=== PATIENT | male | born 1955 | race Caucasian/White ===

== ENCOUNTER → 2017-03-08 | Outpatient (CLI) | payer OTHER ==
[~2017-03-08] MED LIST: ASPI81TA81; CLON1TAB PO; CRAN450T; CYCL1TAB29 PO; DIPH1TAB36; DIPH25CA PO; GABA600T PO; GLIM1TAB PO; HALO1TAB PO; LATA0.002 EACH EYE; METF500T PO; PARO40TA2 PO; PHEN-426 PO; PRED-503 PO; PRED10 PO; PRIM50TA5 PO; STOO100T PO; TAMS0.4C4 PO; ZOLP10TA3 PO; [UNRECOGNIZED DRUG - CODE] EACH EYE
[2017-03-08 07:11] LABS: AUTOMATED NEUTROPHIL # 3.1 TH/MM3 (1.8-7.7); BASOPHIL % 0.6 % (0.0-2.0); EOSINOPHIL # 0.3 TH/MM3 (0-0.4); EOSINOPHIL % 4.7 % (0.0-4.0); HEMATOCRIT 41.9 % (39.0-51.0); HEMO FLAGS DIFF FINAL; LYMPH % 33.5 % (9.0-44.0); LYMPHOCYTE # 2.1 TH/MM3 (1.0-4.8); MEAN CELL VOLUME 88.4 FL (80.0-100.0); MEAN CORPUSCULAR HEMOGLOBIN 30.7 PG (27.0-34.0); MEAN CORPUSCULAR HGB CONC 34.7 % (32.0-36.0); MONO % 12.9 % (0.0-8.0); NEUT % 48.3 % (16.0-70.0); PLATELET COUNT 227 TH/MM3 (150-450); RED BLOOD COUNT 4.75 MIL/MM3 (4.50-5.90); RED CELL DISTRIBUTION WIDTH 13.7 % (11.6-17.2); WHITE BLOOD COUNT 6.4 TH/MM3 (4.0-11.0)
[2017-03-08 07:39] LABS: ALT (GPT) 57 U/L (12-78); ANION GAP 8 MEQ/L (5-15); AST (GOT) 35 U/L (15-37); BICARBONATE 29.1 MEQ/L (21.0-32.0); BLOOD UREA NITROGEN 12 MG/DL (7-18); CHLORIDE 102 MEQ/L (98-107); GLOMERULAR FILTRATION RATE 51 ML/MIN (>89); GLUCOSE,FASTING 199 MG/DL (74-99); POTASSIUM 4.3 MEQ/L (3.5-5.1); SODIUM (NA) 139 MEQ/L (136-145)
[2017-03-08 07:48] LABS: ALKALINE PHOSPHATASE 102 U/L (45-117); TOTAL BILIRUBIN ADULT 0.5 MG/DL (0.2-1.0)
[2017-03-08 13:40] LABS: HEMOGLOBIN A1a 0.9 %; HEMOGLOBIN A1b 2.4 %; HEMOGLOBIN Ao 81.6 %; HEMOGLOBIN LA1C 2.7 %; HEMOGLOBIN P3 4.5 %
== END ==
LOC: CLAB 06:34
PROVIDERS: ATTEND Family Medicine
DX: I10 Essential (primary) hypertension (principal); I63.9 Cerebral infarction, unspecified; E11.65 Type 2 diabetes mellitus with hyperglycemia; T56.0X1A Toxic effect of lead and its compounds, accidental (unintentional), initial encounter; Z91.19 Patient's noncompliance with other medical treatment and regimen
CPT/HCPCS: 36415; 80053; 83036; 83655; 84443; 85025

== ENCOUNTER → 2017-03-10 | Outpatient (CLI) | payer OTHER ==
--- NOTE | 2017-03-10 11:31 | RADRPT ---
EXAM DATE/TIME: 03/10/2017 10:03 [facility] COMPARISON: CT BRAIN W/O CONTRAST, February 21, 2015, 17:18. INDICATIONS : CVA. Left sided weakness and slurred speech for 2 months. MEDICAL HISTORY : Renal calculi. SURGICAL HISTORY : Tonsillectomy. ENCOUNTER: Initial ACUITY: 2 months PAIN SCORE: 0/10 LOCATION: head. TECHNIQUE: Multiplanar, multisequence MRI of the brain was performed without contrast. FINDINGS: CEREBRUM: There is mild to moderate atrophic change with sulcal and ventricular prominence. No evidence of midl ine shift, mass lesion, hemorrhage or acute infarction. No extraaxial fluid collections are seen. T he pituitary gland and suprasellar cistern are normal in configuration. WHITE MATTER: No significant signal abnormalities are seen in the white matter. POSTERIOR FOSSA: The cerebellum and brainstem are intact. The 4th ventricle is midline. The cerebellopontine angle is unremarkable. The cerebellar tonsils are normal in position. DIFFUSION IMAGING: No focal areas of restricted diffusion are seen. No evidence of acute infarction. EXTRACRANIAL: The visualized portions of the orbits and paranasal sinuses are unremarkable. CONCLUSION: 1. No acute hemorrhage, mass or acute infarction. 2. Mild to moderate atrophic change. Danny Eller MD on March 10, 2017 at 11:27 Board Certified Radiologist. This report was verified electronically.
== END ==
LOC: HRAD 10:01
PROVIDERS: ATTEND Family Medicine
DX: I63.9 Cerebral infarction, unspecified (principal)
CPT/HCPCS: 70551

== ENCOUNTER 2017-05-01 13:31 | Observation (INO) | payer OTHER ==
[~2017-05-01] VITALS: Ht 177.8 cm; Wt 84.0 kg
[~2017-05-01 13:31] MED LIST changes: -PRED10 PO
[2017-05-01 13:36] VITALS: BP 140/80; PULSE 85; RESP 18; TEMP 97.7; O2SAT 99
--- NOTE | 2017-05-01 13:48 | PD ---
HPI Chief Complaint: Altered Mental Status Time Seen by Provider: 13:48 Travel History International Travel<30 days: No Contact w/Intl Traveler<30days: No Traveled to known affect area: No History of Present Illness HPI 61-year-old male presents to emergency department by [facility] ambulance for evaluation. Patient has history of dementia, hypertension, TIAs, renal disease, presents to the emergency department after his ex- found him walking around the house naked. When [facility] arrived, patient was lying in his bed naked. Patient seemed oriented however as mentioned the curtains in the room looked like the ones he had in his bedroom, all the while the patient was in his bedroom. Patient here is a poor historian. He does report a history of lead poisoning. Reports his as his ex- however in review of records on March 18, the patient was evaluated by Dr. Perez for worsening confusion and MRI was ordered. Per Dr. Perez his note, At that time the was filing for divorce due to the stressors of caring for the patient. MRI showed no acute stroke. Patient has otherwise been well. He is had no recent illnesses, fever, chills. Patient states that at times he does get confused and he is aware of this. Denies chest or tightness. No difficulty breathing. No headaches, focal deficits, weakness. Patient has no other symptoms reported. PFSH Past Medical History Hx Anticoagulant Therapy: No Arthritis: No Asthma: No Autoimmune Disease: No Anxiety: Yes Depression: Yes Heart Rhythm Problems: No Cardiovascular Problems: Yes (MURMUR) High Cholesterol: Yes Chemotherapy: No Chest Pain: No Congestive Heart Failure: No COPD: No Cerebrovascular Accident: Yes ("Couple of mini strokes") Diabetes: Yes (type 2) Patient Takes Glucophage: Yes (METFORMIN) Diminished Hearing: No Gastrointestinal Disorders: Yes GERD: No Genitourinary: Yes (BPH) Headaches: Yes Hiatal Hernia: No Immune Disorder: Yes Kidney Stones: No (present on admission ) Medical other: Yes (LEAD POISONING) Musculoskeletal: Yes (back pain) Neurologic: No Reproductive: No Respiratory: Yes (bronchitis) Immunizations Current: No Migraines: No Renal Failure: No Seizures: No Sleep Apnea: No Ulcer: No Past Surgical History Abdominal Surgery: No Cardiac Surgery: No Ear Surgery: No Endocrine Surgery: No Eye Surgery: No Genitourinary Surgery: No Gynecologic Surgery: No Oral Surgery: No Pacemaker: No Thoracic Surgery: No Tonsillectomy: Yes 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 Primidone 50 Mg Tab 50 Mg PO BID Glimepiride 1 Mg Tab 1 Mg PO BID Take with breakfast or first main meal Gabapentin 600 Mg Tab 600 Mg PO HS Paroxetine (Paroxetine HCl) 40 Mg Tab 40 Mg PO BID Stool Softener (Docusate Sodium) 100 Mg Tab 100 Mg PO DAILY Reported Metformin (Metformin HCl) 500 Mg Tab 500 Mg PO DAILY IN THE MORNING With a meal Prednisone 10 Mg Tab 10 Mg PO BID Tamsulosin (Tamsulosin HCl) 0.4 Mg Cap 0.4 Mg PO HS Phenazopyridine (Phenazopyridine HCl) 100 Mg Tab 100 Mg PO BID PRN Diphenhydramine (Diphenhydramine HCl) 25 Mg Cap 25 Mg PO HS PRN Haloperidol 1 Mg Tab 1 Mg PO BID Flexeril (Cyclobenzaprine HCl) 10 Mg Tab 10 Mg PO BID Zolpidem (Zolpidem Tartrate) 10 Mg Tab 10 Mg PO HS PRN Clonazepam 1 Mg Tab 1.5 Mg PO TID takes 1.5 tabs tid Aspir-81 (Aspirin) 81 Mg Tabdr 81 Mg DAILY Review of Systems Except as stated in HPI: all other systems reviewed are Neg Physical Exam Narrative GENERAL: Well-nourished pleasantly confused male in no acute distress SKIN: Focused skin assessment warm/dry. HEAD: Atraumatic. Normocephalic. EYES: Pupils equal and round. No scleral icterus. No injection or drainage. ENT: No nasal bleeding or discharge. Mucous membranes pink and moist. NECK: Trachea midline. No JVD. CARDIOVASCULAR: Regular rate and rhythm. 2/6 systolic murmur appreciated. RESPIRATORY: No accessory muscle use. Clear to auscultation. Breath sounds equal bilaterally. GASTROINTESTINAL: Abdomen soft, non-tender, nondistended. Hepatic and splenic margins not palpable. MUSCULOSKELETAL: No obvious deformities. No clubbing. No cyanosis. No edema. NEUROLOGICAL: Awake and alert. No obvious cranial nerve deficits. Motor grossly within normal limits. Normal speech. Data Data Last Documented VS Vital Signs Date Time Temp Pulse Resp B/P Pulse Ox O2 Delivery O2 Flow Rate FiO2 05/01/17 15:50 84 18 135/84 99 Room Air 05/01/17 13:36 97.7 Orders Electrocardiogram (05/01/17 13:46) Ammonia (05/01/17 13:46) Complete Blood Count With Diff (05/01/17 13:46) Comprehensive Metabolic Panel (05/01/17 13:46) Creatine Kinase (Cpk) (05/01/17 13:46) Prothrombin Time / Inr (Pt) (05/01/17 13:46) Act Partial Throm Time (Ptt) (05/01/17 13:46) Thyroid Stimulating Hormone (05/01/17 13:46) Urinalysis - C+S If Indicated (05/01/17 13:46) Chest, Single Ap (05/01/17 13:46) Ct Brain W/O Iv Contrast(Rout) (05/01/17 13:46) Blood Glucose (05/01/17 13:46) Ecg Monitoring (05/01/17 13:46) Iv Access Insert/Monitor (05/01/17 13:46) Oximetry (05/01/17 13:46) Sodium Chloride 0.9% Flush (Ns Flush) (05/01/17 14:00) Psych Screen (05/01/17 16:24) Labs Laboratory Tests Test 05/01/17 05/01/17 05/01/17 13:55 13:58 14:51 White Blood Count 6.2 TH/MM3 Red Blood Count 5.02 MIL/MM3 Hemoglobin 13.9 GM/DL Hematocrit 43.1 % Mean Corpuscular Volume 85.8 FL Mean Corpuscular Hemoglobin 27.6 PG Mean Corpuscular Hemoglobin 32.2 % Concent Red Cell Distribution Width 13.4 % Platelet Count 241 TH/MM3 Mean Platelet Volume 8.9 FL Neutrophils (%) (Auto) 43.1 % Lymphocytes (%) (Auto) 32.0 % Monocytes (%) (Auto) 12.6 % Eosinophils (%) (Auto) 11.8 % Basophils (%) (Auto) 0.5 % Neutrophils # (Auto) 2.7 TH/MM3 Lymphocytes # (Auto) 2.0 TH/MM3 Monocytes # (Auto) 0.8 TH/MM3 Eosinophils # (Auto) 0.7 TH/MM3 Basophils # (Auto) 0.0 TH/MM3 CBC Comment DIFF FINAL Differential Comment Prothrombin Time 10.9 SEC Prothromb Time International 1.0 RATIO Ratio Activated Partial 28.0 SEC Thromboplast Time Sodium Level 139 MEQ/L Potassium Level 4.8 MEQ/L Chloride Level 103 MEQ/L Carbon Dioxide Level 31.4 MEQ/L Anion Gap 5 MEQ/L Blood Urea Nitrogen 11 MG/DL Creatinine 0.93 MG/DL Estimat Glomerular Filtration 82 ML/MIN Rate Random Glucose 84 MG/DL Calcium Level 9.7 MG/DL Total Bilirubin 0.5 MG/DL Aspartate Amino Transf 38 U/L (AST/SGOT) Alanine Aminotransferase 26 U/L (ALT/SGPT) Alkaline Phosphatase 109 U/L Total Creatine Kinase 83 U/L Total Protein 6.7 GM/DL Albumin 3.2 GM/DL Thyroid Stimulating Hormone 2.560 uIU/ML 3rd Gen Ammonia 24 MCMOL/L Urine Color YELLOW Urine Turbidity CLEAR Urine pH 5.0 Urine Specific Kila 1.020 Urine Protein TRACE mg/dL Urine Glucose (UA) 300 mg/dL Urine Ketones NEG mg/dL Urine Occult Blood NEG Urine Nitrite NEG Urine Bilirubin NEG Urine Urobilinogen LESS THAN 2.0 MG/DL Urine Leukocyte Esterase NEG Urine RBC 1 /hpf Urine WBC 3 /hpf Urine Squamous Epithelial <1 /hpf Cells Urine Hyaline Casts 3 /lpf Urine Mucus FEW /lpf Microscopic Urinalysis Comment CATH-CULT NOT IND MDM Medical Decision Making Medical Screen Exam Complete: Yes Emergency Medical Condition: Yes Medical Record Reviewed: Yes Differential Diagnosis Dementia versus electrolyte abnormality versus intracranial hemorrhage versus neoplasm versus UTI Narrative Course 61-year-old male presents to emergency department for evaluation of confusion. Per the patient's record, confusion is not new as he has history of dementia. He had a MRI on March 20 that was without acute concern. Patient denies any pain. States that he no fever confused sometimes. States that he has been falling and this is consistent with his most recent primary care visit with Dr. Perez. Vital signs are stable. Neuro exam is nonfocal. Laboratory Tests Test 6/05/01/17 05/01/17 13:55 13:58 14:51 White Blood Count 6.2 TH/MM3 Red Blood Count 5.02 MIL/MM3 Hemoglobin 13.9 GM/DL Hematocrit 43.1 % Mean Corpuscular Volume 85.8 FL Mean Corpuscular Hemoglobin 27.6 PG Mean Corpuscular Hemoglobin 32.2 % Concent Red Cell Distribution Width 13.4 % Platelet Count 241 TH/MM3 Mean Platelet Volume 8.9 FL Neutrophils (%) (Auto) 43.1 % Lymphocytes (%) (Auto) 32.0 % Monocytes (%) (Auto) 12.6 % Eosinophils (%) (Auto) 11.8 % Basophils (%) (Auto) 0.5 % Neutrophils # (Auto) 2.7 TH/MM3 Lymphocytes # (Auto) 2.0 TH/MM3 Monocytes # (Auto) 0.8 TH/MM3 Eosinophils # (Auto) 0.7 TH/MM3 Basophils # (Auto) 0.0 TH/MM3 CBC Comment DIFF FINAL Differential Comment Prothrombin Time 10.9 SEC Prothromb Time International 1.0 RATIO Ratio Activated Partial 28.0 SEC Thromboplast Time Sodium Level 139 MEQ/L Potassium Level 4.8 MEQ/L Chloride Level 103 MEQ/L Carbon Dioxide Level 31.4 MEQ/L Anion Gap 5 MEQ/L Blood Urea Nitrogen 11 MG/DL Creatinine 0.93 MG/DL Estimat Glomerular Filtration 82 ML/MIN Rate Random Glucose 84 MG/DL Calcium Level 9.7 MG/DL Total Bilirubin 0.5 MG/DL Aspartate Amino Transf 38 U/L (AST/SGOT) Alanine Aminotransferase 26 U/L (ALT/SGPT) Alkaline Phosphatase 109 U/L Total Creatine Kinase 83 U/L Total Protein 6.7 GM/DL Albumin 3.2 GM/DL Thyroid Stimulating Hormone 2.560 uIU/ML 3rd Gen Ammonia 24 MCMOL/L Urine Color YELLOW Urine Turbidity CLEAR Urine pH 5.0 Urine Specific Kila 1.020 Urine Protein TRACE mg/dL Urine Glucose (UA) 300 mg/dL Urine Ketones NEG mg/dL Urine Occult Blood NEG Urine Nitrite NEG Urine Bilirubin NEG Urine Urobilinogen LESS THAN 2.0 MG/DL Urine Leukocyte Esterase NEG Urine RBC 1 /hpf Urine WBC 3 /hpf Urine Squamous Epithelial <1 /hpf Cells Urine Hyaline Casts 3 /lpf Urine Mucus FEW /lpf Microscopic Urinalysis Comment CATH-CULT NOT IND Lab work is without acute concern. Patient will be discharged home. Attempt to contact /exwife has been unsuccessful at this time. [id number] patient has been discharged and case management has contacted the ex- who resides with the patient. She is refusing at this time to take the patient back and states "she is going to kill me." Case management request a psychiatric screening. This is ordered. 175 I'm informed that case management has again contacted the who is refusing for the patient to return home. Case management has contacted [facility]. The patient will be admitted observation This time. [facility] [id number] Tejada Patient will be admitted observation at this time. Diagnosis Primary Impression: Confusion Additional Impression: History of dementia Admitting Information Admitting Physician Requests: Observation Referrals: Primary Care Physician Patient Instructions: Dementia (ED), General Instructions Additional Instructions: Follow-up with a primary care provider Return immediately with any acute worsening symptoms Med/Other Pt SpecificInfo: No Change to Meds Condition: Stable Mary Roldan May 01, 2017 13:48
[2017-05-01] MEDS ORDERED: SODIUM CHLORIDE 0.9% FLUSH 5 ML FLUSH IV FLUSH PRN (14:00)
--- NOTE | 2017-05-01 14:09 | RADRPT ---
EXAM DATE/TIME: 05/01/2017 13:44 [facility] COMPARISON: CHEST SINGLE AP, August 28, 2016, 0:00. INDICATIONS : Dizziness, weakness. MEDICAL HISTORY : Diabetes mellitus type II. SURGICAL HISTORY : None. ENCOUNTER: Initial ACUITY: 1 day PAIN SCORE: 0/10 LOCATION: Bilateral chest FINDINGS: Portable AP view of the chest demonstrates a normal-sized cardiac silhouette. No effusion, consolidat ion, or pneumothorax is visualized. The bones and soft tissues demonstrate no acute abnormality. The peripheral inferior right hemithorax is not completely visualized. CONCLUSION: No acute cardiopulmonary abnormality is identified. Akira De Leon MD on May 01, 2017 at 14:04 Board Certified Radiologist. This report was verified electronically.
[2017-05-01 14:28] LABS: AUTOMATED NEUTROPHIL # 2.7 TH/MM3 (1.8-7.7); BASOPHIL % 0.5 % (0.0-2.0); EOSINOPHIL # 0.7 TH/MM3 (0-0.4); EOSINOPHIL % 11.8 % (0.0-4.0); HEMATOCRIT 43.1 % (39.0-51.0); HEMO FLAGS DIFF FINAL; MEAN CELL VOLUME 85.8 FL (80.0-100.0); MEAN CORPUSCULAR HEMOGLOBIN 27.6 PG (27.0-34.0); MEAN CORPUSCULAR HGB CONC 32.2 % (32.0-36.0); MONO % 12.6 % (0.0-8.0); NEUT % 43.1 % (16.0-70.0); PLATELET COUNT 241 TH/MM3 (150-450); RED BLOOD COUNT 5.02 MIL/MM3 (4.50-5.90); RED CELL DISTRIBUTION WIDTH 13.4 % (11.6-17.2); WHITE BLOOD COUNT 6.2 TH/MM3 (4.0-11.0)
[2017-05-01 14:36] LABS: PROTHROMBIN TIME - PATIENT 10.9 SEC (9.8-11.6)
[2017-05-01 14:39] VITALS: O2SAT 99
[2017-05-01 15:15] LABS: BLOOD, URINE NEG (NEG); COMMENT (UR) CATH-CULT NOT IND; CULTURE IF INDICATED CATH CULTURE NOT IND; GLUCOSE,URINE 300 mg/dL (NEG); HYALINE CAST, URINE 3 /lpf (RARE); KETONE, URINE NEG (NEG); MUCUS URINE FEW /lpf (OCC); NITRITE,URINE NEG (NEG); SQUAMOUS EPITHELIAL CELL URINE <1 /hpf (0-5); URINE COLOR YELLOW (YELLW/STRAW)
[2017-05-01 15:21] LABS: ALKALINE PHOSPHATASE 109 U/L (45-117); ALT (GPT) 26 U/L (12-78); ANION GAP 5 MEQ/L (5-15); AST (GOT) 38 U/L (15-37); BICARBONATE 31.4 MEQ/L (21.0-32.0); BLOOD UREA NITROGEN 11 MG/DL (7-18); CHLORIDE 103 MEQ/L (98-107); GLOMERULAR FILTRATION RATE 82 ML/MIN (>89); SODIUM (NA) 139 MEQ/L (136-145); TOTAL BILIRUBIN ADULT 0.5 MG/DL (0.2-1.0)
[2017-05-01] MEDS ORDERED: METF500T PO (15:21)
[2017-05-01] MEDS ORDERED: PRED10 PO (15:21)
[2017-05-01 15:22] LABS: CREATINE KINASE 83 U/L (39-308); POTASSIUM 4.8 MEQ/L (3.5-5.1)
--- NOTE | 2017-05-01 15:26 | RADRPT ---
EXAM DATE/TIME: 05/01/2017 14:36 [facility] COMPARISON: CT BRAIN W/O CONTRAST, February 21, 2015, 17:18. INDICATIONS : Altered mental status, balance problems. RADIATION DOSE: 37.12 CTDIvol (mGy) MEDICAL HISTORY : Stroke. Seizures. Dementia. SURGICAL HISTORY : Tonsillectomy. ENCOUNTER: Initial ACUITY: 1 day PAIN SCALE: 0/10 LOCATION: cranial TECHNIQUE: Multiple contiguous axial images were obtained of the head. Using automated exposure control and adj ustment of the mA and/or kV according to patient size, radiation dose was kept as low as reasonably a chievable to obtain optimal diagnostic quality images. FINDINGS: CEREBRUM: The ventricles are normal for age. No evidence of midline shift, mass lesion, hemorrhage or acute in farction. No extra-axial fluid collections are seen. POSTERIOR FOSSA: The cerebellum and brainstem are intact. The 4th ventricle is midline. The cerebellopontine angle i s unremarkable. EXTRACRANIAL: The visualized portion of the orbits is intact. SKULL: The calvaria is intact. No evidence of skull fracture. CONCLUSION: 1. No acute intracranial abnormality. Kody Jackson MD on May 01, 2017 at 15:23 Board Certified Radiologist. This report was verified electronically.
[2017-05-01 15:50] VITALS: BP 135/84; PULSE 84; RESP 18; O2SAT 99
[2017-05-01 18:05] VITALS: BP 127/88; PULSE 84; RESP 16; O2SAT 98
--- NOTE | 2017-05-01 18:30 | HHI.HP ---
[facility] Service [facility] Primary Care Physician No Primary Care Physician Admission Diagnosis Confusion; history of dementia; refusing patient return home Diagnoses: Chief Complaint: Confusion Travel History International Travel<30 Days: No Contact w/Intl Traveler <30 Da: No Traveled to Known Affected Are: No History of Present Illness Patient is a 61-year-old male with history of dementia TIA hypertension who was brought in by called EMS apparently because claimed that the patient was walking around naked in the house. Patient was brought in here and was evaluated by ER physician. Was seen by 6 site screen. Patient currently on exam is very cooperative A and O 3. He states that the he lives with his pretty much independent in all ADLs. He states that he had a "weird day and I fell off the bed and hit my head on the wall. Patient states that he woke up later feeling unsteady on his feet. He was evaluated here in the ER labs head CT negative. Vital signs stable. Patient was able to give the entire history for for me. On review of ER discussion when the patient was cleared to be discharged and when they called his . refused to take him back and states that "he is too much for me to take care of". Patient admitted overnight for further evaluation of disposition. Patient currently is very pleasant cooperative denies any pain. The much in ambulate independently. Continent of urine and stools. Review of Systems Constitutional: DENIES: Diaphoretic episodes, Fatigue, Fever, Weight gain, Weight loss, Chills, Dizziness, Change in appetite, Night Sweats Ears, nose, mouth, throat: DENIES: Tinnitus, Hearing loss, Vertigo, Nasal discharge, Oral lesions, Throat pain, Hoarseness, Ear Pain, Running Nose, Epistaxis, Sinus Pain, Toothache, Odynophagia Respiratory: DENIES: Apneas, Cough, Snoring, Wheezing, Hemoptysis, Sputum production, Shortness of breath Cardiovascular: DENIES: Chest pain, Palpitations, Syncope, Dyspnea on Exertion , PND, Lower Extremity Edema, Orthopnea, Claudication Gastrointestinal: DENIES: Abdominal pain, Black stools, Bloody stools, Constipation, Diarrhea, Nausea, Vomiting, Difficulty Swallowing, Anorexia Genitourinary: DENIES: Sexual dysfunction, Urinary frequency, Urinary incontinence, Urgency, Hematuria, Dysuria, Nocturia, Penile Discharge, Testicular Pain, Testicular Swelling Musculoskeletal: DENIES: Joint pain, Muscle aches, Stiffness, Joint Swelling, Back pain, Neck pain Integumentary: DENIES: Abnormal pigmentation, Nail changes, Pruritus, Rash Hematologic/lymphatic: DENIES: Bruising, Lymphadenopathy Immunologic/allergic: DENIES: Eczema, Urticaria Neurologic: DENIES: Abnormal gait, Headache, Localized weakness, Paresthesias, Seizures, Speech Problems, Tremor, Poor Balance Psychiatric: COMPLAINS OF: Confusion (per has some episodes of confusion/ dementia) Past Family Social History Past Medical History Hypertension Patient states he is on a lot of medications and his sets up the pills for him Past Surgical History No major surgeries Reported Medications Per list from ER Flomax Gabapentin Paroxetine Haloperidol Primidone Clonazepam Metformin Flexeril Diphenhydramine Aspirin The omeprazole right Allergies: Coded Allergies: Codeine (Verified Allergy, Unknown, 05/01/17) Family History Noncontributory Social History Never smoked. History of alcohol abuse last drink was almost like in 1984 Denies substance abuse Physical Exam Vital Signs Vital Signs Date Time Temp Pulse Resp B/P Pulse Ox O2 Delivery O2 Flow Rate FiO2 05/01/17 18:05 84 16 127/88 98 Room Air 05/01/17 15:50 84 18 135/84 99 Room Air 05/01/17 14:39 99 Room Air 05/01/17 13:43 83 18 99 Room Air 05/01/17 13:36 97.7 85 18 140/80 99 Physical Exam GENERAL: This is a well-nourished, well-developed patient, in no apparent distress. SKIN: No rashes, ecchymoses or lesions. Cool and dry. HEAD: Atraumatic. Normocephalic. No temporal or scalp tenderness. EYES: Pupils equal round and reactive. Extraocular motions intact. No scleral icterus. ENT: Nose without bleeding, purulent drainage or septal hematoma. Throat without erythema, . Airway patent. NECK: Trachea midline. No JVD or lymphadenopathy. Supple, nontender, no meningeal signs. CARDIOVASCULAR: Regular rate and rhythm without murmurs, gallops, or rubs. RESPIRATORY: Clear to auscultation. Breath sounds equal bilaterally. No wheezes , rales, or rhonchi. GASTROINTESTINAL: Abdomen soft, non-tender, nondistended. No hepato-splenomegaly , or palpable masses. No guarding. MUSCULOSKELETAL: Extremities without clubbing, cyanosis, or edema. No joint tenderness, effusion, or edema noted. No calf tenderness. Negative Homans sign bilaterally. NEUROLOGICAL: Awake and alert. Cranial nerves II through XII intact. Motor and sensory grossly within normal limits. Five out of 5 muscle strength in all muscle groups. Normal speech. Gait slow but steady Laboratory Laboratory Tests Test 05/01/17 05/01/17 05/01/17 13:55 13:58 14:51 White Blood Count 6.2 Red Blood Count 5.02 Hemoglobin 13.9 Hematocrit 43.1 Mean Corpuscular Volume 85.8 Mean Corpuscular Hemoglobin 27.6 Mean Corpuscular Hemoglobin 32.2 Concent Red Cell Distribution Width 13.4 Platelet Count 241 Mean Platelet Volume 8.9 Neutrophils (%) (Auto) 43.1 Lymphocytes (%) (Auto) 32.0 Monocytes (%) (Auto) 12.6 Eosinophils (%) (Auto) 11.8 Basophils (%) (Auto) 0.5 Neutrophils # (Auto) 2.7 Lymphocytes # (Auto) 2.0 Monocytes # (Auto) 0.8 Eosinophils # (Auto) 0.7 Basophils # (Auto) 0.0 CBC Comment DIFF FINAL Differential Comment Prothrombin Time 10.9 Prothromb Time International 1.0 Ratio Activated Partial 28.0 Thromboplast Time Sodium Level 139 Potassium Level 4.8 Chloride Level 103 Carbon Dioxide Level 31.4 Anion Gap 5 Blood Urea Nitrogen 11 Creatinine 0.93 Estimat Glomerular Filtration 82 Rate Random Glucose 84 Calcium Level 9.7 Total Bilirubin 0.5 Aspartate Amino Transf 38 (AST/SGOT) Alanine Aminotransferase 26 (ALT/SGPT) Alkaline Phosphatase 109 Total Creatine Kinase 83 Total Protein 6.7 Albumin 3.2 Thyroid Stimulating Hormone 2.560 3rd Gen Ammonia 24 Urine Color YELLOW Urine Turbidity CLEAR Urine pH 5.0 Urine Specific [place] 1.020 Urine Protein TRACE Urine Glucose (UA) 300 Urine Ketones NEG Urine Occult Blood NEG Urine Nitrite NEG Urine Bilirubin NEG Urine Urobilinogen LESS THAN 2.0 Urine Leukocyte Esterase NEG Urine RBC 1 Urine WBC 3 Urine Squamous Epithelial <1 Cells Urine Hyaline Casts 3 Urine Mucus FEW Microscopic Urinalysis Comment CATH-CULT NOT IND Result Diagram: 05/01/17 1355 05/01/17 1355 Imaging Last Impressions Head CT 05/01/17 1346 Signed Impressions: Service Date/Time: Monday, May 01, 2017 14:36 - CONCLUSION: 1. No acute intracranial abnormality. Kody Jackson MD Chest X-Ray 05/01/17 1346 Signed Impressions: Service Date/Time: Monday, May 01, 2017 13:44 - CONCLUSION: No acute cardiopulmonary abnormality is identified. Akira De Leon MD Assessment and Plan Assessment and Plan 61-year-old male brought in here by because of Acute confusion patient right now appears very lucid. Some baseline dementia. UA complete metabolic panel CBC CT all normal chest x-ray normal, EKG reviewed by me unremarkable We'll check neuro vital signs every shift head CT negative. Lab works unremarkable. Continue home meds History of diabetes type 2. States that took him off the diabetic medications. Monitor blood sugars for now range +glucosuria, BG on chemistry normal. check FS bid and record. check hemoglobin a1C Metformin on the medlist-once daily- will hold off for now History of glaucoma. Continue eyedrops History of BPH. Continue Flomax. UA negative Up and ambulate, Out of chair tid. CM consulted for DC planning Admit overnight for observation and will ask case management for assistance. Discussed Condition With Patient and staff nurse and ER physician Titus Tejada MD May 01, 2017 18:30
[2017-05-01] MEDS ORDERED: diphenhydrAMINE HCL 25 MG CAP PO PRN (18:45)
[2017-05-01 20:50] VITALS: BP 155/93; PULSE 90; RESP 20; TEMP 98.4; O2SAT 96
[2017-05-01] MEDS: GABAPENTIN 300 MG CAP PO SCH (21:12)
[2017-05-01] MEDS: CYCLOBENZAPRINE HCL 10 MG TAB PO SCH (21:12)
[2017-05-01] MEDS: TAMSULOSIN HCL 0.4 MG CAP PO SCH (21:12)
[2017-05-01] MEDS: PRIMIDONE 50 MG TAB PO SCH (22:01)
[2017-05-01] MEDS: HALOPERIDOL 1 MG TAB PO SCH (22:01)
[2017-05-01] MEDS: TIMOLOL MALEATE 0.5% OPHT SOLN 5 ML BTL EACH EYE SCH (22:01)
[2017-05-01] MEDS: LATANOPROST 0.005% OPHT SOLN 2.5 ML BTL EACH EYE SCH (22:01)
[2017-05-02 00:05] VITALS: BP 121/74; PULSE 90; RESP 20; TEMP 98.5; O2SAT 93
[2017-05-02 03:51] VITALS: BP 120/78; PULSE 78; RESP 20; TEMP 98.5; O2SAT 92
[2017-05-02 07:28] VITALS: BP 131/80; PULSE 86; RESP 16; TEMP 98.5; O2SAT 95
--- NOTE | 2017-05-02 07:43 | HHI.PR ---
Subjective Remarks awake and alert, denies any headache, or pains states he did not sleep well last night-"they keep on coming taking my blood pressure" states huis name and 's name "Tracy" knows he is "in bed in the hospital", oriented to year speech slow but clear Objective Vitals Vital Signs Date Time Temp Pulse Resp B/P Pulse Ox O2 Delivery O2 Flow Rate FiO2 05/02/17 07:28 98.5 86 16 131/80 95 05/02/17 03:51 98.5 78 20 120/78 92 05/02/17 00:05 98.5 90 20 121/74 93 05/01/17 20:50 98.4 90 20 155/93 96 05/01/17 18:05 84 16 127/88 98 Room Air 05/01/17 15:50 84 18 135/84 99 Room Air 05/01/17 14:39 99 Room Air 05/01/17 13:43 83 18 99 Room Air 05/01/17 13:36 97.7 85 18 140/80 99 I/O 05/01/17 05/01/17 05/01/17 05/02/17 05/02/17 05/02/17 07:00 15:00 23:00 07:00 15:00 23:00 Intake Total 120 ml Output Total 650 ml Balance -530 ml Intake Oral 120 ml Output Urine Total 650 ml # Voids 4 Result Diagram: 05/01/17 1355 05/01/17 1355 Imaging Last Impressions Head CT 05/01/17 1346 Signed Impressions: Service Date/Time: Monday, May 01, 2017 14:36 - CONCLUSION: 1. No acute intracranial abnormality. Kody Jackson MD Chest X-Ray 05/01/17 1346 Signed Impressions: Service Date/Time: Monday, May 01, 2017 13:44 - CONCLUSION: No acute cardiopulmonary abnormality is identified. Akira De Leon MD Objective Remarks awake and alert, oriented x 3, speech slow but clear, affect blunt anicteric lungs no rales regular rhythm abdmen soft, nontender extremities no edema moves all extremities equally A/P Assessment and Plan 61-year-old male brought in here by because of Acute confusion patient right now appears very lucid. Underlying dementia. UA,complete metabolic panel, CBC, TSH -all normal chest x-ray normal, EKG - reviewed by me unremarkable Head CT - no NPH We'll check neuro vital signs every shift Continue home meds check B12, folate level History of diabetes type 2. States that took him off the diabetic medications. Monitor blood sugars for now range +glucosuria, BG on chemistry normal. check FS bid and record. check hemoglobin a1C Metformin still on the med list-once daily-- but pt states has been off it - discontinue History of glaucoma. Continue eyedrops History of BPH. Continue Flomax. UA negative Up and ambulate, Out of chair tid for all meals.PT consult gait eval/safety CM consulted for DC planning Titus Tejada MD May 02, 2017 07:43
[2017-05-02] MEDS ORDERED: metFORMIN HCL 500 MG TAB PO SCH (09:00)
[2017-05-02] MEDS ORDERED: clonazePAM 1 MG TAB PO SCH (09:00)
[2017-05-02] MEDS: PARoxetine HCL 20 MG TAB PO SCH (09:55)
[2017-05-02] MEDS: PRIMIDONE 50 MG TAB PO SCH ×2 (09:55→22:44)
[2017-05-02] MEDS: HALOPERIDOL 1 MG TAB PO SCH ×2 (09:55→22:44)
[2017-05-02] MEDS: CYCLOBENZAPRINE HCL 10 MG TAB PO SCH ×2 (09:55→22:44)
[2017-05-02] MEDS: TIMOLOL MALEATE 0.5% OPHT SOLN 5 ML BTL EACH EYE SCH ×2 (09:55→22:43)
[2017-05-02] MEDS: DOCUSATE SODIUM 100 MG CAP PO SCH (09:55)
[2017-05-02] MEDS: ASPIRIN EC 81 MG TABEC PO SCH (09:55)
[2017-05-02] MEDS: clonazePAM 1 MG TAB PO SCH ×3 (09:56→18:08)
[2017-05-02 11:15] VITALS: BP 128/88; PULSE 88; RESP 16; TEMP 98.4; O2SAT 90
--- NOTE | 2017-05-02 12:29 | EKG ---
Date Performed: 05/01/2017 Time Performed: 14:24:32 PTAGE: 61 years EKG: Sinus rhythm NONSPECIFIC T-WAVE ABNORMALITY BORDERLINE ECG PREVIOUS TRACING : 06/24/2016 17.42 Compared to prior tracing no significant change DOCTOR: Rafa Palm Interpretating Date/Time 05/02/2017 12:25:29
[2017-05-02 14:57] VITALS: BP 119/86; PULSE 83; RESP 16; TEMP 98.5; O2SAT 95
[2017-05-02] MEDS: LATANOPROST 0.005% OPHT SOLN 2.5 ML BTL EACH EYE SCH (22:43)
[2017-05-02] MEDS: TAMSULOSIN HCL 0.4 MG CAP PO SCH (22:44)
[2017-05-02] MEDS: GABAPENTIN 300 MG CAP PO SCH (22:44)
[2017-05-03] MEDS: ZOLPIDEM TARTRATE 10 MG TAB PO PRN ×2 (01:07→20:10)
[2017-05-03 04:18] VITALS: BP 109/72; PULSE 79; RESP 14; TEMP 98.7; O2SAT 91
[2017-05-03] MEDS: ASPIRIN EC 81 MG TABEC PO SCH (08:19)
[2017-05-03] MEDS: DOCUSATE SODIUM 100 MG CAP PO SCH (08:19)
[2017-05-03] MEDS: clonazePAM 1 MG TAB PO SCH ×3 (08:19→17:07)
[2017-05-03] MEDS: PARoxetine HCL 20 MG TAB PO SCH (08:19)
[2017-05-03] MEDS: TIMOLOL MALEATE 0.5% OPHT SOLN 5 ML BTL EACH EYE SCH ×2 (08:19→20:09)
[2017-05-03] MEDS: CYCLOBENZAPRINE HCL 10 MG TAB PO SCH ×2 (08:19→20:10)
[2017-05-03] MEDS: HALOPERIDOL 1 MG TAB PO SCH ×2 (08:19→20:10)
[2017-05-03] MEDS: PRIMIDONE 50 MG TAB PO SCH ×2 (08:19→21:00)
[2017-05-03 08:30] VITALS: BP 109/70; RESP 18; TEMP 98
--- NOTE | 2017-05-03 10:37 | HHI.PR ---
Subjective Remarks Follow up for confusion. The patient is currently awake, alert, oriented x4. He has no medical complaints today. Denies any headache, lightheadedness, dizziness , chest pain, shortness of breath, abdominal or urinary complaints. He states his called the police because he was disoriented and unsteady on his feet. He states him and his have not been getting along recently. He is unsure if he can return to his home. Objective Vitals Vital Signs Date Time Temp Pulse Resp B/P Pulse Ox O2 Delivery O2 Flow Rate FiO2 05/03/17 08:30 98.0 18 109/70 05/03/17 04:18 98.7 79 14 109/72 91 05/02/17 14:57 98.5 83 16 119/86 95 05/02/17 11:15 98.4 88 16 128/88 90 I/O 05/02/17 05/02/17 05/02/17 05/03/17 05/03/17 05/03/17 07:00 15:00 23:00 07:00 15:00 23:00 Intake Total 120 ml 360 ml Output Total 650 ml 350 ml Balance -530 ml -350 ml 360 ml Intake Oral 120 ml 360 ml Output Urine Total 650 ml 350 ml # Voids 4 Result Diagram: 05/01/17 1355 05/01/17 1355 Imaging Last Impressions Head CT 05/01/17 1346 Signed Impressions: Service Date/Time: Monday, May 01, 2017 14:36 - CONCLUSION: 1. No acute intracranial abnormality. Kody Jackson MD Chest X-Ray 05/01/17 1346 Signed Impressions: Service Date/Time: Monday, May 01, 2017 13:44 - CONCLUSION: No acute cardiopulmonary abnormality is identified. Akira De Leon MD Objective Remarks GENERAL: Well-nourished, well-developed male patient in NAD. SKIN: Warm and dry. No rash. HEENT: Normocephalic. Atraumatic. Pupils equal and round. Mucous membranes pink and moist. NECK: Supple. Trachea midline. CARDIOVASCULAR: Regular rate and rhythm. S1, S2 noted. 2/6 systolic murmur noted. RESPIRATORY: No accessory muscle use. Clear to auscultation. Breath sounds equal bilaterally. GASTROINTESTINAL: Abdomen soft, non-tender, nondistended. Normoactive bowel sounds x4. MUSCULOSKELETAL: No obvious deformities. Extremities without clubbing, cyanosis , or edema. NEUROLOGICAL: Awake and alert. No obvious cranial nerve deficits. Motor grossly within normal limits. 5/5 muscle strength in bilateral upper and lower extremities. Normal speech. PSYCHIATRIC: Appropriate mood and affect; insight and judgment normal. Medications and IVs Current Medications Medications (Trade) Dose Ordered Sig/Fredrick Route Start Time Stop Time Status Last Admin (NS Flush) 2 ml UNSCH PRN IV FLUSH 05/01/17 14:00 (Ecotrin Ec) 81 mg DAILY PO 05/02/17 09:00 05/03/17 08:19 (Flexeril) 10 mg BID PO 05/01/17 21:00 05/03/17 08:19 (Benadryl) 25 mg HS PRN PO 05/01/17 18:45 (Neurontin) 600 mg HS PO 05/01/17 21:00 05/02/17 22:44 (Haldol) 1 mg BID PO 05/01/17 21:00 05/03/17 08:19 (Xalatan 0.005% Opth Soln) 1 drop HS EACH EYE 05/01/17 21:00 05/02/17 22:43 (Paxil) 40 mg DAILY PO 05/02/17 09:00 05/03/17 08:19 (Mysoline) 50 mg BID PO 05/01/17 21:00 05/03/17 08:19 (Flomax) 0.4 mg HS PO 05/01/17 21:00 05/02/17 22:44 (Timoptic 0.5% Opth Soln) 1 drop BID EACH EYE 05/01/17 21:00 05/03/17 08:19 (Ambien) 10 mg HS PRN PO 05/01/17 18:45 05/03/17 01:07 (Colace) 100 mg DAILY PO 05/02/17 09:00 05/03/17 08:19 (KlonoPIN) 1 mg TID PO 05/02/17 09:00 05/03/17 08:19 A/P Assessment and Plan 61-year-old male brought in here by because of Acute Encephalopathy/Confusion: patient's reportedly called 911 for acute confusion, per EMS patient found lying in his bed naked. History of underlying dementia and undergoing outpatient work up for intermittent confusion. Patient currently AAOx4. UA, CMP, CBC, TSH, Vit B12, folate -all normal CXR images reviewed, no acute findings Head CT images reviewed, no acute findings or concern for NPH Monitor neuro checks Continue home medications Consult PT, no PT needed at discharge Case management to assist with discharge planning History of diabetes type 2. States that took him off the diabetic medications. +glucosuria, BG on chemistry normal check hemoglobin a1C Blood glucose all < 130 since arrival. History of glaucoma. Continue eyedrops. History of BPH. Continue Flomax. UA negative CM consulted for DC planning Discharge Planning Case management to assist with discharge planning. The patient is medically stable for discharge. Bouchra Craig PA-C May 03, 2017 10:37 am
[2017-05-03] MEDS ORDERED: CLON1TAB PO (10:39)
[2017-05-03 15:25] VITALS: BP 108/72; PULSE 78; RESP 16; TEMP 98; O2SAT 98
[2017-05-03 16:36] LABS: HEMOGLOBIN A1a 0.8 %; HEMOGLOBIN Ao 84.7 %; HEMOGLOBIN LA1C 2.2 %; HEMOGLOBIN P3 3.8 %
[2017-05-03 19:24] VITALS: BP 137/72; PULSE 81; RESP 18; TEMP 98.5; O2SAT 95
[2017-05-03] MEDS: TAMSULOSIN HCL 0.4 MG CAP PO SCH (20:10)
[2017-05-03] MEDS: LATANOPROST 0.005% OPHT SOLN 2.5 ML BTL EACH EYE SCH (20:10)
[2017-05-03] MEDS: GABAPENTIN 300 MG CAP PO SCH (20:10)
[2017-05-04 00:26] VITALS: BP 104/64; PULSE 74; RESP 18; TEMP 98.2; O2SAT 98
[2017-05-04 04:19] VITALS: BP 104/71; PULSE 78; RESP 16; TEMP 97.4; O2SAT 93
--- NOTE | 2017-05-04 08:56 | HHI.PR ---
Subjective Remarks Follow up for confusion. The patient is awake, alert, oriented x4. He denies any medical complaints. Eating well. Having normal BMs. He states he wants to go home. He states he doesn't want to go to any fci or rehab because he already has a home. He understands his might not want him there however he states he can take care of himself. Objective Vitals Vital Signs Date Time Temp Pulse Resp B/P Pulse Ox O2 Delivery O2 Flow Rate FiO2 05/04/17 04:19 97.4 78 16 104/71 93 05/04/17 00:26 98.2 74 18 104/64 98 05/03/17 19:24 98.5 81 18 137/72 95 05/03/17 15:25 98.0 78 16 108/72 98 I/O 05/03/17 05/03/17 05/03/17 05/04/17 05/04/17 05/04/17 07:00 15:00 23:00 07:00 15:00 23:00 Intake Total 360 ml Balance 360 ml Intake Oral 360 ml Result Diagram: 05/01/17 1355 05/01/17 1355 Imaging Last Impressions Head CT 05/01/17 1346 Signed Impressions: Service Date/Time: Monday, May 01, 2017 14:36 - CONCLUSION: 1. No acute intracranial abnormality. Kody Jackson MD Chest X-Ray 05/01/176 Signed Impressions: Service Date/Time: Monday, May 01, 2017 13:44 - CONCLUSION: No acute cardiopulmonary abnormality is identified. Akira De Leon MD Objective Remarks GENERAL: Well-nourished, well-developed male patient in [facility]. SKIN: Warm and dry. No rash. HEENT: Normocephalic. Atraumatic. Pupils equal and round. Mucous membranes pink and moist. NECK: Supple. Trachea midline. CARDIOVASCULAR: Regular rate and rhythm. S1, S2 noted. 2/6 systolic murmur noted. RESPIRATORY: No accessory muscle use. Clear to auscultation. Breath sounds equal bilaterally. GASTROINTESTINAL: Abdomen soft, non-tender, nondistended. Normoactive bowel sounds x4. MUSCULOSKELETAL: No obvious deformities. Extremities without clubbing, cyanosis , or edema. NEUROLOGICAL: Awake and alert. No obvious cranial nerve deficits. Motor grossly within normal limits. 5/5 muscle strength in bilateral upper and lower extremities. Normal speech. PSYCHIATRIC: Appropriate mood and affect; insight and judgment normal. Medications and IVs Current Medications Medications (Trade) Dose Ordered Sig/Fredrick Route Start Time Stop Time Status Last Admin (NS Flush) 2 ml UNSCH PRN IV FLUSH 05/01/17 14:00 (Ecotrin Ec) 81 mg DAILY PO 05/02/17 09:00 05/03/17 08:19 (Flexeril) 10 mg BID PO 05/01/17 21:00 05/03/17 20:10 (Benadryl) 25 mg HS PRN PO 05/01/17 18:45 05/03/17 20:10 (Neurontin) 600 mg HS PO 05/01/17 21:00 05/03/17 20:10 (Haldol) 1 mg BID PO 05/01/17 21:00 05/03/17 20:10 (Xalatan 0.005% Opth Soln) 1 drop HS EACH EYE 05/01/17 21:00 05/03/17 20:10 (Paxil) 40 mg DAILY PO 05/02/17 09:00 05/03/17 08:19 (Mysoline) 50 mg BID PO 05/01/17 21:00 05/03/17 21:00 (Flomax) 0.4 mg HS PO 05/01/17 21:00 05/03/17 20:10 (Timoptic 0.5% Opth Soln) 1 drop BID EACH EYE 05/01/17 21:00 05/03/17 20:09 (Ambien) 10 mg HS PRN PO 05/01/17 18:45 05/03/17 20:10 (Colace) 100 mg DAILY PO 05/02/17 09:00 05/03/17 08:19 (KlonoPIN) 1 mg TID PO 05/02/17 09:00 05/03/17 17:07 A/P Assessment and Plan 61-year-old male brought in here by for reported confusion Acute Encephalopathy/Confusion: patient's reportedly called 911 for acute confusion, per EMS patient found lying in his bed naked. History of underlying dementia and undergoing outpatient work up for intermittent confusion. Patient currently AAOx4. Of note, case management asked if psych eval is necessary for questionable report of homicidal ideations towards the . Patient has already undergone Psych Screen done in the ED, no Pollard Act placed at that time. The patient adamantly denies any homicidal ideations, he has been pleasant , calm, and cooperative throughout admission. UA, CMP, CBC, TSH, Vit B12, folate -all normal CXR images reviewed, no acute findings Head CT images reviewed, no acute findings or concern for NPH Monitor neuro checks Continue home medications Consult PT, no PT needed at discharge Patient AAOx4, encephalopathy resolved, suspect underlying dementia Case management and DCF to assist with discharge planning History of diabetes type 2. States that took him off the diabetic medications. +glucosuria, BG on chemistry normal check hemoglobin a1C Blood glucose all < 130 since arrival. History of glaucoma. Continue eyedrops. History of BPH. Continue Flomax. UA negative CM consulted for DC planning Discharge Planning Case management to assist with discharge planning. The patient is medically stable for discharge. Bouchra Craig PA-C May 04, 2017 08:56
[2017-05-04] MEDS: HALOPERIDOL 1 MG TAB PO SCH (09:17)
[2017-05-04] MEDS: ASPIRIN EC 81 MG TABEC PO SCH (09:17)
[2017-05-04] MEDS: CYCLOBENZAPRINE HCL 10 MG TAB PO SCH (09:17)
[2017-05-04] MEDS: PARoxetine HCL 20 MG TAB PO SCH (09:17)
[2017-05-04] MEDS: clonazePAM 1 MG TAB PO SCH ×2 (09:17→13:48)
[2017-05-04] MEDS: PRIMIDONE 50 MG TAB PO SCH (09:17)
[2017-05-04] MEDS: DOCUSATE SODIUM 100 MG CAP PO SCH (09:17)
[2017-05-04] MEDS: TIMOLOL MALEATE 0.5% OPHT SOLN 5 ML BTL EACH EYE SCH (09:18)
--- NOTE | 2017-05-04 18:12 | HHI.DS ---
Discharge Summary Admission Date May 01, 2017 at 6:13 pm Discharge Date: May 04, 2017 Admitting Diagnosis Confusion; history of dementia; refusing patient return home (1) Confusion ICD Code: R41.0 Diagnosis: Principal (2) Diabetes mellitus with hyperglycemia ICD Code: E11.65 Diagnosis: Secondary Procedures None. Brief History - From Admission Patient is a 61-year-old male with history of dementia TIA hypertension who was brought in by called EMS apparently because claimed that the patient was walking around naked in the house. Patient was brought in here and was evaluated by ER physician. Was seen by 6 site screen. Patient currently on exam is very cooperative A and O 3. He states that the he lives with his pretty much independent in all ADLs. He states that he had a "weird day and I fell off the bed and hit my head on the wall. Patient states that he woke up later feeling unsteady on his feet. He was evaluated here in the ER labs head CT negative. Vital signs stable. Patient was able to give the entire history for for me. On review of ER discussion when the patient was cleared to be discharged and when they called his . refused to take him back and states that "he is too much for me to take care of". Patient admitted overnight for further evaluation of disposition. Patient currently is very pleasant cooperative denies any pain. The much in ambulate independently. Continent of urine and stools. CBC/BMP: 05/01/17 1355 05/01/17 1355 Significant Findings Laboratory Tests Test 05/02/17 10:35 Hemoglobin A1c 6.2 % (4.3-6.0) Imaging Last Impressions Head CT 05/01/17 1346 Signed Impressions: Service Date/Time: Monday, May 01, 2017 14:36 - CONCLUSION: 1. No acute intracranial abnormality. Kody Jackson MD Chest X-Ray 05/01/17 1346 Signed Impressions: Service Date/Time: Monday, May 01, 2017 13:44 - CONCLUSION: No acute cardiopulmonary abnormality is identified. Akira De Leon MD PE at Discharge GENERAL: Well-nourished, well-developed male patient in NAD. SKIN: Warm and dry. No rash. HEENT: Normocephalic. Atraumatic. Pupils equal and round. Mucous membranes pink and moist. NECK: Supple. Trachea midline. CARDIOVASCULAR: Regular rate and rhythm. S1, S2 noted. 2/6 systolic murmur noted. RESPIRATORY: No accessory muscle use. Clear to auscultation. Breath sounds equal bilaterally. GASTROINTESTINAL: Abdomen soft, non-tender, nondistended. Normoactive bowel sounds x4. MUSCULOSKELETAL: No obvious deformities. Extremities without clubbing, cyanosis , or edema. NEUROLOGICAL: Awake and alert. No obvious cranial nerve deficits. Motor grossly within normal limits. 5/5 muscle strength in bilateral upper and lower extremities. Normal speech. PSYCHIATRIC: Appropriate mood and affect; insight and judgment normal. Hospital Course 61-year-old male brought in here by for reported confusion Acute Encephalopathy/Confusion: patient's reportedly called 911 for acute confusion, per EMS patient found lying in his bed naked. History of underlying dementia and undergoing outpatient work up for intermittent confusion. Patient currently AAOx4. Of note, case management asked if psych eval is necessary for questionable report of homicidal ideations towards the . Patient has already undergone Psych Screen done in the ED, no Pollard Act placed at that time. The patient adamantly denies any homicidal ideations, he has been pleasant , calm, and cooperative throughout admission. UA, CMP, CBC, TSH, Vit B12, folate -all normal CXR images reviewed, no acute findings Head CT images reviewed, no acute findings or concern for NPH Monitor neuro checks Continue home medications Consult PT, no PT needed at discharge Patient AAOx4, encephalopathy resolved, suspect underlying dementia Case management and DCF to assist with discharge planning Per correctional counselor/case manager, patient is safe to return to his home with his History of diabetes type 2. States that took him off the diabetic medications. +glucosuria, BG on chemistry normal hemoglobin a1C 6.2 Blood glucose all < 130 since arrival. discontinue medications for now, instructed to follow up with PCP for repeat HgbA1c in 3 months History of glaucoma. Continue eyedrops. History of BPH. Continue Flomax. UA negative CM consulted for DC planning, according to correctional counselor/case manager, the patient is safe for discharge to his home. CM has arranged for transportation. Pt Condition on Discharge: Stable Discharge Disposition: Discharge Home Discharge Time: <= 30 minutes Discharge Instructions DIET: Follow Instructions for: Heart Healthy Diet Activities you can perform: Regular-No Restrictions Follow up Referrals: PCP Follow-up - 1 Week with Courtney Perez MD Continued Medications: Aspirin DR (Aspir-81) 81 Mg Tabdr 81 MG DAILY Clonazepam (Clonazepam) 1 Mg Tab 1 MG PO TID takes 1.5 tabs tid Anxiety #90 Ref 0 TAB Cyclobenzaprine (Flexeril) 10 Mg Tab 10 MG PO BID Muscle Spasm #90 Ref 0 TAB Diphenhydramine (Diphenhydramine) 25 Mg Cap 25 MG PO HS PRN INSOMNIA Ref 0 CAP Docusate Sodium (Stool Softener) 100 Mg Tab 100 MG PO DAILY #30 Ref 3 TAB Gabapentin (Gabapentin) 600 Mg Tab 600 MG PO HS #30 Ref 3 TAB Haloperidol (Haloperidol) 1 Mg Tab 1 MG PO BID Ref 0 TAB Latanoprost Opth Drops (Latanoprost Opth Drops) 0.005% Drops 1 DROP EACH EYE HS Refrigerate until opened. Glaucoma #2.5 Ref 1 ML Paroxetine (Paroxetine) 40 Mg Tab 40 MG PO BID #30 Ref 3 TAB Primidone (Primidone) 50 Mg Tab 50 MG PO BID Control Seizures #60 Ref 3 TAB Tamsulosin (Tamsulosin) 0.4 Mg Cap 0.4 MG PO HS Manage Prostate Problems #30 Ref 0 CAP Timolol Opth Drops (Timolol Opth Drops) 0.5 % Soln 1 APPLIC EACH EYE BID #1 Ref 1 DROP Zolpidem (Zolpidem) 10 Mg Tab 10 MG PO HS PRN INSOMNIA Ref 0 TAB Discontinued Medications: Glimepiride (Glimepiride) 1 Mg Tab 1 MG PO BID Take with breakfast or first main meal Blood Sugar Management #30 Ref 3 TAB Bouchra Craig PA-C May 04, 2017 6:12 pm
== END 2017-05-04 15:46 | disposition home or self-care (01) ==
LOC: NEPC 13:31 → NEDH 18:13 → NEPHCDU 19:59
PROVIDERS: ADMIT Hospitalist; ATTEND Hospitalist
DX: G93.40 Encephalopathy, unspecified (principal); I10 Essential (primary) hypertension; E11.65 Type 2 diabetes mellitus with hyperglycemia; E78.00 Pure hypercholesterolemia, unspecified; H40.9 Unspecified glaucoma; N40.0 Benign prostatic hyperplasia without lower urinary tract symptoms; F03.90 Unspecified dementia, unspecified severity, without behavioral disturbance, psychotic disturbance, mood disturbance, and anxiety; Z86.73 Personal history of transient ischemic attack (TIA), and cerebral infarction without residual deficits; Z79.82 Long term (current) use of aspirin; Z88.5 Allergy status to narcotic agent; Z79.84 Long term (current) use of oral hypoglycemic drugs
CPT/HCPCS: 70450; 71010; 80053; 81001; 82140; 82550; 82607; 82746; 82948; 83036; 84443; 85025; 85610; 85730; 93005; 97110; 97116; 97161; 99285; G0378; G8987; G8988

== ENCOUNTER 2017-05-25 07:18 | Inpatient (IN) | payer SELFPAY ==
[~2017-05-25] VITALS: Ht 177.8 cm; Wt 80.5 kg
[~2017-05-25 07:18] MED LIST changes: -CRAN450T; -DIPH1TAB36; -GLIM1TAB PO; -METF500T PO; -PHEN-426 PO; -PRED-503 PO
[2017-05-25 07:23] VITALS: BP 149/92; PULSE 94; RESP 18; TEMP 97.5; O2SAT 97
[2017-05-25 07:50] VITALS: BP 151/86; PULSE 88; RESP 15; O2SAT 97
[2017-05-25 08:18] LABS: AUTOMATED NEUTROPHIL # 3.3 TH/MM3 (1.8-7.7); BASOPHIL % 0.6 % (0.0-2.0); EOSINOPHIL # 0.6 TH/MM3 (0-0.4); EOSINOPHIL % 9.8 % (0.0-4.0); HEMATOCRIT 41.4 % (39.0-51.0); HEMO FLAGS DIFF FINAL; LYMPH % 26.1 % (9.0-44.0); LYMPHOCYTE # 1.7 TH/MM3 (1.0-4.8); MEAN CORPUSCULAR HEMOGLOBIN 27.4 PG (27.0-34.0); MEAN CORPUSCULAR HGB CONC 32.2 % (32.0-36.0); MONO % 11.8 % (0.0-8.0); NEUT % 51.7 % (16.0-70.0); PLATELET COUNT 260 TH/MM3 (150-450); RED BLOOD COUNT 4.86 MIL/MM3 (4.50-5.90); WHITE BLOOD COUNT 6.4 TH/MM3 (4.0-11.0)
[2017-05-25 08:26] LABS: BLOOD, URINE NEG (NEG); COMMENT (UR) CULT NOT INDICATED; CULTURE IF INDICATED CULT NOT INDICATED; GLUCOSE,URINE NEG (NEG); KETONE, URINE 10 mg/dL (NEG); MUCUS URINE FEW /lpf (OCC); NITRITE,URINE NEG (NEG); PH, URINE 5.5 (5.0-8.5); URINE COLOR YELLOW (YELLW/STRAW)
[2017-05-25 08:30] LABS: AMPHETAMINE, URINE NEG (NEG); BARBITURATES, URINE POS (NEG); COCAINE, URINE NEG (NEG)
[2017-05-25 08:32] LABS: ALT (GPT) 23 U/L (12-78); ANION GAP 7 MEQ/L (5-15); AST (GOT) 21 U/L (15-37); BLOOD UREA NITROGEN 12 MG/DL (7-18); CHLORIDE 106 MEQ/L (98-107); GLOMERULAR FILTRATION RATE 77 ML/MIN (>89); POTASSIUM 3.6 MEQ/L (3.5-5.1); SODIUM (NA) 143 MEQ/L (136-145)
[2017-05-25 08:35] LABS: ALKALINE PHOSPHATASE 106 U/L (45-117); TOTAL BILIRUBIN ADULT 0.7 MG/DL (0.2-1.0)
--- NOTE | 2017-05-25 08:53 | PD ---
HPI Chief Complaint: Psychiatric Symptoms Time Seen by Provider: 08:43 Travel History International Travel<30 days: No Contact w/Intl Traveler<30days: No Traveled to known affect area: No History of Present Illness HPI This patient has recently gone through a divorce and is having significant insomnia problems. He says he hasn't slept well for the last 5 days. He tried Ativan which didn't help. He denies feeling suicidal. Symptoms are of moderate severity. Denies pain or vomiting or diarrhea or fever. Complains of general malaise. PFSH Past Medical History Hx Anticoagulant Therapy: No Arthritis: No Asthma: No Autoimmune Disease: No Blood Disorders: No Anxiety: Yes Depression: No Heart Rhythm Problems: No Cancer: No Cardiovascular Problems: Yes (MURMUR) High Cholesterol: Yes Chemotherapy: No Chest Pain: No Congestive Heart Failure: No COPD: No Cerebrovascular Accident: Yes ("A COUPLE SMALL ONES") Diabetes: Yes Patient Takes Glucophage: No Diminished Hearing: No Endocrine: Yes Gastrointestinal Disorders: Yes GERD: No Genitourinary: Yes (BPH) Headaches: Yes Hiatal Hernia: No Immune Disorder: Yes Kidney Stones: Yes Musculoskeletal: Yes (Back & neck pain) Neurologic: No Psychiatric: Yes Reproductive: No Respiratory: Yes (Bronchitis) Immunizations Current: No Migraines: No Renal Failure: No Seizures: No Sleep Apnea: No Ulcer: No Past Surgical History Abdominal Surgery: No Cardiac Surgery: No Ear Surgery: No Endocrine Surgery: No Eye Surgery: No Genitourinary Surgery: No Gynecologic Surgery: No Oral Surgery: No Pacemaker: No Thoracic Surgery: No Tonsillectomy: Yes 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 Primidone 50 Mg Tab 50 Mg PO BID Gabapentin 600 Mg Tab 600 Mg PO HS Paroxetine (Paroxetine HCl) 40 Mg Tab 40 Mg PO BID Stool Softener (Docusate Sodium) 100 Mg Tab 100 Mg PO DAILY Reported Tamsulosin (Tamsulosin HCl) 0.4 Mg Cap 0.4 Mg PO HS Diphenhydramine (Diphenhydramine HCl) 25 Mg Cap 25 Mg PO HS PRN Haloperidol 1 Mg Tab 1 Mg PO BID Flexeril (Cyclobenzaprine HCl) 10 Mg Tab 10 Mg PO BID Zolpidem (Zolpidem Tartrate) 10 Mg Tab 10 Mg PO HS PRN Aspir-81 (Aspirin) 81 Mg Tabdr 81 Mg DAILY Review of Systems General / Constitutional: No: Fever Eyes: No: Visual changes HENT: No: Headaches Cardiovascular: No: Chest Pain or Discomfort Respiratory: No: Shortness of Breath Gastrointestinal: No: Abdominal Pain Genitourinary: No: Dysuria Musculoskeletal: Positive: Weakness, No: Pain Skin: No Rash Neurologic: Positive: Weakness Psychiatric: Positive: Anxiety, Depression, No: Suicidal Ideations Endocrine: No: Polydipsia Hematologic/Lymphatic: No: Easy Bruising Physical Exam Narrative GENERAL: Well-nourished, well-developed patient in no apparent distress. SKIN: Focused skin assessment reveals no rash and nodules. Skin is Warm and dry. HEAD: Atraumatic. Normocephalic. EYES: Pupils equal and round. No scleral icterus. No injection or drainage. ENT: No nasal bleeding or discharge. Mucous membranes pink and moist. NECK: Trachea midline. No JVD. CARDIOVASCULAR: Regular rate and rhythm. No murmur appreciated. RESPIRATORY: No accessory muscle use. Clear to auscultation. Breath sounds equal bilaterally. GASTROINTESTINAL: Abdomen soft, non-tender, nondistended. Hepatic and splenic margins not palpable. MUSCULOSKELETAL: No obvious deformities. No clubbing. No cyanosis. No edema. NEUROLOGICAL: Awake and alert. No obvious cranial nerve deficits. Motor grossly within normal limits. Normal speech. PSYCHIATRIC: Depressed mood and flat affect; insight and judgment a bit reduced . Data Data Last Documented VS Vital Signs Date Time Temp Pulse Resp B/P Pulse Ox O2 Delivery O2 Flow Rate FiO2 05/25/17 07:50 88 15 151/86 97 Room Air 05/25/17 07:23 97.5 Orders Complete Blood Count With Diff (05/25/17 07:38) Comprehensive Metabolic Panel (05/25/17 07:38) Urinalysis - C+S If Indicated (05/25/17 07:38) Psych Screen (05/25/17 07:38) Drug Screen, Random Urine (05/25/17 07:38) Alcohol (Ethanol) (05/25/17 07:38) Electrocardiogram (05/25/17 07:49) Labs Laboratory Tests Test 05/25/17 05/25/17 07:55 08:00 White Blood Count 6.4 TH/MM3 Red Blood Count 4.86 MIL/MM3 Hemoglobin 13.3 GM/DL Hematocrit 41.4 % Mean Corpuscular Volume 85.0 FL Mean Corpuscular Hemoglobin 27.4 PG Mean Corpuscular Hemoglobin 32.2 % Concent Red Cell Distribution Width 14.0 % Platelet Count 260 TH/MM3 Mean Platelet Volume 8.8 FL Neutrophils (%) (Auto) 51.7 % Lymphocytes (%) (Auto) 26.1 % Monocytes (%) (Auto) 11.8 % Eosinophils (%) (Auto) 9.8 % Basophils (%) (Auto) 0.6 % Neutrophils # (Auto) 3.3 TH/MM3 Lymphocytes # (Auto) 1.7 TH/MM3 Monocytes # (Auto) 0.8 TH/MM3 Eosinophils # (Auto) 0.6 TH/MM3 Basophils # (Auto) 0.0 TH/MM3 CBC Comment DIFF FINAL Differential Comment Sodium Level 143 MEQ/L Potassium Level 3.6 MEQ/L Chloride Level 106 MEQ/L Carbon Dioxide Level 30.0 MEQ/L Anion Gap 7 MEQ/L Blood Urea Nitrogen 12 MG/DL Creatinine 0.99 MG/DL Estimat Glomerular Filtration 77 ML/MIN Rate Random Glucose 102 MG/DL Calcium Level 9.7 MG/DL Total Bilirubin 0.7 MG/DL Aspartate Amino Transf 21 U/L (AST/SGOT) Alanine Aminotransferase 23 U/L (ALT/SGPT) Alkaline Phosphatase 106 U/L Total Protein 6.8 GM/DL Albumin 3.6 GM/DL Ethyl Alcohol Level LESS THAN 3 MG/DL Urine Color YELLOW Urine Turbidity CLEAR Urine pH 5.5 Urine Specific [place] 1.021 Urine Protein TRACE mg/dL Urine Glucose (UA) NEG mg/dL Urine Ketones 10 mg/dL Urine Occult Blood NEG Urine Nitrite NEG Urine Bilirubin NEG Urine Urobilinogen LESS THAN 2.0 MG/DL Urine Leukocyte Esterase NEG Urine RBC LESS THAN 1 /hpf Urine WBC 1 /hpf Urine Mucus FEW /lpf Microscopic Urinalysis Comment CULT NOT INDICATED Urine Opiates Screen NEG Urine Barbiturates Screen POS Urine Amphetamines Screen NEG Urine Benzodiazepines Screen POS Urine Cocaine Screen NEG Urine Cannabinoids Screen NEG MDM Medical Decision Making Medical Screen Exam Complete: Yes Emergency Medical Condition: Yes Medical Record Reviewed: Yes Differential Diagnosis Insomnia, depression, adjustment disorder Narrative Course I have reviewed the patient's electronic medical record. Patient was admitted last month for altered mental status IV placed CBC normal Metabolic profile normal Alcohol level is negative Urine drug screen is positive for benzodiazepine and barbiturates I reviewed his EKG which shows sinus rhythm and no ectopy or ST elevation Medical workup is negative. He is to follow up his primary care and/or psychiatric provider; he is not suicidal does not require emergent psychiatric screening Diagnosis Primary Impression: Insomnia Qualified Code: G47.00 - Insomnia, unspecified type Additional Impressions: History of dementia Malaise and fatigue Additional Instructions: The patient was advised to follow up with their physician and return if they worsen. Med/Other Pt SpecificInfo: Other Disposition: 01 DISCHARGE HOME Condition: Stable José Miguel Navarrete MD May 25, 2017 08:53
[2017-05-25 10:50] VITALS: BP 130/80; PULSE 89; RESP 18; O2SAT 98
[2017-05-25 13:55] VITALS: BP 124/76; PULSE 85; RESP 18; O2SAT 99
--- NOTE | 2017-05-25 17:25 | PD ---
History of Present Illness Chief Complaint: Psychiatric Symptoms Time Seen by Provider: 17:00 Travel History International Travel<30 Days: No Contact w/Intl Traveler<30days: No Known affected area: No Legal Status Legal Status: Voluntary History of Present Illness: History of Present Illness 61 year old male with psychiatric history of anxiety, possible dementia who presents on a voluntary status for evaluation . Main complaint is of not having slept x 5 days despite taking prescribe Ativan, not eating and having episodes of vomiting. He has been sleeping in his van for the past few weeks after he was from his after a 15 year marriage. He was medically cleared and moved to [facility] for further evaluation. EMR is reviewed. Patient was evaluated on February 29, 2016 after he presented to Ed with complaints of not sleeping x 3 days and having nausea and vomiting. He was worked up for possible benzo withdrawal. He was seen and evaluated in Ed in May 01, 2017 for confusion when he was found walking around the house naked. . At the time his was refusing to have him come back home. Current toxicology is positive for barbiturates and benzos. Patient is seen in [facility]. He is alert and oriented male who appears older than stated age. he reports feeling " the worse I have ever felt" due to his recent divorces. He endorses that he has not slept in 5 days "except for 10 minutes last night". He denies feeling suicidal although admits that he had thoughts 3 days ago of ending his life by shooting himself. He does not own a gun at this time. He denies having a psychiatric history but has been receiving medications from [facility]. Review of recent medications include Haldol, Paxil, Klonopin, Ativan, Ambien. PFSH Past Medical History Hx Anticoagulant Therapy: No Arthritis: No Asthma: No Autoimmune Disease: No Blood Disorders: No Anxiety: Yes Depression: No Heart Rhythm Problems: No Cancer: No Cardiovascular Problems: Yes (MURMUR) High Cholesterol: Yes Chemotherapy: No Chest Pain: No Congestive Heart Failure: No COPD: No Cerebrovascular Accident: Yes ("A COUPLE SMALL ONES") Diabetes: Yes Patient Takes Glucophage: No Diminished Hearing: No Endocrine: Yes Gastrointestinal Disorders: Yes GERD: No Genitourinary: Yes (BPH) Headaches: Yes Hiatal Hernia: No Immune Disorder: Yes Kidney Stones: Yes Musculoskeletal: Yes (Back & neck pain) Neurologic: No Psychiatric: Yes Reproductive: No Respiratory: Yes (Bronchitis) Immunizations Current: No Migraines: No Renal Failure: No Seizures: No Sleep Apnea: No Ulcer: No Past Surgical History Abdominal Surgery: No Cardiac Surgery: No Ear Surgery: No Endocrine Surgery: No Eye Surgery: No Genitourinary Surgery: No Gynecologic Surgery: No Oral Surgery: No Pacemaker: No Thoracic Surgery: No Tonsillectomy: Yes 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 'I do get pills from [facility]. History of Inpatient Treatment: No Guns or firearms in home: No Social History , retired. Living in his van. Hx Alcohol Use: No Hx Tobacco Use: No Hx Substance Use: No (Quit drinking in 1984) Substance Use Type: Alcohol, Benzos (Valium,Xanax), Other Hx of Substance Use Treatment: No Family Psychiatric History None reported Allergies-Medications (Allergen,Severity, Reaction): Coded Allergies: Codeine (Verified Allergy, Unknown, 05/25/17) Reported Meds & Prescriptions Reported Meds & Active Scripts Active Clonazepam 1 Mg Tab 1 Mg PO TID takes 1.5 tabs tid Timolol Opth Drops 0.5 % Soln 1 Applic EACH EYE BID Latanoprost Opth Drops (Latanoprost) 0.005% Drops 1 Drop EACH EYE HS Refrigerate until opened. Primidone 50 Mg Tab 50 Mg PO BID Gabapentin 600 Mg Tab 600 Mg PO HS Paroxetine (Paroxetine HCl) 40 Mg Tab 40 Mg PO BID Stool Softener (Docusate Sodium) 100 Mg Tab 100 Mg PO DAILY Reported Tamsulosin (Tamsulosin HCl) 0.4 Mg Cap 0.4 Mg PO HS Diphenhydramine (Diphenhydramine HCl) 25 Mg Cap 25 Mg PO HS PRN Haloperidol 1 Mg Tab 1 Mg PO BID Flexeril (Cyclobenzaprine HCl) 10 Mg Tab 10 Mg PO BID Zolpidem (Zolpidem Tartrate) 10 Mg Tab 10 Mg PO HS PRN Aspir-81 (Aspirin) 81 Mg Tabdr 81 Mg DAILY Review of Systems Except as stated in HPI: all other systems reviewed are Neg Constitutional: COMPLAINS OF: Chills Gastrointestinal: COMPLAINS OF: Nausea, Vomiting Psychiatric: COMPLAINS OF: Anxiety, Depression, Suicidal Ideation Exam Alert: Yes [place]: Person (ox3) Mood: Depressed Affect: Restricted Speech: Clear, Logical Eye Contact: Normal Memory Intact: Comment (not formally tetsed.) Hallucinations: Other (denies any) Delusions: No Suicidal: Ideation (To shoot himself) Homicidal: Ideation (negative) Insight/Judgement Fair. Poor. MDM Medical Decision Making Medical Record Reviewed: Yes Assessment/Plan 61 year old male with history of anxiety who presents on a voluntary status with reports of not having slept in 5 days. Patient is not a good historian. He reports that he took Ativan with no relief. He has had previous visits to ed for similar complaint as well as for evaluation of confusion. Patient has not been taking care of himself and may have been misusing his current prescribed medication. At this time he will be admitted for further observation, for medication adjustment as well as for safety. Orders Complete Blood Count With Diff (05/25/17 07:38) Comprehensive Metabolic Panel (05/25/17 07:38) Urinalysis - C+S If Indicated (05/25/17 07:38) Psych Screen (05/25/17 07:38) Drug Screen, Random Urine (05/25/17 07:38) Alcohol (Ethanol) (05/25/17 07:38) Electrocardiogram (05/25/17 07:49) Diet Regular Basic (05/25/17 Lunch) Diet Regular Basic (05/25/17 Dinner) Results Vital Signs Date Time Temp Pulse Resp B/P Pulse Ox O2 Delivery O2 Flow Rate FiO2 05/25/17 13:55 85 18 124/76 99 Room Air 05/25/17 10:50 89 18 130/80 98 Room Air 05/25/17 07:50 88 15 151/86 97 Room Air 05/25/17 07:23 97.5 94 18 149/92 97 Room Air Laboratory Tests Test 05/25/17 05/25/17 07:55 08:00 White Blood Count 6.4 Red Blood Count 4.86 Hemoglobin 13.3 Hematocrit 41.4 Mean Corpuscular Volume 85.0 Mean Corpuscular Hemoglobin 27.4 Mean Corpuscular Hemoglobin 32.2 Concent Red Cell Distribution Width 14.0 Platelet Count 260 Mean Platelet Volume 8.8 Neutrophils (%) (Auto) 51.7 Lymphocytes (%) (Auto) 26.1 Monocytes (%) (Auto) 11.8 Eosinophils (%) (Auto) 9.8 Basophils (%) (Auto) 0.6 Neutrophils # (Auto) 3.3 Lymphocytes # (Auto) 1.7 Monocytes # (Auto) 0.8 Eosinophils # (Auto) 0.6 Basophils # (Auto) 0.0 CBC Comment DIFF FINAL Differential Comment Sodium Level 143 Potassium Level 3.6 Chloride Level 106 Carbon Dioxide Level 30.0 Anion Gap 7 Blood Urea Nitrogen 12 Creatinine 0.99 Estimat Glomerular Filtration 77 Rate Random Glucose 102 Calcium Level 9.7 Total Bilirubin 0.7 Aspartate Amino Transf 21 (AST/SGOT) Alanine Aminotransferase 23 (ALT/SGPT) Alkaline Phosphatase 106 Total Protein 6.8 Albumin 3.6 Ethyl Alcohol Level LESS THAN 3 Urine Color YELLOW Urine Turbidity CLEAR Urine pH 5.5 Urine Specific [place] 1.021 Urine Protein TRACE Urine Glucose (UA) NEG Urine Ketones 10 Urine Occult Blood NEG Urine Nitrite NEG Urine Bilirubin NEG Urine Urobilinogen LESS THAN 2.0 Urine Leukocyte Esterase NEG Urine RBC LESS THAN 1 Urine WBC 1 Urine Mucus FEW Microscopic Urinalysis Comment CULT NOT INDICATED Urine Opiates Screen NEG Urine Barbiturates Screen POS Urine Amphetamines Screen NEG Urine Benzodiazepines Screen POS Urine Cocaine Screen NEG Urine Cannabinoids Screen NEG Diagnosis Primary Impression: Insomnia Additional Impressions: History of dementia Malaise and fatigue Adjustment disorder Admitting Information Admitting Physician Requests: Admit Departure Forms: Tests/Procedures Patient Instructions: General Instructions, Insomnia (ED) Additional Instructions: The patient was advised to follow up with their physician and return if they worsen. Disposition: 01 DISCHARGE HOME Condition: Stable Problem Qualifiers Primary Impression: Insomnia Qualified Code: G47.00 - Insomnia, unspecified type Additional Impressions: Adjustment disorder Qualified Code: F43.23 - Adjustment disorder with mixed anxiety and depressed mood Jailyn Jackson May 25, 2017 17:25
[2017-05-25 17:43] VITALS: BP 139/87; PULSE 88; RESP 18; O2SAT 97
[2017-05-25] MEDS ORDERED: MAGNESIUM HYDROXIDE SUSP 30 ML CUP PO PRN (18:30)
[2017-05-25] MEDS ORDERED: ALUMINUM/MAGNESIUM/SIMETH 30 ML CUP PO PRN (18:30)
--- NOTE | 2017-05-25 18:57 | EKG ---
Date Performed: 05/25/2017 Time Performed: 07:51:52 PTAGE: 61 years EKG: Sinus rhythm Since previous tracing, no significant change noted NORMAL ECG PREVIOUS TRACING : 05/01/2017 14.24 DOCTOR: Pete Napier Interpretating Date/Time 05/25/2017 18:57:15
[2017-05-25] MEDS ORDERED: FLUMAZENIL 0.5 MG/5 ML VIAL IV PUSH PRN (19:30)
[2017-05-25] MEDS ORDERED: LORazepam 2 MG/ML VIAL IV PUSH PRN ×4 (19:30)
[2017-05-25 20:15] VITALS: BP 144/88; PULSE 86; RESP 18; TEMP 98.4; O2SAT 96
[2017-05-25] MEDS: LORazepam 2 MG TAB PO PRN (20:40)
[2017-05-25] MEDS: LORazepam 1 MG TAB PO PRN (22:50)
[2017-05-26] MEDS: ACETAMINOPHEN 325 MG TAB PO PRN (04:43)
[2017-05-26 07:03] VITALS: BP 137/83; PULSE 97; RESP 18; O2SAT 97
[2017-05-26 10:00] VITALS: BP 120/78; PULSE 82; RESP 16; TEMP 97.3; O2SAT 97
[2017-05-26 10:15] LABS: ANION GAP 8 MEQ/L (5-15); BICARBONATE 30.7 MEQ/L (21.0-32.0); BLOOD UREA NITROGEN 8 MG/DL (7-18); CHLORIDE 105 MEQ/L (98-107); GLOMERULAR FILTRATION RATE 87 ML/MIN (>89); POTASSIUM 3.6 MEQ/L (3.5-5.1); SODIUM (NA) 144 MEQ/L (136-145)
[2017-05-26 10:18] LABS: HDL CHOLESTEROL 31.6 MG/DL (40.0-60.0); LDL CHOLESTEROL 191 MG/DL (0-99)
[2017-05-26] MEDS: LORazepam 2 MG TAB PO PRN (12:02)
--- NOTE | 2017-05-26 13:05 | HHI.HP ---
Provisional Diagnosis Admission Date May 25, 2017 at 17:16 [place] I. 1. Adjustment disorder, unspecified Rule out component of adjustment insomnia [place] II. Deferred [place] V. GAF is 50 presently Certification of Person's Competence To Provide Express and Informed Consent I have personally examined Pablo Trimble , a person being served at [facility] on, May 26, 2017 13:05. Express and informed consent means consent voluntarily given in writing, by a competent person, after sufficient explanation and disclosure of the subject matter involved to enable the person to make a knowing and willful decision without any element of force, fraud, deceit, duress, or other form of constraint or coercion. This person is 18 years of age or older, is not now known to be incompetent to consent to treatment with a guardian advocate, and does not have a health care surrogate or proxy currently making medical treatment decisions. I have found this person to be one of the following: [x] Competent to provide express and informed consent, as defined above, for voluntary admission to this facility and is competent to provide express and informed consent for treatment. He/she has the consistent capacity to make well reasoned, willful, and knowing decisions concerning his or her medical or mental health treatment. The person fully and consistently understands the purpose of the admission for examination/placement and is fully capable of personally exercising all rights assured under [place] Incompetent to provide express and informed consent to voluntary admission, and this is incompetent to provide express and informed consent to treatment. The person must be transferred to involuntary status and a petition for a guardian advocate filed with the Circuit Court. [] Refusing to provide express and informed consent to voluntary admission but is competent to provide express and informed consent for treatment. The person must be discharged or transferred to involuntary status. Form shall be completed within 24 hours of a person's arrival at the receiving facility and filed in the clinical record of each person: 1. Admitted on a voluntary basis 2. Permitted to provide express and informed consent to his/her own treatment 3. Allowed to transfer from involuntary to voluntary status 4. Prior to permitting a person to consent to his or her own treatment after having been previously found incompetent to consent to treatment. History of Present Illness Capacity: Has Capacity HPI Mr. Trimble is a 61-year-old male with reported history of insomnia issues who presents on a voluntary basis. He complained in the ED of insomnia 5 days. He was seen by the psychiatric nurse practitioner in the emergency department and apparently described some previous thoughts of self-harm, although he was not suicidal at the time of her evaluation. Reviewing the electronic medical record, I see no prior psychiatric contact within our system. Patient seen and examined with nurse. Chart reviewed. Case discussed with nursing staff. On my examination today, the patient reports that his sole psychiatric issue is that he has not slept in 6 days. He says that he was recently hospitalized for medical issues and when he returned home he found out that his had filed for divorce. He adamantly denies any suicidal or homicidal ideation, intent or plan on direct questioning. He denies feeling particularly anxious. He denies any issues with mood disturbance, nor can I elicit any depressive or hypomanic/manic symptoms at this time. He denies any audiovisual hallucinations, and I can elicit no delusional beliefs. The remainder of the psychiatric ROS is negative. The patient wishes to remain on the unit to obtain assistance with getting a good night's sleep. Past psychiatric history: Patient endorses a history of trouble with insomnia. He reports that he has been prescribed Ambien and Klonopin for this in the past. He denies a history of outpatient psychiatric treatment. He denies a history of psychiatric admissions. He denies a history of suicide attempts. Family history: The patient denies a family history of mental illness, substance use disorder or suicide. Chemical dependency history: The patient denies any abuse of drugs or alcohol. He says that his last use of benzodiazepines was several weeks ago, but his urine toxicology was positive for benzodiazepines and barbiturates on presentation here. I have reviewed the [employer] controlled substances database report, and it appears that he was prescribed Ambien 10 mg #90 for a 90 day supply on 04/08/17 and also given Klonopin 1 mg, #405 for a 90 day supply on 01/28. Both of these were prescribed by a Dr. Ruby. Social history: The patient reports that he has recently found out that his is filing for divorce. The 2 have no children. His house is in his ' s name because he says that he used to clean up bullets from shooting ranges and was worried about the EPA suing him and taking his house, and so he decided several years ago to place the house and his 's name only. He believes that she is planning on keeping the house in the divorce. He does note that he has another place to stay. He has a GED. He previously served as a border patrolman but denies any other history. He has a history of a misdemeanor at age 17 but denies any other legal history. He denies any access to guns or firearms. No reported history of trauma. Review of Systems Except as stated in HPI: all other systems reviewed are Neg Past Psych History Psychological trauma history No reported trauma history Violence risk - others (6 mos) Lower imminent risk. Denies homicidal ideation. No known history of violence. No evidence of any mental illness process that would confer risk for violence. Violence risk - self (6 mos) Lower imminent risk. Denies suicidal ideation. Denies a history of suicide attempts in the past. Apparently made offhanded statement about having had thoughts about shooting himself to the ED nurse practitioner but denied access to guns then and denies access to guns now. He now says that these statements were more to convey his distress at his inability to sleep. There is no family history of suicide. He is experiencing a psychosocial stressor, namely divorce from his , but he appears to be bearing up under this stress well. Substance Abuse History Drugs/Alcohol past 12 months See above Past Family Social History Coded Allergies: Codeine (Verified Allergy, Unknown, 05/25/17) Past Medical History See electronic medical record Active Scripts Clonazepam 1 Mg Tab1 Mg PO TID #90 TAB Ref 0 takes 1.5 tabs tid Prov:Bouchra Craig PA-C 05/03/17 Timolol Opth Drops 0.5 % Soln1 Applic EACH EYE BID #1 DROP Ref 1 Prov:Courtney Perez MD 03/04/17 Latanoprost Opth Drops 0.005% Drops1 Drop EACH EYE HS #2.5 ML Ref 1 Refrigerate until opened. Prov:Courtney Perez MD 03/04/17 Primidone 50 Mg Tab50 Mg PO BID #60 TAB Ref 3 Prov:Courtney Perez MD 03/04/17 Gabapentin 600 Mg Xfr896 Mg PO HS #30 TAB Ref 3 Prov:Courtney Perez MD 03/04/17 Paroxetine 40 Mg Tab40 Mg PO BID #30 TAB Ref 3 Prov:Courtney Perez MD 03/04/17 Docusate Sodium (Stool Softener)100 Mg Inw777 Mg PO DAILY #30 TAB Ref 3 Prov:Courtney Perez MD 03/04/17 Reported Medications Tamsulosin 0.4 Mg Cap0.4 Mg PO HS #30 CAP Ref 0 03/18/17 Diphenhydramine 25 Mg Cap25 Mg PO HS PRN (INSOMNIA) Ref 0 03/04/17 Haloperidol 1 Mg Tab1 Mg PO BID Ref 0 09/14/16 Cyclobenzaprine (Flexeril)10 Mg Tab10 Mg PO BID #90 TAB Ref 0 09/14/16 Zolpidem 10 Mg Tab10 Mg PO HS PRN (INSOMNIA) Ref 0 09/14/[address] (Aspir-81)81 Mg Tabdr81 Mg DAILY 09/14/16 Current Medications Medications (Trade) Dose Ordered Sig/Fredrick Route Start Time Stop Time Status Last Admin (Tylenol) 650 mg Q4H PRN PO 05/25/17 18:30 05/26/17 04:43 (Milk Of Magnesia Liq) 30 ml DAILY PRN PO 05/25/17 18:30 (Mag-Al Plus Susp Liq) 30 ml Q6H PRN PO 05/25/17 18:30 05/26/17 12:02 (Ativan) 1 mg Q4H PRN PO 05/25/17 19:30 05/25/17 22:50 (Ativan Inj) 1 mg Q4H PRN IV PUSH 05/25/17 19:30 (Ativan) 2 mg Q2H PRN PO 05/25/17 19:30 05/26/17 12:02 (Ativan Inj) 2 mg Q2H PRN IV PUSH 05/25/17 19:30 (Ativan Inj) 2 mg Q1H PRN IV PUSH 05/25/17 19:30 (Ativan Inj) 2 mg Q15M PRN IV PUSH 05/25/17 19:30 (Romazicon Inj) 0.2 mg Q1M PRN IV PUSH 05/25/17 19:30 Family History See above Social History See above Patient's Strengths (min. 2) Attending to basic needs. Verbally fluent. Physical Exam Physical examination completed by ED provider. On my examination today, the patient appears to be well-nourished and well-developed and in no acute physical distress. He does have some mild palm sweating but there is otherwise no evidence of hand tremor, no diaphoresis, no mydriasis or other signs of GABAergic withdrawal. No other motoric abnormalities noted. Laboratories and vital signs reviewed: Vital Signs Vital Signs Date Time Temp Pulse Resp B/P Pulse Ox O2 Delivery O2 Flow Rate FiO2 05/26/17 10:00 97.3 82 16 120/78 97 05/25/17 17:43 Room Air I/O 05/25/17 05/25/17 05/26/17 08:00 16:00 00:00 Intake Total 360 ml Balance 360 ml Lab Results Item Value Date Time White Blood Count 6.4 TH/MM3 05/25/17 075 Hemoglobin 13.3 GM/DL 05/25/17 075 Platelet Count 260 TH/MM3 05/25/17 075 Sodium Level 144 MEQ/L 05/26/17 0818 Potassium Level 3.6 MEQ/L 05/26/17 0818 Chloride Level 105 MEQ/L 05/26/17 0818 Carbon Dioxide Level 30.7 MEQ/L 05/26/17 0818 Anion Gap 8 MEQ/L 05/26/17 0818 Creatinine 0.89 MG/DL 05/26/17 0818 Estimat Glomerular Filtration Rate 87 ML/MIN L 05/26/17 0818 Aspartate Amino Transf (AST/SGOT) 21 U/L 05/25/17 075 Alanine Aminotransferase (ALT/SGPT) 23 U/L 05/25/17 075 Alkaline Phosphatase 106 U/L 05/25/17 0755 Urine Barbiturates Screen POS H 05/25/17 0800 Urine Benzodiazepines Screen POS H 05/25/17 08 Ethyl Alcohol Level LESS THAN 3 MG/DL 05/25/17 075 Mental Status Examination Patient is in hospital gown. He is fairly well groomed. He is awake and alert and oriented 3. He is able to spell the word world forward and gives it backward as DLO and stops. His registration is 3 out of 3 in his recall is 3 out of 3 at 3 minutes. He is able to name 2 items and repeat a phrase. Motor exam as above. Speech is within normal limits for rate, tone and volume. Language and fund of knowledge seem average. Focus and concentration intact. Memory grossly intact on clinical exam. Mood reportedly stable and affect blunted. Thought process linear. No loosening of associations. No delusional material elicited. Denies audiovisual hallucinations. Denies suicidal or homicidal ideation, intent or plan on direct questioning. Insight and judgment are fair. Assessment & Plan Problem List: (1) Adjustment disorder ICD Code: F43.20 Assessment & Plan This is a 61-year-old male with psychiatric history as detailed above who presents on a voluntary basis complaining chiefly of insomnia. There was apparently some concern in the ED that he had recently experienced suicidal thoughts, although he denied suicidality to the psychiatric nurse practitioner and denies suicidal or homicidal ideation to me now. He says that his primary issue is to do with poor sleep. This appears to occur in isolation without any associated depressive or hypomanic/manic symptomatology. He is willing to remain on the unit to try to get a good night's sleep, and we will plan to admit the patient in service of this goal and also for a brief period of observation. Admit inpatient. Voluntary status. Trazodone 50 mg at bedtime, may repeat 1 in 60 minutes if needed. There is some concern for possible substance overuse and withdrawal, and I will continue CIWA scale with Ativan, adding seizure and fall precautions. I will continue the general medical medications. Vitals every shift. Counselor to see and obtain collateral if patient is willing. Disposition planning. Estimated length of stay: 2-3 days. Discharge Planning Home w/OP follow-up. Request HC Surrog/Guard Advoc?: No Problem Qualifiers (1) Adjustment disorder: Qualified Code: F43.20 - Adjustment disorder, unspecified type Moose Pina MD May 26, 2017 13:05
[2017-05-26 13:21] VITALS: BP 143/90; PULSE 80; RESP 18; TEMP 98; O2SAT 95
[2017-05-26 16:54] VITALS: BP 140/88; PULSE 91; RESP 16; TEMP 97.6
[2017-05-26 17:12] LABS: HEMOGLOBIN A1a 0.9 %; HEMOGLOBIN A1b 0.9 %; HEMOGLOBIN Ao 85.9 %; HEMOGLOBIN F 0.8 %; HEMOGLOBIN LA1C 1.8 %; HEMOGLOBIN P3 3.7 %
[2017-05-26 18:00] VITALS: BP 162/96; PULSE 92; RESP 17; TEMP 98.2; O2SAT 98
[2017-05-26] MEDS: PRIMIDONE 50 MG TAB PO SCH (21:06)
[2017-05-26] MEDS: CYCLOBENZAPRINE HCL 10 MG TAB PO SCH (21:06)
[2017-05-26] MEDS: GABAPENTIN 300 MG CAP PO SCH (21:06)
[2017-05-26] MEDS: traZODone HCL 50 MG TAB PO SCH (21:06)
[2017-05-26] MEDS: TAMSULOSIN HCL 0.4 MG CAP PO SCH (21:06)
[2017-05-26] MEDS: LATANOPROST 0.005% OPHT SOLN 2.5 ML BTL EACH EYE SCH (21:07)
[2017-05-26] MEDS: TIMOLOL MALEATE 0.5% OPHT SOLN 5 ML BTL EACH EYE SCH (21:07)
[2017-05-27 06:19] VITALS: BP 141/70; PULSE 95; RESP 17; TEMP 99.2; O2SAT 98
[2017-05-27] MEDS ORDERED: DOCUSATE SODIUM 100 MG CAP PO SCH (09:00)
[2017-05-27] MEDS: ASPIRIN EC 81 MG TABEC PO SCH (09:49)
[2017-05-27] MEDS: PRIMIDONE 50 MG TAB PO SCH ×2 (09:49→21:25)
[2017-05-27] MEDS: CYCLOBENZAPRINE HCL 10 MG TAB PO SCH ×2 (09:49→21:25)
[2017-05-27] MEDS: TIMOLOL MALEATE 0.5% OPHT SOLN 5 ML BTL EACH EYE SCH ×2 (09:49→21:24)
--- NOTE | 2017-05-27 11:33 | HHI.PYPN ---
Subjective Remarks Patient seen and examined with nurse. Chart reviewed. Case discussed with nursing staff reports that patient slept well overnight. On my examination today, patient agrees that he had a good night's rest with the trazodone. He denies any SI/HI/AVH. I discuss documentation obtained by DIE DESIGNER APPRENTICE and psych screener with patient, and he emphasizes that at no point has he been suicidal. Seems very comfortable on the unit and is asking for another night on the trazodone. Denies side effects from medications. Does complain of nausea x 1 day, emesis x 1 this morning, no BM today and no flatus. No other physical complaints. Review of Systems Except as stated in HPI: all other systems reviewed are Neg Objective Alert: Yes Jackson: Person (again O x 3) Mood: Calm Affect: Blunted Memory Intact: Comment (no impairment appreciated) Hallucinations: Other (Denies AVH) Delusions: No Delusion Type: Other (No delusions) Suicidal: Ideation (Denies SI, intent, plan) Homicidal: Ideation (Denies HI) Insight/Judgment Fair Remarks No abnormal motor movements noted. TP linear. Speech wnl. Grooming and hygiene fair. Labs Labs reviewed. Vitals/IOs Vital Signs Date Time Temp Pulse Resp B/P Pulse Ox O2 Delivery O2 Flow Rate FiO2 05/27/17 06:19 99.2 95 17 141/70 98 05/25/17 17:43 Room Air Intake and Output 05/26/17 05/26/17 05/27/17 08:00 16:00 00:00 Intake Total 120 ml 1680 ml Balance 120 ml 1680 ml Assessment & Plan Problem List: (1) Adjustment disorder ICD Code: F43.20 Assessment & Plan Concern for obstruction. Abdomen XR [update: image obtained but radiologist read pending as of 14:30]. NPO. Consult to hospitalist. Continue trazodone. Continue other care as ordered. Justification for Cont. Inpt. Complicating conditions. Discharge Planning If no acute medical issue, anticipate discharge tomorrow. Request HC Surrog/Guard Advoc?: No Problem Qualifiers (1) Adjustment disorder: Qualified Code: F43.20 - Adjustment disorder, unspecified type Moose Pina MD May 27, 2017 11:33
[2017-05-27 11:47] VITALS: BP 144/92; PULSE 73; RESP 18
[2017-05-27] MEDS: LORazepam 1 MG TAB PO PRN (11:51)
[2017-05-27] MEDS ORDERED: cloNIDine HCL 0.1 MG TAB PO PRN (12:45)
[2017-05-27] MEDS ORDERED: MAGNESIUM HYDROXIDE SUSP 30 ML CUP PO PRN (13:45)
[2017-05-27] MEDS ORDERED: BISACODYL 10 MG SUPP RECTAL PRN (13:45)
[2017-05-27] MEDS ORDERED: SOD PHOSPHATE/SOD BIPHOSPHATE (ADULT) ENEMA 133ML RECTAL ONE (13:45)
[2017-05-27] MEDS ORDERED: NS + KCL 20 MEQ INJ 1,000 ML IV SCH (13:45)
--- NOTE | 2017-05-27 15:05 | RADRPT ---
EXAM DATE/TIME: 05/27/2017 11:35 [place] COMPARISON: No previous studies available for comparison. INDICATIONS : Abdomen pain, evaluate for obstruction MEDICAL HISTORY : Diabetes mellitus type II. SURGICAL HISTORY : None. ENCOUNTER: Initial ACUITY: 1 month PAIN SCORE: 6/10 LOCATION: Right lower quadrant Abdomen FINDINGS: Examination of the abdomen demonstrates air and stool throughout the colon. 4 mm calcified density ov erlying the right transverse process of L4. No dilated loops of bowel. No free air is identified. No organomegaly is evident. Osseous structures are intact. CONCLUSION: 1. Nonobstructive bowel gas pattern. 2. 4 mm calcification overlying the right L4 transverse process may reflect a distal ureteral calculu s. CT examination may be performed for further evaluation as clinically indicated. Kody Jackson MD on May 27, 2017 at 12:01 Board Certified Radiologist. This report was verified electronically.
--- NOTE | 2017-05-27 15:37 | PD.CONS ---
HPI Service [facility] Consult Requested By Psychiatry team Reason for Consult Nausea vomiting Primary Care Physician No Primary Care Physician Diagnoses: History of Present Illness Written by Augustina Villalobos, acting as scribe for Dr. Davies on 05/27/17 at 15: 09. Patient is a 61-year-old male with primary medical history of insomnia, anxiety , TIA, BPH, HTN who came in to the hospital for evaluation of insomnia problems. As per record, patient hasn't slept well for the last 5 days. He will try to use Ativan but it did not help him. He is now admitted to inpatient psychiatry unit for further evaluation. Consulted for medical management of nausea vomiting. Patient seen and examined today. Reports he had an episode of vomiting 1 after breakfast, he has been nauseous for 4-5 hours. Patient states "I am stuffed. My system was never the same since the divorce." Patient says last good bowel movement was about a week ago. He had one small BM yesterday but feels he is impacted. C/o abdominal pain/ cramping, 07/25, intermittent mostly right quadrant. Patient appears really depressed. Otherwise, denies suicidal ideation, homicidal ideation, denies SOB/ dyspnea. Denies chest pain, palpitations, headaches, dizziness. Denies fevers, chills, diarrhea. Denies dysuria. Review of Systems Except as stated in HPI: all other systems reviewed are Neg Past Family Social History Allergies: Coded Allergies: Codeine (Verified Allergy, Unknown, 05/25/17) Past Medical History Hypertension Heart murmur BPH DM 2 COPD Past Surgical History cleft palate surgery Kidney stents Colonoscopy 2012 Reported Medications Reported Meds & Active Scripts Active Clonazepam 1 Mg Tab 1 Mg PO TID takes 1.5 tabs tid Timolol Opth Drops 0.5 % Soln 1 Applic EACH EYE BID Latanoprost Opth Drops (Latanoprost) 0.005% Drops 1 Drop EACH EYE HS Refrigerate until opened. Primidone 50 Mg Tab 50 Mg PO BID Gabapentin 600 Mg Tab 600 Mg PO HS Paroxetine (Paroxetine HCl) 40 Mg Tab 40 Mg PO BID Stool Softener (Docusate Sodium) 100 Mg Tab 100 Mg PO DAILY Reported Tamsulosin (Tamsulosin HCl) 0.4 Mg Cap 0.4 Mg PO HS Diphenhydramine (Diphenhydramine HCl) 25 Mg Cap 25 Mg PO HS PRN Haloperidol 1 Mg Tab 1 Mg PO BID Flexeril (Cyclobenzaprine HCl) 10 Mg Tab 10 Mg PO BID Zolpidem (Zolpidem Tartrate) 10 Mg Tab 10 Mg PO HS PRN Aspir-81 (Aspirin) 81 Mg Tabdr 81 Mg DAILY Active Ordered Medications Current Medications Medications (Trade) Dose Ordered Sig/Fredrick Route Start Time Stop Time Status Last Admin (Tylenol) 650 mg Q4H PRN PO 05/25/17 18:30 05/26/17 04:43 (Mag-Al Plus Susp Liq) 30 ml Q6H PRN PO 05/25/17 18:30 05/26/17 12:02 (Ativan) 1 mg Q4H PRN PO 05/25/17 19:30 05/27/17 11:51 (Ativan Inj) 1 mg Q4H PRN IV PUSH 05/25/17 19:30 (Ativan) 2 mg Q2H PRN PO 05/25/17 19:30 05/26/17 12:02 (Ativan Inj) 2 mg Q2H PRN IV PUSH 05/25/17 19:30 (Ativan Inj) 2 mg Q1H PRN IV PUSH 05/25/17 19:30 (Ativan Inj) 2 mg Q15M PRN IV PUSH 05/25/17 19:30 (Romazicon Inj) 0.2 mg Q1M PRN IV PUSH 05/25/17 19:30 (Desyrel) 50 mg HS PO 05/26/17 21:00 05/26/17 21:06 (Ecotrin Ec) 81 mg DAILY PO 05/27/17 09:00 05/27/17 09:49 (Flexeril) 10 mg BID PO 05/26/17 21:00 05/27/17 09:49 (Neurontin) 600 mg HS PO 05/26/17 21:00 05/26/17 21:06 (Xalatan 0.005% Opth Soln) 1 drop HS EACH EYE 05/26/17 21:00 05/26/17 21:07 (Mysoline) 50 mg BID PO 05/26/17 21:00 05/27/17 09:49 (Flomax) 0.4 mg HS PO 05/26/17 21:00 05/26/17 21:06 (Timoptic 0.5% Opth Soln) 1 drop BID EACH EYE 05/26/17 21:00 05/27/17 09:49 Clonidine 0.1 mg 0.1 mg Q6H PRN PO 05/27/17 12:45 (NS + KCl 20 Meq Inj) 1,000 ml @ 100 mls/hr Q10H IV 05/27/17 13:45 (Farrah-Colace) 1 tab BID PO 05/27/17 21:00 (Milk Of Magnesia Liq) 30 ml Q12H PRN PO 05/27/17 13:45 (Senokot) 17.2 mg Q12H PRN PO 05/27/17 13:45 (Dulcolax Supp) 10 mg DAILY PRN RECTAL 05/27/17 13:45 (Lactulose Liq) 30 ml DAILY PRN PO 05/27/17 13:45 Family History No family history of cancer Social History Patient recently . 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 Denies alcohol use Denies tobacco use Denies illicit drug use Physical Exam Vital Signs Vital Signs Date Time Temp Pulse Resp B/P Pulse Ox O2 Delivery O2 Flow Rate FiO2 05/27/17 11:47 73 18 144/92 05/27/17 06:19 99.2 95 17 141/70 98 05/26/17 18:00 98.2 92 17 162/96 98 05/26/17 16:54 97.6 91 16 140/88 Physical Exam GENERAL: This is a well-nourished, appears older than stated age, well- developed patient, in no apparent distress. SKIN: No rashes, ecchymoses or lesions. Cool and dry. HEAD: Atraumatic. Normocephalic. No temporal or scalp tenderness. EYES: Pupils equal round and reactive. Extraocular motions intact. No scleral icterus. No injection or drainage. ENT: Nose without bleeding. Throat without erythema. Uvula midline. Airway patent. NECK: Trachea midline. CARDIOVASCULAR: Regular rate and rhythm with systolic murmur no gallops, or rubs. RESPIRATORY: Clear to auscultation. No wheezes, rales, or rhonchi. GASTROINTESTINAL: Abdomen soft, nondistended. Tenderness to palpate right abdominal quadrant. BS active x4. MUSCULOSKELETAL: Extremities without clubbing, cyanosis, or edema. No joint tenderness, effusion, or edema noted. NEUROLOGICAL: Awake and alert. Oriented to place, person. Motor and sensory grossly within normal limits. Normal speech. Result Diagram: 05/25/17 0755 05/26/17 0818 Imaging AXR interpreted by me w/o sbo Last Impressions Abdomen X-Ray 05/27/17 0000 Signed Impressions: Service Date/Time: May 11:35 - CONCLUSION: 1. Nonobstructive bowel gas pattern. 2. 4 mm calcification overlying the right L4 transverse process may reflect a distal ureteral calculus. CT examination may be performed for further evaluation as clinically indicated. Kody Jackson MD Assessment and Plan Problem List: (1) History of dementia ICD Code: Z86.59 Status: Acute (2) Insomnia ICD Code: G47.00 Status: Acute (3) COPD (chronic obstructive pulmonary disease) ICD Code: J44.9 Status: Acute (4) Constipation ICD Code: K59.00 Status: Acute Assessment and Plan Patient is a 61-year-old male with primary medical history of insomnia, anxiety , TIA, BPH, HTN who came in to the hospital for evaluation of insomnia problems. As per record, patient hasn't slept well for the last 5 days. He will try to use Ativan but it did not help him. He is now admitted to inpatient psychiatry unit for further evaluation. Consulted for medical management of nausea vomiting. Insomnia, depression, anxiety - Managed by psychiatry team Constipation versus bowel obstruction Kidney stones - Abdominal pain, right quadrant associated with nausea vomiting - Patient has not had any bowel movement for the past few days as per his report - Fleets enema then dulcolax supp . AIf still no BM disimpact if needed. Consider gastrogafin enema - Bowel regimen - Abdominal x-ray showed examination of the abdomen demonstrates air and stool throughout the colon. 4 mm calcified density overlying the right transverse process of L4. No dilated loops of bowel. No free air identified. No organomegaly is evident. Cautious structures are intact. Recommend CT examination for further evaluation - Clear liquid for now, advance diet as tolerated. - If patient is unable to tolerate clear liquids, we'll start IV fluids. We' ll transfer to medical psych unit. HTN, history - Not on any BP meds at home, we'll trend BP - Clonidine when necessary History of DM 2 - Latest hemoglobin A1 c 5.8 - Patient previously was on metformin and glimepiride. Off medications maintaining hemoglobin A1c within normal. Hx TIA, HLD, BPH, chronic pain, galucoma and dementia. Needs statin DVT prop ambulatory Code Status Full code Discussed Condition With Patient, nursing This note was transcribed by ama Villalobos]. I, Dr. Raúl Davies personally performed the history, physical exam, and medical decision making; and confirmed the accuracy of the information in the transcribed note. Authenticated by Dr. Raúl Davies on 05/27/17 at 15:09. Problem Qualifiers (1) Insomnia: Qualified Code: G47.00 - Insomnia, unspecified type Augustina Huerta May 27, 2017 15:36 Raúl Davies MD May 27, 2017 15:50
[2017-05-27 16:01] VITALS: BP 162/95; PULSE 76; RESP 16; TEMP 99.5
[2017-05-27 18:00] VITALS: BP 133/74; PULSE 79; RESP 18; TEMP 98.9; O2SAT 95
[2017-05-27] MEDS: LATANOPROST 0.005% OPHT SOLN 2.5 ML BTL EACH EYE SCH (21:24)
[2017-05-27] MEDS: GABAPENTIN 300 MG CAP PO SCH (21:25)
[2017-05-27] MEDS: DOCUSATE SODIUM 50 MG/SENNA 8.6 MG TAB PO SCH (21:25)
[2017-05-27] MEDS: traZODone HCL 50 MG TAB PO SCH (21:25)
[2017-05-27] MEDS: TAMSULOSIN HCL 0.4 MG CAP PO SCH (21:25)
--- NOTE | 2017-05-27 22:12 | RADRPT ---
EXAM DATE/TIME: 05/27/2017 21:53 [facility] COMPARISON: No previous studies available for comparison. INDICATIONS : Right flank pain, evaluate for calculi. ORAL CONTRAST: No oral contrast ingested. RADIATION DOSE: 8.05 CTDIvol (mGy) MEDICAL HISTORY : Renal calculi. Diabetes. SURGICAL HISTORY : None. ENCOUNTER: Initial ACUITY: 1 day PAIN SCALE: 6/10 LOCATION: Right flank TECHNIQUE: Volumetric scanning of the abdomen and pelvis was performed. Using automated exposure control and ad justment of the mA and/or kV according to patient size, radiation dose was kept as low as reasonably achievable to obtain optimal diagnostic quality images. DICOM format image data is available electro nically for review and comparison. FINDINGS: CT Abdomen: There are stones in both kidneys. In the left kidney there are 6 separate stones the larg est measures 5-6 mm in size without hydronephrosis. In the right kidney there are 7 separate stones t he largest measures 3-4 mm in size with an approximate 5 mm stone in right distal ureter which causes moderate hydronephrosis. The liver, spleen, pancreas, adrenals are unremarkable. There is no evidenc e for any appreciable pathological adenopathy, free fluid, or bowel obstruction. There is old fractu re of right L1 transverse process. CT pelvis: There is no evidence for mass, abscess formation, or any significant adenopathy within the pelvis. The prostate gland is inhomogeneous and measures 3.7 x 4.4 cm in AP and transverse diameters and nonspecific. CONCLUSION: Moderate hydronephrosis the right kidney due to an approximate 5 mm distal ureteral s dafne. Fco Sharma MD on May 27, 2017 at 22:08 Board Certified Radiologist. This report was verified electronically.
[2017-05-28 06:00] VITALS: BP 127/77; PULSE 86; RESP 18; TEMP 98.5
--- NOTE | 2017-05-28 07:42 | HHI.PR ---
Subjective Remarks Follow-up Constipation and obstructive uropathy. Still with right lower quadrant and no BM. Dw RN Objective Vitals Vital Signs Date Time Temp Pulse Resp B/P Pulse Ox O2 Delivery O2 Flow Rate FiO2 05/28/17 06:00 98.5 86 18 127/77 05/27/17 18:00 98.9 79 18 133/74 95 05/27/17 16:01 99.5 76 16 162/95 05/27/17 11:47 73 18 144/92 I/O 05/27/17 05/27/17 05/27/17 05/28/17 05/28/17 05/28/17 07:00 15:00 23:00 07:00 15:00 23:00 Intake Total 1080 ml 960 ml 720 ml Balance 1080 ml 960 ml 720 ml Intake Oral 1080 ml 960 ml 720 ml # Voids 4 1 2 Result Diagram: 05/25/17 0755 05/26/17 0818 Imaging Last Impressions Abdomen/Pelvis CT 05/27/17 0000 Signed Impressions: Service Date/Time: May 21:53 - CONCLUSION: Moderate hydronephrosis the right kidney due to an approximate 5 mm distal ureteral stone. Fco Sharma MD Abdomen X-Ray 05/27/17 0000 Signed Impressions: Service Date/Time: May 11:35 - CONCLUSION: 1. Nonobstructive bowel gas pattern. 2. 4 mm calcification overlying the right L4 transverse process may reflect a distal ureteral calculus. CT examination may be performed for further evaluation as clinically indicated. Kody Jackson MD Objective Remarks GENERAL: This is a well-nourished, appears older than stated age, well- developed patient, in no apparent distress. SKIN: No rashes, ecchymoses or lesions. Cool and dry. HEAD: Atraumatic. Normocephalic. No temporal or scalp tenderness. EYES: Pupils equal round and reactive. Extraocular motions intact. No scleral icterus. No injection or drainage. ENT: Nose without bleeding. Throat without erythema. Uvula midline. Airway patent. NECK: Trachea midline. CARDIOVASCULAR: Regular rate and rhythm with systolic murmur no gallops, or rubs. RESPIRATORY: Clear to auscultation. No wheezes, rales, or rhonchi. GASTROINTESTINAL: Abdomen soft, nondistended. Tenderness to palpate right abdominal quadrant. BS active x4. MUSCULOSKELETAL: Extremities without clubbing, cyanosis, or edema. No joint tenderness, effusion, or edema noted. NEUROLOGICAL: Awake and alert. Oriented to place, person. Motor and sensory grossly within normal limits. Normal speech. A/P Problem List: (1) History of dementia ICD Code: Z86.59 Status: Acute (2) Insomnia ICD Code: G47.00 Status: Acute (3) COPD (chronic obstructive pulmonary disease) ICD Code: J44.9 Status: Acute (4) Constipation ICD Code: K59.00 Status: Acute Assessment and Plan Patient is a 61-year-old male with primary medical history of insomnia, anxiety , TIA, BPH, HTN who came in to the hospital for evaluation of insomnia problems. As per record, patient hasn't slept well for the last 5 days. He will try to use Ativan but it did not help him. He is now admitted to inpatient psychiatry unit for further evaluation. Consulted for medical management of nausea vomiting. Insomnia, depression, anxiety - Managed by psychiatry team Constipation versus bowel obstruction Kidney stones - Abdominal pain, right quadrant associated with nausea vomiting - Patient has not had any bowel movement for the past few days as per his report - Fleets enema then dulcolax supp . If still no BM disimpact if needed. Consider gastrogafin enema. Add MiraLAX to Farrah-Colace - Bowel regimen as needed discussed with RN to be given to patient - Abdominal x-ray showed examination of the abdomen demonstrates air and stool throughout the colon. 4 mm calcified density overlying the right transverse process of L4. No dilated loops of bowel. No free air identified. No organomegaly is evident. Cautious structures are intact. Recommend CT which showed hydronephrosis and 5 mm ureteral stone. Status post evaluation recommended Flomax and pain management. Conservative management at this time. Repeat x-ray in the morning - advance diet as tolerated. - If patient is unable to tolerate, we'll start IV fluids. We'll transfer to medical psych unit. HTN, history - Not on any BP meds at home, we'll trend BP - Clonidine when necessary History of DM 2 - Latest hemoglobin A1 c 5.8 - Patient previously was on metformin and glimepiride. Off medications maintaining hemoglobin A1c within normal. Hx TIA, HLD, BPH, chronic pain, galucoma and dementia. Needs statin 10 year ASCVD rsik of 32.6% was started Lipitor 40 mg DVT prop ambulatory Problem Qualifiers (1) Insomnia: Qualified Code: G47.00 - Insomnia, unspecified type Raúl Davies MD May 28, 2017 07:42
[2017-05-28 09:31] LABS: BASOPHIL % 0.3 % (0.0-2.0); EOSINOPHIL # 0.8 TH/MM3 (0-0.4); EOSINOPHIL % 11.6 % (0.0-4.0); HEMATOCRIT 39.4 % (39.0-51.0); HEMO FLAGS DIFF FINAL; LYMPH % 28.3 % (9.0-44.0); LYMPHOCYTE # 1.9 TH/MM3 (1.0-4.8); MEAN CELL VOLUME 84.1 FL (80.0-100.0); MEAN CORPUSCULAR HEMOGLOBIN 26.9 PG (27.0-34.0); MONO % 14.2 % (0.0-8.0); NEUT % 45.6 % (16.0-70.0); PLATELET COUNT 213 TH/MM3 (150-450); RED BLOOD COUNT 4.69 MIL/MM3 (4.50-5.90); RED CELL DISTRIBUTION WIDTH 13.7 % (11.6-17.2); WHITE BLOOD COUNT 6.7 TH/MM3 (4.0-11.0)
[2017-05-28 10:08] LABS: BICARBONATE 27.5 MEQ/L (21.0-32.0); MAGNESIUM 1.9 MG/DL (1.5-2.5); POTASSIUM 3.2 MEQ/L (3.5-5.1)
--- NOTE | 2017-05-28 10:12 | HHI.PYPN ---
Subjective Remarks Patient seen and examined with counselor. Chart reviewed. Workup for patient' s somatic complaints yesterday revealed a 0.5 cm right ureteral stone. Case discussed with nursing staff. On my examination today, patient presents as a little bit morose but is denying suicidal or homicidal ideation. Sleep remains somewhat poor. Reports that he has still not had a bowel movement. Denies side effects from the trazodone and would like to increase this medication. No new physical complaints. Review of Systems Except as stated in HPI: all other systems reviewed are Neg Objective Alert: Yes [place]: Person (O x 3) Mood: Calm Affect: Blunted (remains blunted) Memory Intact: Comment (Not impaired) Hallucinations: Other (No AVH) Delusions: No Delusion Type: Other (No delusional material elicited) Suicidal: Ideation (Denies SI) Homicidal: Ideation (Denies HI) Insight/Judgment Fair Remarks No motor abnormalities noted. No acute physical distress. Thought process linear. No delirium noted. Labs Test 05/28/17 08:50 White Blood Count 6.7 TH/MM3 Red Blood Count 4.69 MIL/MM3 Hemoglobin 12.6 GM/DL Hematocrit 39.4 % Mean Corpuscular Volume 84.1 FL Mean Corpuscular Hemoglobin 26.9 PG Mean Corpuscular Hemoglobin 32.0 % Concent Red Cell Distribution Width 13.7 % Platelet Count 213 TH/MM3 Mean Platelet Volume 8.9 FL Neutrophils (%) (Auto) 45.6 % Lymphocytes (%) (Auto) 28.3 % Monocytes (%) (Auto) 14.2 % Eosinophils (%) (Auto) 11.6 % Basophils (%) (Auto) 0.3 % Neutrophils # (Auto) 3.0 TH/MM3 Lymphocytes # (Auto) 1.9 TH/MM3 Monocytes # (Auto) 1.0 TH/MM3 Eosinophils # (Auto) 0.8 TH/MM3 Basophils # (Auto) 0.0 TH/MM3 CBC Comment DIFF FINAL Differential Comment Sodium Level 140 MEQ/L Potassium Level 3.2 MEQ/L Chloride Level 104 MEQ/L Carbon Dioxide Level 27.5 MEQ/L Anion Gap 9 MEQ/L Blood Urea Nitrogen 9 MG/DL Creatinine 0.97 MG/DL Estimat Glomerular Filtration 78 ML/MIN Rate Random Glucose 122 MG/DL Calcium Level 9.6 MG/DL Magnesium Level 1.9 MG/DL Labs reviewed. Study impressions reviewed. Last Impressions Abdomen/Pelvis CT 05/27/17 0000 Signed Impressions: Service Date/Time: May 21:53 - CONCLUSION: Moderate hydronephrosis the right kidney due to an approximate 5 mm distal ureteral stone. Fco Sharma MD Abdomen X-Ray 05/27/17 0000 Signed Impressions: Service Date/Time: May 11:35 - CONCLUSION: 1. Nonobstructive bowel gas pattern. 2. 4 mm calcification overlying the right L4 transverse process may reflect a distal ureteral calculus. CT examination may be performed for further evaluation as clinically indicated. Kody Jackson MD Vitals/IOs Vital Signs Date Time Temp Pulse Resp B/P Pulse Ox O2 Delivery O2 Flow Rate FiO2 05/28/17 06:00 98.5 86 18 127/77 05/27/17 18:00 95 05/25/17 17:43 Room Air Intake and Output 05/27/17 05/27/17 05/28/17 08:00 16:00 00:00 Intake Total 480 ml 600 ml 720 ml Balance 480 ml 600 ml 720 ml Assessment & Plan Problem List: (1) Adjustment disorder ICD Code: F43.20 Assessment & Plan Titrate trazodone to 100mg qHS. Appreciate hospitalist and urology input. Case d/w Dr. Orona who plans to have patient try to pass the stone. Continue to monitor on the inpatient unit. Continue other medications and care as ordered. Justification for Cont. Inpt. Complicating conditions. Discharge Planning If patient is cleared from medicine/urology standpoint, possible discharge home after weekend. Request HC Surrog/Guard Advoc?: No Problem Qualifiers (1) Adjustment disorder: Qualified Code: F43.20 - Adjustment disorder, unspecified type Moose Pina MD May 28, 2017 10:12
[2017-05-28] MEDS ORDERED: POTASSIUM CHLORIDE 20 MEQ CONTROLLED RELEASE TAB PO ONE (11:30)
[2017-05-28] MEDS ORDERED: TAMSULOSIN HCL 0.4 MG CAP PO SCH (12:45)
[2017-05-28] MEDS ORDERED: KETOROLAC TROMETHAMINE 30 MG/ML (IVP) VIAL IV PUSH SCH (13:00)
[2017-05-28] MEDS ORDERED: POTASSIUM CHLORIDE 10 MEQ CONTROLLED RELEASE TAB PO ONE (13:00)
[2017-05-28] MEDS: PRIMIDONE 50 MG TAB PO SCH ×2 (13:06→20:41)
[2017-05-28] MEDS: CYCLOBENZAPRINE HCL 10 MG TAB PO SCH ×2 (13:06→20:41)
[2017-05-28] MEDS: DOCUSATE SODIUM 50 MG/SENNA 8.6 MG TAB PO SCH ×2 (13:06→20:41)
[2017-05-28] MEDS: TIMOLOL MALEATE 0.5% OPHT SOLN 5 ML BTL EACH EYE SCH ×2 (13:08→21:42)
[2017-05-28] MEDS ORDERED: NS + KCL 20 MEQ INJ 1,000 ML IV PRN (13:45)
[2017-05-28] MEDS: oxyCODONE/ACETAMINOPHEN 5 MG/325 MG TAB PO PRN ×2 (15:16→20:40)
[2017-05-28] MEDS: POLYETHYLENE GLYCOL 17 GM PKG PO SCH (17:25)
[2017-05-28 18:00] VITALS: BP 165/96; PULSE 82; RESP 18; TEMP 98.8; O2SAT 97
[2017-05-28] MEDS: LATANOPROST 0.005% OPHT SOLN 2.5 ML BTL EACH EYE SCH (20:40)
[2017-05-28] MEDS: GABAPENTIN 300 MG CAP PO SCH (20:41)
[2017-05-28] MEDS: traZODone HCL 50 MG TAB PO SCH (20:41)
[2017-05-28] MEDS: TAMSULOSIN HCL 0.4 MG CAP PO SCH (20:41)
[2017-05-29 05:43] VITALS: BP 127/73; PULSE 83; RESP 16; TEMP 98.3; O2SAT 91
--- NOTE | 2017-05-29 08:22 | RADRPT ---
EXAM DATE/TIME: 05/29/2017 07:32 [facility] COMPARISON: CT ABDOMEN & PELVIS W/O CONTRAST, May 27, 2017, 21:53. INDICATIONS : Right sided abdominal pain. MEDICAL HISTORY : Renal calculi. Diabetes. SURGICAL HISTORY : None. ENCOUNTER: Subsequent ACUITY: 3 days PAIN SCORE: 6/10 LOCATION: abdomen. FINDINGS: Small calcific densities are identified overlying the right kidney. Calculus previously identified in the mid to distal right ureter is evident on plain film radiograph and has not significantly progressed. Chest is unremarkable. CONCLUSION: Right nephrolithiasis. Persistent mid to distal right ureteral stone. Rafa Walker MD on May 29, 2017 at 8:18 Board Certified Radiologist. This report was verified electronically.
--- NOTE | 2017-05-29 08:48 | HHI.PR ---
Subjective Remarks Follow-up kidney stone and obstructive uropathy. States pain is managed with oral pain medicine. Complains of diaphoresis since yesterday. Still no bowel movement. Discussed with RN Objective Vitals Vital Signs Date Time Temp Pulse Resp B/P Pulse Ox O2 Delivery O2 Flow Rate FiO2 05/29/17 05:43 98.3 83 16 127/73 91 05/28/17 18:00 98.8 82 18 165/96 97 I/O 05/28/17 05/28/17 05/28/17 05/29/17 05/29/17 05/29/17 07:00 15:00 23:00 07:00 15:00 23:00 Intake Total 720 ml 0 ml 880 ml 360 ml Balance 720 ml 0 ml 880 ml 360 ml Intake Oral 720 ml 0 ml 880 ml 360 ml # Voids 2 0 1 Result Diagram: 05/28/17 0850 05/28/17 0850 Imaging Last Impressions Abdomen X-Ray 05/29/17 0600 Signed Impressions: Service Date/Time: Monday, May 29, 2017 07:32 - CONCLUSION: Right nephrolithiasis. Persistent mid to distal right ureteral stone. Rafa Walker MD Abdomen/Pelvis CT 05/27/17 0000 Signed Impressions: Service Date/Time: May 21:53 - CONCLUSION: Moderate hydronephrosis the right kidney due to an approximate 5 mm distal ureteral stone. Fco Sharma MD Objective Remarks GENERAL: This is a well-nourished, appears older than stated age, well- developed patient, in no apparent distress. SKIN: No rashes, ecchymoses or lesions. Diaphoretic. HEAD: Atraumatic. Normocephalic. No temporal or scalp tenderness. EYES: Pupils equal round and reactive. Extraocular motions intact. No scleral icterus. No injection or drainage. ENT: Nose without bleeding. Throat without erythema. Uvula midline. Airway patent. NECK: Trachea midline. CARDIOVASCULAR: Regular rate and rhythm with systolic murmur no gallops, or rubs. RESPIRATORY: Clear to auscultation. No wheezes, rales, or rhonchi. GASTROINTESTINAL: Abdomen soft, nondistended. Less tenderness right abdominal quadrant. BS active x4. MUSCULOSKELETAL: Extremities without clubbing, cyanosis, or edema. No joint tenderness, effusion, or edema noted. NEUROLOGICAL: Awake and alert. Oriented to place, person. Motor and sensory grossly within normal limits. Normal speech. A/P Problem List: (1) History of dementia ICD Code: Z86.59 Status: Acute (2) Insomnia ICD Code: G47.00 Status: Acute (3) COPD (chronic obstructive pulmonary disease) ICD Code: J44.9 Status: Acute (4) Constipation ICD Code: K59.00 Status: Acute Assessment and Plan Patient is a 61-year-old male with primary medical history of insomnia, anxiety , TIA, BPH, HTN who came in to the hospital for evaluation of insomnia problems. As per record, patient hasn't slept well for the last 5 days. He will try to use Ativan but it did not help him. He is now admitted to inpatient psychiatry unit for further evaluation. Consulted for medical management of nausea vomiting. Insomnia, depression, anxiety - Managed by psychiatry team Constipation Obstructive uropathy secondary to ureteral stone - Abdominal pain, right quadrant associated with nausea vomiting - Patient has not had any bowel movement for the past few days as per his report - Fleets enema then dulcolax supp . If still no BM disimpact if needed. Consider gastrogafin enema. Add MiraLAX to Farrah-Colace - Bowel regimen as needed discussed with RN to be given to patient - Abdominal x-ray showed examination of the abdomen demonstrates air and stool throughout the colon. 4 mm calcified density overlying the right transverse process of L4. No dilated loops of bowel. No free air identified. No organomegaly is evident. Cautious structures are intact. Recommend CT which showed hydronephrosis and 5 mm ureteral stone. Status post evaluation recommended Flomax and pain management. Conservative management at this time. Strain all urine and encourage hydration Repeat x-ray shows kidney and ureteral stone on the right - advance diet as tolerated. - If patient is unable to tolerate, we'll start IV fluids. We'll transfer to medical psych unit. HTN, history - Not on any BP meds at home, we'll trend BP - Clonidine when necessary History of DM 2 - Latest hemoglobin A1 c 5.8 - Patient previously was on metformin and glimepiride. Off medications maintaining hemoglobin A1c within normal. Hx TIA, HLD, BPH, chronic pain, galucoma and dementia. Needs statin 10 year ASCVD rsik of 32.6% was started Lipitor 40 mg DVT prop ambulatory Discharge Planning Transferred to [facility] psych floor for IV hydration secondary to acute kidney injury secondary to obstructive uropathy. Problem Qualifiers (1) Insomnia: Qualified Code: G47.00 - Insomnia, unspecified type Raúl Davies MD May 29, 2017 08:48
[2017-05-29] MEDS: POLYETHYLENE GLYCOL 17 GM PKG PO SCH (09:09)
[2017-05-29] MEDS: oxyCODONE/ACETAMINOPHEN 5 MG/325 MG TAB PO PRN ×4 (09:10→22:29)
[2017-05-29] MEDS: DOCUSATE SODIUM 50 MG/SENNA 8.6 MG TAB PO SCH ×2 (09:11→21:39)
[2017-05-29] MEDS: ASPIRIN EC 81 MG TABEC PO SCH (09:11)
[2017-05-29] MEDS: CYCLOBENZAPRINE HCL 10 MG TAB PO SCH ×2 (09:11→21:39)
[2017-05-29] MEDS: PRIMIDONE 50 MG TAB PO SCH ×2 (09:11→21:39)
[2017-05-29] MEDS: TIMOLOL MALEATE 0.5% OPHT SOLN 5 ML BTL EACH EYE SCH ×2 (09:11→21:39)
--- NOTE | 2017-05-29 10:26 | HHI.PYPN ---
Subjective Remarks Patient was seen and case discussed with nursing. Patient is pleasant and cooperative with exam. He reports pain 9 out of 10 for a passing kidney stone. He is alert and oriented 3. Says he no longer has thoughts of shooting himself or others. Denies depressed mood. Affect is anxious. Denies suicidal ideation intent or plan. Objective Alert: Yes [place]: Person (O x 3), Place, Date Mood: Calm Affect: Restricted Memory Intact: Comment (Not impaired) Hallucinations: Other (No AVH) Delusions: No Delusion Type: Other (No delusional material elicited) Suicidal: Ideation (Denies SI) Homicidal: Ideation (Denies HI) Insight/Judgment Poor Vitals/IOs Vital Signs Date Time Temp Pulse Resp B/P Pulse Ox O2 Delivery O2 Flow Rate FiO2 05/29/17 05:43 98.3 83 16 127/73 91 05/25/17 17:43 Room Air Intake and Output 05/28/17 05/28/17 05/28/17 07:59 15:59 23:59 Intake Total 0 ml 0 ml 880 ml Balance 0 ml 0 ml 880 ml Assessment & Plan Problem List: (1) Adjustment disorder ICD Code: F43.20 Assessment & Plan Continue current treatment plan Justification for Cont. Inpt. Patient will decompensate in a less restrictive setting Request HC Surrog/Guard Advoc?: No Problem Qualifiers (1) Adjustment disorder: Qualified Code: F43.20 - Adjustment disorder, unspecified type Ruben Aldridge DO May 29, 2017 10:26
[2017-05-29 10:32] LABS: BICARBONATE 28.9 MEQ/L (21.0-32.0); POTASSIUM 3.8 MEQ/L (3.5-5.1)
--- NOTE | 2017-05-29 12:39 | MB ---
cc: CORTEZ BARRIOS MD DATE OF CONSULTATION: 05/28/2017 REASON FOR CONSULTATION Kidney stone. HISTORY OF PRESENT ILLNESS The patient is a 61-year-old male with a history of kidney stones who was admitted three days ago with complaints of insomnia after going through a rough divorce, and starting about two days ago he started complaining of right-sided abdominal pain 9/10 in intensity. He thought maybe he was constipated as he had not had a bowel movement in several days. He also complained of nausea. The patient had a CT of the abdomen and pelvis without contrast done due to this abdominal pain and was found to have multiple nonobstructing stones in each kidney as well as a 5 mm stone in his right distal ureter. Urology was consulted for these kidney stones. The patient continues to complain of right lower quadrant pain 9/10 in intensity. Denies dysuria, hematuria, fevers or chills. He states he has had kidney stones in the past which he has been able to pass them on his own most recently several years ago, however he states this episode has caused significant pain. Denies a family history kidney stones. Denies a family history of genitourinary malignancies. He currently has not taken any other pain meds for this pain other than Tylenol. REVIEW OF SYSTEMS See HPI otherwise all systems reviewed otherwise were negative. PAST MEDICAL HISTORY Significant for - 1. Kidney stones. 2. Hypertension. 3. BPH. 4. Heart murmur. 5. Diabetes. 6. COPD. PAST SURGICAL HISTORY 1. Colonoscopy. 2. Cleft palate surgery. 3. Circumcision. MEDICATIONS 1. Gabapentin 600 mg p.o. q.h.s. 2. Paxil 40 mg p.o. b.i.d. 3. Clonazepam 1 mg p.o. t.i.d. 4. Primidone 50 mg p.o. b.i.d. 5. Colace 100 mg p.o. daily. FAMILY HISTORY Denies genitourinary malignancies or urolithiasis. SOCIAL HISTORY Denies smoking, alcohol or illicit drugs. He works at a [employer]. PHYSICAL EXAMINATION VITAL SIGNS: His temperature is 98.5, pulse 86, respiratory rate 18, BP 127/77, satting 97% on room air. GENERAL: He is alert and oriented x3, in no apparent distress. A pleasant, cooperative gentleman, appears his stated age. HEAD, EYES, EARS, NOSE AND THROAT: Head is normocephalic, atraumatic. Eyes: No scleral icterus. Extraocular muscles intact. NECK: Neck is supple. Trachea is midline. No JVD. LUNGS: Clear to auscultation bilaterally. No wheezes, rales or rhonchi. HEART: Regular rhythm. He has a mild systolic murmur. ABDOMEN: Soft, nontender, nondistended. Positive bowel sounds. GENITOURINARY: He has no CVA tenderness bilaterally. His penis is circumcised. Testes descended bilaterally, normal size and consistency. RECTAL: Exam not indicated at this time. EXTREMITIES: Nontender. No clubbing, cyanosis or edema. PSYCHIATRIC: Flat affect. NEUROLOGIC: Cranial nerves II through XII intact. Strength 5/5 in all four extremities. SKIN: No ulcers or rashes. Mucous membranes are pink and moist. LABORATORY DATA White count of 6.7, hemoglobin 12.6, hematocrit 39.4, platelet count 213. Sodium 140, potassium 3.2, chloride 104, bicarb 27.5, creatinine 0.97. His urine was negative. IMAGING STUDIES CT of the abdomen and pelvis without contrast: Images were reviewed, agree with radiologist's report. The patient has bilateral nonobstructing stones as well as a 5 mm stone in his right distal ureter causing mild hydronephrosis. PLAN The patient is a 61-year-old male with a history of kidney stones who was admitted for insomnia and started having abdominal pain and was found to have bilateral nonobstructing kidney stones as well as a distal right ureteral stone. PLAN Recommend a trial of passage. We will start the patient on Flomax, continue to strain all his urine and add Percocet for pain. If his pain remains controlled, he can then be discharged home with Flomax and Percocet and followup as an outpatient. However, if his pain is not controlled or his symptoms worsen then will need definitive treatment of the stone. We will go ahead and check a BMP in the morning as well as repeat a KUB. Cortez Barrios MD [facility]/[place] /6:17 AM /12:00 PM
[2017-05-29] MEDS: SODIUM CHLOR 0.9% 1000 ML INJ 1,000 ML IV SCH (14:15)
--- NOTE | 2017-05-29 14:22 | HHI.PR ---
Subjective Patient symptoms today pain improved with percocet. Denies nausea, fevers, dysuria. still feels constipated. Objective Vital Signs Vital Signs Date Time Temp Pulse Resp B/P Pulse Ox O2 Delivery O2 Flow Rate FiO2 05/29/17 05:43 98.3 83 16 127/73 91 05/28/17 18:00 98.8 82 18 165/96 97 Intake & Output 05/29/17 05/29/17 07:00 19:00 Intake Total 880 ml 600 ml Balance 880 ml 600 ml Intake Oral 880 ml 600 ml # Voids 1 Result Diagram: 05/28/17 0850 05/29/17 0920 Imaging Last 24 hours Impressions Abdomen X-Ray 05/29/17 0600 Signed Impressions: Service Date/Time: Monday, May 29, 2017 07:32 - CONCLUSION: Right nephrolithiasis. Persistent mid to distal right ureteral stone. Rafa Walker MD Objective Remarks NAD. A/O x 3 abd soft No CVAT Medications and IVs Current Medications Medications (Trade) Dose Ordered Sig/Fredrick Route Start Time Stop Time Status Last Admin (Tylenol) 650 mg Q4H PRN PO 05/25/17 18:30 05/26/17 04:43 (Ativan) 1 mg Q4H PRN PO 05/25/17 19:30 05/27/17 11:51 (Ativan Inj) 1 mg Q4H PRN IV PUSH 05/25/17 19:30 (Ativan) 2 mg Q2H PRN PO 05/25/17 19:30 05/26/17 12:02 (Ativan Inj) 2 mg Q2H PRN IV PUSH 05/25/17 19:30 (Ativan Inj) 2 mg Q1H PRN IV PUSH 05/25/17 19:30 (Ativan Inj) 2 mg Q15M PRN IV PUSH 05/25/17 19:30 (Romazicon Inj) 0.2 mg Q1M PRN IV PUSH 05/25/17 19:30 (Ecotrin Ec) 81 mg DAILY PO 05/27/17 09:00 05/29/17 09:11 (Flexeril) 10 mg BID PO 05/26/17 21:00 05/29/17 09:11 (Neurontin) 600 mg HS PO 05/26/17 21:00 05/28/17 20:41 (Xalatan 0.005% Opth Soln) 1 drop HS EACH EYE 05/26/17 21:00 05/28/17 20:40 (Mysoline) 50 mg BID PO 05/26/17 21:00 05/29/17 09:11 (Flomax) 0.4 mg HS PO 05/26/17 21:00 05/28/17 20:41 (Timoptic 0.5% Opth Soln) 1 drop BID EACH EYE 05/26/17 21:00 05/29/17 09:11 (Catapres) 0.1 mg Q6H PRN PO 05/27/17 12:45 (Farrah-Colace) 1 tab BID PO 05/27/17 21:00 05/29/17 09:11 (Senokot) 17.2 mg Q12H PRN PO 05/27/17 13:45 (Dulcolax Supp) 10 mg DAILY PRN RECTAL 05/27/17 13:45 05/28/17 11:26 (Lactulose Liq) 30 ml DAILY PRN PO 05/27/17 13:45 (Desyrel) 100 mg HS PO 05/28/17 21:00 05/28/17 20:41 (Percocet 5-325 Mg) 2 tab Q4H PRN PO 05/28/17 12:45 05/29/17 09:10 Polyethylene Glycol 17 gm 17 gm DAILY PO 05/28/17 15:45 05/29/17 09:09 (NS 1000 ml Inj) 1,000 ml @ 100 mls/hr Q10H IV 05/29/17 14:15 (Lipitor) 40 mg HS PO 05/29/17 21:00 Assessment and Plan Problem List: (1) Nephrolithiasis ICD Code: N20.0 Status: Resolved (2) EVELIO (acute kidney injury) ICD Code: N17.9 Status: Resolved Assessment and Plan -KUB reviewed. Stone has migrated more distally in last 2 days. Will repeat KUB in A.M. -Recommend continue pain control, Flomax, strain urine. -Creatine went up, likely from obstruction by stone. Will repeat BMP in a.m. -If he does not significantly improve and/or his Creatinine worsens without progression of the stone, then he may need procedure. Will make NPO after midnight. Cortez Orona MD May 29, 2017 14:22
[2017-05-29] MEDS: LATANOPROST 0.005% OPHT SOLN 2.5 ML BTL EACH EYE SCH (21:38)
[2017-05-29] MEDS: GABAPENTIN 300 MG CAP PO SCH (21:39)
[2017-05-29] MEDS: ATORVASTATIN 40 MG TAB PO SCH (21:39)
[2017-05-29] MEDS: TAMSULOSIN HCL 0.4 MG CAP PO SCH (21:39)
[2017-05-29] MEDS: traZODone HCL 50 MG TAB PO SCH (21:39)
[2017-05-30] MEDS: SODIUM CHLOR 0.9% 1000 ML INJ 1,000 ML IV SCH ×3 (00:15→20:37)
[2017-05-30] MEDS: SENNOSIDES 8.6 MG TAB PO PRN ×2 (05:53→14:21)
[2017-05-30 06:00] VITALS: BP 123/81; PULSE 77; RESP 16; TEMP 98.4; O2SAT 92
[2017-05-30] MEDS: oxyCODONE/ACETAMINOPHEN 5 MG/325 MG TAB PO PRN ×4 (06:23→22:38)
[2017-05-30] MEDS: TIMOLOL MALEATE 0.5% OPHT SOLN 5 ML BTL EACH EYE SCH ×2 (09:00→20:36)
[2017-05-30 09:43] LABS: AUTOMATED NEUTROPHIL # 4.3 TH/MM3 (1.8-7.7); BASOPHIL % 0.4 % (0.0-2.0); EOSINOPHIL # 0.6 TH/MM3 (0-0.4); EOSINOPHIL % 8.4 % (0.0-4.0); HEMATOCRIT 38.9 % (39.0-51.0); HEMO FLAGS DIFF FINAL; LYMPH % 20.7 % (9.0-44.0); LYMPHOCYTE # 1.6 TH/MM3 (1.0-4.8); MEAN CELL VOLUME 85.1 FL (80.0-100.0); MEAN CORPUSCULAR HEMOGLOBIN 27.5 PG (27.0-34.0); MEAN CORPUSCULAR HGB CONC 32.3 % (32.0-36.0); MONO % 14.8 % (0.0-8.0); NEUT % 55.7 % (16.0-70.0); PLATELET COUNT 203 TH/MM3 (150-450); RED BLOOD COUNT 4.57 MIL/MM3 (4.50-5.90); RED CELL DISTRIBUTION WIDTH 13.9 % (11.6-17.2); WHITE BLOOD COUNT 7.7 TH/MM3 (4.0-11.0)
--- NOTE | 2017-05-30 10:02 | RADRPT ---
EXAM DATE/TIME: 05/30/2017 09:27 [facility] COMPARISON: ABDOMEN KUB ONLY, May 29, 2017, 7:32. INDICATIONS : Renal calculi. Abdominal pain. MEDICAL HISTORY : Diabetes mellitus type II. SURGICAL HISTORY : None. ENCOUNTER: Subsequent ACUITY: 3 days PAIN SCORE: 4/10 LOCATION: Right abdomen. FINDINGS: A calcification described previously in the right ureter is no longer apparent. Gas pattern is unremarkable. CONCLUSION: Right ureteral calcification is no longer visualized. Rafa Walker MD on May 30, 2017 at 9:56 Board Certified Radiologist. This report was verified electronically.
[2017-05-30 10:19] LABS: BICARBONATE 29.7 MEQ/L (21.0-32.0); MAGNESIUM 1.8 MG/DL (1.5-2.5); POTASSIUM 4.3 MEQ/L (3.5-5.1)
[2017-05-30] MEDS: POLYETHYLENE GLYCOL 17 GM PKG PO SCH (10:42)
[2017-05-30] MEDS: DOCUSATE SODIUM 50 MG/SENNA 8.6 MG TAB PO SCH ×2 (10:42→20:36)
[2017-05-30] MEDS: PRIMIDONE 50 MG TAB PO SCH ×2 (10:43→20:36)
[2017-05-30] MEDS: ASPIRIN EC 81 MG TABEC PO SCH (10:44)
[2017-05-30] MEDS: CYCLOBENZAPRINE HCL 10 MG TAB PO SCH ×2 (10:44→20:36)
--- NOTE | 2017-05-30 12:59 | HHI.PYPN ---
Subjective Remarks Patient was seen and case discussed with nursing. Patient had a KUB this morning with a report with the right catheter no longer shows a calcification. Patient is getting Percocet and is not in any pain. Seclusive to room this morning. He denies depressed mood and denies suicidal ideation intent or plan. Objective Alert: Yes [place]: Person (O x 3), Place Mood: Calm Affect: Restricted Memory Intact: Comment (Not impaired) Hallucinations: Other (No AVH) Delusions: No Delusion Type: Other (No delusional material elicited) Suicidal: Ideation (Denies SI) Homicidal: Ideation (Denies HI) Insight/Judgment Poor Labs Test 05/30/17 08:53 White Blood Count 7.7 TH/MM3 Red Blood Count 4.57 MIL/MM3 Hemoglobin 12.6 GM/DL Hematocrit 38.9 % Mean Corpuscular Volume 85.1 FL Mean Corpuscular Hemoglobin 27.5 PG Mean Corpuscular Hemoglobin 32.3 % Concent Red Cell Distribution Width 13.9 % Platelet Count 203 TH/MM3 Mean Platelet Volume 8.8 FL Neutrophils (%) (Auto) 55.7 % Lymphocytes (%) (Auto) 20.7 % Monocytes (%) (Auto) 14.8 % Eosinophils (%) (Auto) 8.4 % Basophils (%) (Auto) 0.4 % Neutrophils # (Auto) 4.3 TH/MM3 Lymphocytes # (Auto) 1.6 TH/MM3 Monocytes # (Auto) 1.1 TH/MM3 Eosinophils # (Auto) 0.6 TH/MM3 Basophils # (Auto) 0.0 TH/MM3 CBC Comment DIFF FINAL Differential Comment Sodium Level 134 MEQ/L Potassium Level 4.3 MEQ/L Chloride Level 98 MEQ/L Carbon Dioxide Level 29.7 MEQ/L Anion Gap 6 MEQ/L Blood Urea Nitrogen 14 MG/DL Creatinine 1.66 MG/DL Estimat Glomerular Filtration 42 ML/MIN Rate Random Glucose 97 MG/DL Calcium Level 9.4 MG/DL Magnesium Level 1.8 MG/DL Vitals/IOs Vital Signs Date Time Temp Pulse Resp B/P Pulse Ox O2 Delivery O2 Flow Rate FiO2 05/30/17 06:00 98.4 77 16 123/81 92 Intake and Output 05/29/17 05/29/17 05/30/17 08:00 16:00 00:00 Intake Total 600 ml 0 ml Balance 600 ml 0 ml Assessment & Plan Problem List: (1) Adjustment disorder ICD Code: F43.20 Assessment & Plan Continue current treatment plan Justification for Cont. Inpt. Patient will decompensate in a less restrictive setting Request HC Surrog/Guard Advoc?: No Problem Qualifiers (1) Adjustment disorder: Qualified Code: F43.20 - Adjustment disorder, unspecified type Ruben Aldridge DO May 30, 2017 12:59
[2017-05-30] MEDS: LACTULOSE SYRUP 20 GM/30 ML CUP PO PRN (14:21)
--- NOTE | 2017-05-30 15:01 | HHI.PR ---
Subjective Remarks Follow-up obstructive uropathy and acute kidney injury. States he still has pain but less than yesterday. States he becomes diaphoretic when he seemed pain. No voiding issues. Still no bowel movement but passing gas. Discussed with RN Objective Vitals Vital Signs Date Time Temp Pulse Resp B/P Pulse Ox O2 Delivery O2 Flow Rate FiO2 05/30/17 06:00 98.4 77 16 123/81 92 I/O 05/29/17 05/29/17 05/29/17 05/30/17 05/30/17 05/30/17 07:00 15:00 23:00 07:00 15:00 23:00 Intake Total 600 ml 0 ml 240 ml Balance 600 ml 0 ml 240 ml Intake Oral 600 ml 0 ml 240 ml # Voids 1 1 1 Result Diagram: 05/30/1753 05/30/17852 Objective Remarks Well-nourished well-developed in mild distress due to pain Skin no rashes but diaphoretic Pupils equal and reactive to light no jaundice Regular rate and rhythm Lungs are clear no wheezes Abdomen normoactive bowel sounds soft distended nontender CVA tenderness A/P Problem List: (1) History of dementia ICD Code: Z86.59 Status: Acute (2) Insomnia ICD Code: G47.00 Status: Acute (3) COPD (chronic obstructive pulmonary disease) ICD Code: J44.9 Status: Acute (4) Constipation ICD Code: K59.00 Status: Acute Assessment and Plan Patient is a 61-year-old male with primary medical history of insomnia, anxiety , TIA, BPH, HTN who came in to the hospital for evaluation of insomnia problems. As per record, patient hasn't slept well for the last 5 days. He will try to use Ativan but it did not help him. He is now admitted to inpatient psychiatry unit for further evaluation. Consulted for medical management of nausea vomiting. Insomnia, depression, anxiety - Managed by psychiatry team Constipation. Still no bowel movement on Farrah-Colace and MiraLAX. Blood Dulcolax suppository. Consider disimpaction or Gastrografin enema Obstructive uropathy secondary to ureteral stone - Abdominal pain, right quadrant associated with nausea vomiting - Abdominal x-ray showed examination of the abdomen demonstrates air and stool throughout the colon. 4 mm calcified density overlying the right transverse process of L4. No dilated loops of bowel. No free air identified. No organomegaly is evident. Cautious structures are intact. Recommend CT which showed hydronephrosis and 5 mm ureteral stone. Status post evaluation recommended Flomax and pain management. Conservative management at this time. Strain all urine and encourage hydration Repeat x-ray shows no calcification noted Acute kidney injury secondary to obstructive uropathy. Nonoliguric. Start IV hydration and avoid nephrotoxins HTN, history - Not on any BP meds at home, we'll trend BP - Clonidine when necessary History of DM 2 - Latest hemoglobin A1 c 5.8 - Patient previously was on metformin and glimepiride. Off medications maintaining hemoglobin A1c within normal. Hx TIA, HLD, BPH, chronic pain, galucoma and dementia. Needs statin 10 year ASCVD rsik of 32.6% continue Lipitor 40 mg DVT prop ambulatory Discharge Planning Transferred to med psych floor for IV hydration secondary to acute kidney injury secondary to obstructive uropathy. Problem Qualifiers (1) Insomnia: Qualified Code: G47.00 - Insomnia, unspecified type Raúl Davies MD May 30, 2017 15:01
[2017-05-30] MEDS: BISACODYL 10 MG SUPP RECTAL SCH (15:24)
[2017-05-30 18:00] VITALS: BP 121/80; PULSE 83; RESP 18; TEMP 97; O2SAT 96
[2017-05-30] MEDS: GABAPENTIN 300 MG CAP PO SCH (20:36)
[2017-05-30] MEDS: TAMSULOSIN HCL 0.4 MG CAP PO SCH (20:36)
[2017-05-30] MEDS: traZODone HCL 50 MG TAB PO SCH (20:36)
[2017-05-30] MEDS: ATORVASTATIN 40 MG TAB PO SCH (20:36)
[2017-05-30] MEDS: LATANOPROST 0.005% OPHT SOLN 2.5 ML BTL EACH EYE SCH (20:36)
[2017-05-30 22:00] VITALS: BP 119/73; PULSE 85; RESP 20; TEMP 97.4; O2SAT 98
[2017-05-30 23:00] VITALS: BP 105/58; PULSE 74; RESP 16; TEMP 97.1; O2SAT 93
[2017-05-31] MEDS ORDERED: ONDANSETRON HCL 4 MG/2 ML VIAL IV PUSH PRN (02:00)
[2017-05-31 03:00] VITALS: BP 131/77; PULSE 76; RESP 16; TEMP 96.9; O2SAT 96
[2017-05-31] MEDS: oxyCODONE/ACETAMINOPHEN 5 MG/325 MG TAB PO PRN ×2 (04:05→08:39)
[2017-05-31 06:00] VITALS: BP 114/70; PULSE 77; RESP 18; TEMP 98.2; O2SAT 93
[2017-05-31] MEDS: SODIUM CHLOR 0.9% 1000 ML INJ 1,000 ML IV SCH ×3 (06:15→20:32)
[2017-05-31] MEDS: SENNOSIDES 8.6 MG TAB PO PRN (08:23)
[2017-05-31] MEDS: PRIMIDONE 50 MG TAB PO SCH ×2 (08:23→20:25)
[2017-05-31] MEDS: CYCLOBENZAPRINE HCL 10 MG TAB PO SCH ×2 (08:23→20:25)
[2017-05-31] MEDS: ASPIRIN EC 81 MG TABEC PO SCH (08:24)
[2017-05-31] MEDS: POLYETHYLENE GLYCOL 17 GM PKG PO SCH (08:24)
[2017-05-31] MEDS: DOCUSATE SODIUM 50 MG/SENNA 8.6 MG TAB PO SCH ×2 (08:24→20:25)
[2017-05-31] MEDS: TIMOLOL MALEATE 0.5% OPHT SOLN 5 ML BTL EACH EYE SCH ×2 (08:24→20:26)
[2017-05-31] MEDS: BISACODYL 10 MG SUPP RECTAL SCH (08:24)
[2017-05-31] MEDS: LACTULOSE SYRUP 20 GM/30 ML CUP PO PRN (10:47)
[2017-05-31 12:55] LABS: BICARBONATE 27.2 MEQ/L (21.0-32.0); MAGNESIUM 1.8 MG/DL (1.5-2.5)
--- NOTE | 2017-05-31 12:55 | HHI.PYPN ---
Subjective Remarks She was intubated for psychiatric reevaluation, patient reports feeling a little better, but still depressed, with low energy, fatigue during the day, suicidal thoughts, but no plan, difficulty sleeping at night. As per nurses patient has been isolated, poorly interactive and have a hard time to sleep at night. Patient is oriented 3, but seems to be a little bit confused. No agitation, aggressive behavior, paranoia, hostility reported. Compliant with medications,and medical side effects. Review of Systems Other No somatic complaints Objective Alert: Yes [place]: Person (O x 3), Place Mood: Calm Affect: Restricted Memory Intact: Comment (Not impaired) Hallucinations: Other (No AVH) Delusions: No Delusion Type: Other (No delusional material elicited) Suicidal: Ideation (suicidal thoughts, no plan) Homicidal: Ideation (Denies HI) Insight/Judgment Poor Vitals/IOs Vital Signs Date Time Temp Pulse Resp B/P Pulse Ox O2 Delivery O2 Flow Rate FiO2 05/31/17 06:00 98.2 77 18 114/70 93 Intake and Output 05/30/17 05/30/17 05/31/17 08:00 16:00 00:00 Intake Total 240 ml 840 ml Balance 240 ml 840 ml Assessment & Plan Problem List: (1) Adjustment disorder Assessment & Plan: Patient continues to show symptoms of depression, slight improvement, reports difficulty sleeping at night. Continue trazodone 100 and add hydroxyzine 50 At bedtime to help with sleep. ICD Code: F43.20 Assessment & Plan Estimated LOS: days Justification for Cont. Inpt. Patient has an increased risk of decompensation at a lower level of care. Request HC Surrog/Guard Advoc?: No Problem Qualifiers (1) Adjustment disorder: Qualified Code: F43.20 - Adjustment disorder, unspecified type Peng Ashley MD May 31, 2017 12:55
--- NOTE | 2017-05-31 14:19 | HHI.PR ---
Subjective Remarks Follow-up acute kidney injury and constipation. Denies voiding issues. He is now passing gas with small liquid stool. States he had rectal exam which did not reveal impaction. Improving right lower quadrant pain. No radiation. Patient understands narcotic over discontinue secondary to constipation. Discussed with RN Objective Vitals Vital Signs Date Time Temp Pulse Resp B/P Pulse Ox O2 Delivery O2 Flow Rate FiO2 05/31/17 06:00 98.2 77 18 114/70 93 05/31/17 03:00 96.9 76 16 131/77 96 05/30/17 23:00 97.1 74 16 105/58 93 05/30/17 22:00 97.4 85 20 119/73 98 05/30/17 18:00 97.0 83 18 121/80 96 I/O 05/30/17 05/30/17 05/30/17 05/31/17 05/31/17 05/31/17 06:59 14:59 22:59 06:59 14:59 22:59 Intake Total 240 ml 840 ml 1449 ml 480 ml Output Total 50 ml Balance 240 ml 840 ml 1399 ml 480 ml Intake Oral 240 ml 840 ml 360 ml 480 ml IV Total 1089 ml Emesis 50 ml # Voids 1 1 2 Result Diagram: 05/30/17 0853 05/31/17 1144 Imaging Last Impressions Abdomen X-Ray 05/30/17 0600 Signed Impressions: Service Date/Time: Tuesday, May 30, 2017 09:27 - CONCLUSION: Right ureteral calcification is no longer visualized. Rafa Walker MD Abdomen/Pelvis CT 05/27/17 0000 Signed Impressions: Service Date/Time: May 21:53 - CONCLUSION: Moderate hydronephrosis the right kidney due to an approximate 5 mm distal ureteral stone. Fco Sharma MD Objective Remarks Well-nourished well-developed in no distress Skin no rashes not diaphoretic Pupils equal and reactive to light no jaundice Regular rate and rhythm Lungs are clear no wheezes Abdomen normoactive bowel sounds soft distended nontender No CVA tenderness Awake and alert nonfocal A/P Problem List: (1) History of dementia ICD Code: Z86.59 Status: Acute (2) Insomnia ICD Code: G47.00 Status: Acute (3) COPD (chronic obstructive pulmonary disease) ICD Code: J44.9 Status: Acute (4) Constipation ICD Code: K59.00 Status: Acute Assessment and Plan Patient is a 61-year-old male with primary medical history of insomnia, anxiety , TIA, BPH, HTN who came in to the hospital for evaluation of insomnia problems. As per record, patient hasn't slept well for the last 5 days. He will try to use Ativan but it did not help him. He is now admitted to inpatient psychiatry unit for further evaluation. Consulted for medical management of nausea vomiting. Insomnia, depression, anxiety - Managed by psychiatry team Constipation. Improving passing flatus but only have small liquid BM. Add lactulose to Farrah-Colace and MiraLAX. Consider Gastrografin enema Obstructive uropathy secondary to ureteral stone. Improved patient passed stone. Repeat KUB showed calcification no longer present. Status post evaluation Acute kidney injury secondary to obstructive uropathy. Nonoliguric. Slowly improving continue IV hydration and avoid nephrotoxins. Repeat BMP and mag in the morning. Check CK HTN, history - Not on any BP meds at home, we'll trend BP - Clonidine when necessary History of DM 2 - Latest hemoglobin A1 c 5.8 - Patient previously was on metformin and glimepiride. Off medications maintaining hemoglobin A1c within normal. Hx TIA, HLD, BPH, chronic pain, galucoma and dementia. Needs statin 10 year ASCVD rsik of 32.6% continue Lipitor 40 mg DVT prop ambulatory Discharge Planning Not ready to be transferred out Problem Qualifiers (1) Insomnia: Qualified Code: G47.00 - Insomnia, unspecified type Raúl Davies MD May 31, 2017 14:19
[2017-05-31] MEDS ORDERED: hydrOXYzine HCL 50 MG TAB PO ONE (15:00)
[2017-05-31] MEDS: LACTULOSE SYRUP 20 GM/30 ML CUP PO SCH (16:54)
[2017-05-31 18:00] VITALS: BP 153/92; PULSE 94; RESP 20; TEMP 100.2; O2SAT 97
[2017-05-31] MEDS: ACETAMINOPHEN 325 MG TAB PO PRN (18:28)
[2017-05-31] MEDS: LATANOPROST 0.005% OPHT SOLN 2.5 ML BTL EACH EYE SCH (20:23)
[2017-05-31] MEDS: GABAPENTIN 300 MG CAP PO SCH (20:24)
[2017-05-31] MEDS: ATORVASTATIN 40 MG TAB PO SCH (20:25)
[2017-05-31] MEDS: TAMSULOSIN HCL 0.4 MG CAP PO SCH (20:25)
[2017-05-31] MEDS: traZODone HCL 50 MG TAB PO SCH (20:26)
[2017-05-31] MEDS ORDERED: hydrOXYzine HCL 50 MG TAB PO SCH (21:00)
[2017-05-31 23:04] VITALS: BP 120/67; PULSE 82; RESP 18; TEMP 98.1; O2SAT 93
[2017-06-01 06:19] VITALS: BP 143/72; PULSE 82; RESP 18; TEMP 99.2; O2SAT 94
[2017-06-01] MEDS: POLYETHYLENE GLYCOL 17 GM PKG PO SCH (08:31)
[2017-06-01] MEDS: CYCLOBENZAPRINE HCL 10 MG TAB PO SCH ×2 (08:31→21:00)
[2017-06-01] MEDS: LACTULOSE SYRUP 20 GM/30 ML CUP PO SCH ×3 (08:31→17:00)
[2017-06-01] MEDS: TIMOLOL MALEATE 0.5% OPHT SOLN 5 ML BTL EACH EYE SCH ×2 (08:32→21:00)
[2017-06-01] MEDS: ASPIRIN EC 81 MG TABEC PO SCH (08:32)
[2017-06-01] MEDS: PRIMIDONE 50 MG TAB PO SCH ×2 (08:32→21:00)
[2017-06-01] MEDS: DOCUSATE SODIUM 50 MG/SENNA 8.6 MG TAB PO SCH ×2 (08:32→21:00)
[2017-06-01] MEDS: BISACODYL 10 MG SUPP RECTAL SCH (09:00)
[2017-06-01] MEDS: SODIUM CHLOR 0.9% 1000 ML INJ 1,000 ML IV SCH ×2 (12:15→22:15)
[2017-06-01 15:09] LABS: MAGNESIUM 1.6 MG/DL (1.5-2.5); POTASSIUM 3.9 MEQ/L (3.5-5.1)
--- NOTE | 2017-06-01 15:37 | HHI.PYPN ---
Subjective Remarks Patient seen today for psychiatric evaluation, patient continues to be hypoactive, seems to be distant, guarded, alternating episodes of confusion with lucidity. Patient reports better mood today, but continues having difficulty sleeping, decreased energy, decreased level of concentration and feeling very fatigued. Patient denies suicidal or homicidal ideation, he denies visual and auditory hallucinations. On cognitive tests patient is disoriented in place, actually oriented in time. He has been compliant with medications, no significant side effects of far. No agitation, no aggressive behavior. Review of Systems Other No somatic complaints Objective Alert: Yes [place]: Person (O x 3) Mood: Calm Affect: Restricted Memory Intact: Comment (Not impaired) Hallucinations: Other (No AVH) Delusions: No Delusion Type: Other (No delusional material elicited) Suicidal: Ideation (suicidal thoughts, no plan) Homicidal: Ideation (Denies HI) Insight/Judgment Fair Labs Test 06/01/17 13:49 Sodium Level 134 MEQ/L Potassium Level 3.9 MEQ/L Chloride Level 99 MEQ/L Carbon Dioxide Level 26.0 MEQ/L Anion Gap 9 MEQ/L Blood Urea Nitrogen 12 MG/DL Creatinine 1.45 MG/DL Estimat Glomerular Filtration 49 ML/MIN Rate Random Glucose 121 MG/DL Calcium Level 8.8 MG/DL Magnesium Level 1.6 MG/DL Vitals/IOs Vital Signs Date Time Temp Pulse Resp B/P Pulse Ox O2 Delivery O2 Flow Rate FiO2 06/01/17 06:19 99.2 82 18 143/72 94 Intake and Output 05/31/17 05/31/17 05/31/17 07:59 15:59 23:59 Intake Total 1449 ml 1233 ml 480 ml Output Total 50 ml Balance 1399 ml 1233 ml 480 ml Assessment & Plan Problem List: (1) Adjustment disorder ICD Code: F43.20 (2) Delirium due to another medical condition Assessment & Plan: Will add Seroquel 25 mg twice a day to help with confusion and delirium symptoms. Monitor vital signs. Continue CIWA for potential benzodiazepines withdrawal. ICD Code: F05 Assessment & Plan Estimated LOS: days Justification for Cont. Inpt. Patient has an elevated risk to decompensate at a lower level of care. Request HC Surrog/Guard Advoc?: No Problem Qualifiers (1) Adjustment disorder: Qualified Code: F43.20 - Adjustment disorder, unspecified type Peng Ashley MD Jun 01, 2017 15:37
[2017-06-01 17:41] VITALS: BP 161/92; PULSE 86; RESP 18; TEMP 97.9; O2SAT 98
--- NOTE | 2017-06-01 18:15 | HHI.PR ---
Subjective Remarks Written by Talita Templeton, acting as scribe for Dr. Seth on 06/01/17 at 18:11. Follow-up acute kidney injury and constipation. Denies voiding issues. Reports no having bowel movements abdominal pain has resolved. Offers no other complaints at this time denies chest pain shortness of breath nausea vomiting. Objective Vitals Vital Signs Date Time Temp Pulse Resp B/P Pulse Ox O2 Delivery O2 Flow Rate FiO2 06/01/17 17:41 97.9 86 18 161/92 98 06/01/17 06:19 99.2 82 18 143/72 94 05/31/17 23:04 98.1 82 18 120/67 93 I/O 05/31/17 05/31/17 05/31/17 06/01/17 06/01/17 06/01/17 07:00 15:00 23:00 07:00 15:00 23:00 Intake Total 1449 ml 480 ml 1233 ml 240 ml 2160 ml 960 ml Output Total 50 ml Balance 1399 ml 480 ml 1233 ml 240 ml 2160 ml 960 ml Intake Oral 360 ml 480 ml 480 ml 240 ml 2160 ml 960 ml IV Total 1089 ml 753 ml Emesis 50 ml # Voids 1 2 3 3 # Bowel Movements 2 Result Diagram: 05/30/17 0853 06/01/17 1349 Imaging Last Impressions Abdomen X-Ray 05/30/17 0600 Signed Impressions: Service Date/Time: Tuesday, May 30, 2017 09:27 - CONCLUSION: Right ureteral calcification is no longer visualized. Rafa Walker MD Abdomen/Pelvis CT 05/27/17 0000 Signed Impressions: Service Date/Time: May 21:53 - CONCLUSION: Moderate hydronephrosis the right kidney due to an approximate 5 mm distal ureteral stone. Fco Sharma MD Objective Remarks Well-nourished well-developed in no distress Skin no rashes not diaphoretic Pupils equal and reactive to light no jaundice Regular rate and rhythm Lungs are clear no wheezes Abdomen normoactive bowel sounds soft distended nontender No CVA tenderness Awake and alert nonfocal A/P Problem List: (1) History of dementia ICD Code: Z86.59 Status: Acute (2) Insomnia ICD Code: G47.00 Status: Acute (3) COPD (chronic obstructive pulmonary disease) ICD Code: J44.9 Status: Acute (4) Constipation ICD Code: K59.00 Status: Acute Assessment and Plan Patient is a 61-year-old male with primary medical history of insomnia, anxiety , TIA, BPH, HTN who came in to the hospital for evaluation of insomnia problems. As per record, patient hasn't slept well for the last 5 days. He will try to use Ativan but it did not help him. He is now admitted to inpatient psychiatry unit for further evaluation. Consulted for medical management of nausea vomiting. Insomnia, depression, anxiety - Managed by psychiatry team Constipation- resolved Improving passing flatus and stool. lactulose to Farrah- Colace and MiraLAX. Obstructive uropathy secondary to ureteral stone. Improved patient passed stone. Repeat KUB showed calcification no longer present. Status post evaluation Acute kidney injury secondary to obstructive uropathy- resolved Improving avoid nephrotoxins. HTN, history - Not on any BP meds at home, we'll trend BP - Clonidine when necessary History of DM 2 - Latest hemoglobin A1 c 5.8 - Patient previously was on metformin and glimepiride. Off medications maintaining hemoglobin A1c within normal. Hx TIA, HLD, BPH, chronic pain, galucoma and dementia. Needs statin 10 year ASCVD rsik of 32.6% continue Lipitor 40 mg DVT prop ambulatory Patient medically stable to transfer to psychiatric floor or to be discharged per medicine standpoint This note was transcribed by scribe [Talita Templeton]. I, Dr. Nelly Seth personally performed the history, physical exam, and medical decision making; and confirmed the accuracy of the information in the transcribed note. Authenticated by Dr. Nelly Seth on 06/01/17 at 1810. Problem Qualifiers (1) Insomnia: Qualified Code: G47.00 - Insomnia, unspecified type Talita Templeton Jun 01, 2017 18:15 Nelly Seth MD Jun 01, 2017 19:15
[2017-06-01] MEDS: TAMSULOSIN HCL 0.4 MG CAP PO SCH (21:00)
[2017-06-01] MEDS: ATORVASTATIN 40 MG TAB PO SCH (21:00)
[2017-06-01] MEDS: LATANOPROST 0.005% OPHT SOLN 2.5 ML BTL EACH EYE SCH (21:00)
[2017-06-01] MEDS: traZODone HCL 50 MG TAB PO SCH (21:00)
[2017-06-01] MEDS: GABAPENTIN 300 MG CAP PO SCH (21:00)
[2017-06-02 06:01] VITALS: BP 156/78; PULSE 86; RESP 18; TEMP 98.4; O2SAT 96
[2017-06-02] MEDS: SODIUM CHLOR 0.9% 1000 ML INJ 1,000 ML IV SCH ×2 (08:15→18:15)
[2017-06-02] MEDS: TIMOLOL MALEATE 0.5% OPHT SOLN 5 ML BTL EACH EYE SCH ×2 (08:47→20:43)
[2017-06-02] MEDS: ASPIRIN EC 81 MG TABEC PO SCH (08:47)
[2017-06-02] MEDS: PRIMIDONE 50 MG TAB PO SCH ×2 (08:48→20:43)
[2017-06-02] MEDS: LACTULOSE SYRUP 20 GM/30 ML CUP PO SCH ×3 (08:48→16:22)
[2017-06-02] MEDS: POLYETHYLENE GLYCOL 17 GM PKG PO SCH (08:48)
[2017-06-02] MEDS: QUEtiapine FUMARATE 25 MG TAB PO SCH ×2 (08:48→12:00)
[2017-06-02] MEDS: DOCUSATE SODIUM 50 MG/SENNA 8.6 MG TAB PO SCH ×2 (08:48→20:44)
[2017-06-02] MEDS: CYCLOBENZAPRINE HCL 10 MG TAB PO SCH (08:48)
[2017-06-02] MEDS: BISACODYL 10 MG SUPP RECTAL SCH (08:49)
--- NOTE | 2017-06-02 09:51 | HHI.PR ---
Subjective Remarks Follow-up acute kidney injury and constipation. Denies voiding issues. Reports having multiple bowel movements yesterday. Abdominal pain has resolved. Offers no other complaints at this time denies chest pain shortness of breath nausea vomiting. appears fatigued and confused- patient able to awake and verbalize name place and month but not year. Patient drifts off to sleep during conversation. Objective Vitals Vital Signs Date Time Temp Pulse Resp B/P Pulse Ox O2 Delivery O2 Flow Rate FiO2 06/02/17 06:01 98.4 86 18 156/78 96 06/01/17 17:41 97.9 86 18 161/92 98 I/O 06/01/17 06/01/17 06/01/17 06/02/17 06/02/17 06/02/17 07:00 15:00 23:00 07:00 15:00 23:00 Intake Total 240 ml 2160 ml 1800 ml 360 ml 240 ml Balance 240 ml 2160 ml 1800 ml 360 ml 240 ml Intake Oral 240 ml 2160 ml 1800 ml 360 ml 240 ml # Voids 3 4 4 Result Diagram: 05/30/17 0853 06/01/17 1349 Objective Remarks Well-nourished well-developed. appears fatigued and confused- patient able to awake and verbalize name place and month but not year. Patient drifts off to sleep during conversation. Skin no rashes not diaphoretic extraocular movements intact Regular rate and rhythm Lungs are clear no wheezes Abdomen normoactive bowel sounds soft distended nontender No CVA tenderness appears fatigued and confused- patient able to awake and verbalize name place and month but not year. Patient drifts off to sleep during conversation. no focal deficits noted A/P Problem List: (1) History of dementia ICD Code: Z86.59 Status: Acute (2) Insomnia ICD Code: G47.00 Status: Acute (3) COPD (chronic obstructive pulmonary disease) ICD Code: J44.9 Status: Acute (4) Constipation ICD Code: K59.00 Status: Acute Assessment and Plan Patient is a 61-year-old male with primary medical history of insomnia, anxiety , TIA, BPH, HTN who came in to the hospital for evaluation of insomnia problems. As per record, patient hasn't slept well for the last 5 days. He will try to use Ativan but it did not help him. He is now admitted to inpatient psychiatry unit for further evaluation. Consulted for medical management of nausea vomiting. Confusion- stat CBC and BMP Patient received atarax and trazodone last night and Seroquel this AM recommend holding/reducing sedating medication- will defer to psych adjustment of psychiatric medications serial neuro checks Insomnia, depression, anxiety - Managed by psychiatry team Constipation- resolved Improving passing flatus and stool. lactulose to Farrah- Colace and MiraLAX. Obstructive uropathy secondary to ureteral stone. Improved patient passed stone. Repeat KUB showed calcification no longer present. Status post evaluation Acute kidney injury secondary to obstructive uropathy- resolved Improving avoid nephrotoxins. HTN, history - Not on any BP meds at home, we'll trend BP - Clonidine when necessary History of DM 2 - Latest hemoglobin A1 c 5.8 - Patient previously was on metformin and glimepiride. Off medications maintaining hemoglobin A1c within normal. Hx TIA, HLD, BPH, chronic pain, galucoma and dementia. Needs statin 10 year ASCVD risk of 32.6% continue Lipitor 40 mg DVT prop ambulatory Discussed with nurse, patient and Dr. Seth Problem Qualifiers (1) Insomnia: Qualified Code: G47.00 - Insomnia, unspecified type Talita Templeton Jun 02, 2017 09:51
--- NOTE | 2017-06-02 11:08 | HHI.PYPN ---
Subjective Remarks Patient seen today for psychiatric reevaluation, patient continues to be hypoactive, isolated in the unit, with marked psychomotor retardation and flat affect, with episodic confusion and disorientation, but periods of lucidity. At the moment of the evaluation the patient is a sleeping, but easily arousable , he reports better sleep at night, reports that he feels better, but statements are vague and inconsistent. He denies suicidal and homicidal ideation, he denies visual and auditory hallucinations. At the moment of this evaluation patient is oriented 3, but seems to be internally preoccupied. As per nurse in charge patient was found this morning naked in his room, believing he was in a motel. Review of Systems Psychiatric: COMPLAINS OF: Confusion, Depression Objective Alert: Yes [place]: Person (O x 3), Place, Date Mood: Calm Affect: Flat Memory Intact: Comment (Not impaired) Hallucinations: Other (No AVH) Delusions: No Delusion Type: Other (No delusional material elicited) Suicidal: Ideation (suicidal thoughts, no plan) Homicidal: Ideation (Denies HI) Insight/Judgment Poor Labs Test 06/01/17 13:49 Sodium Level 134 MEQ/L Potassium Level 3.9 MEQ/L Chloride Level 99 MEQ/L Carbon Dioxide Level 26.0 MEQ/L Anion Gap 9 MEQ/L Blood Urea Nitrogen 12 MG/DL Creatinine 1.45 MG/DL Estimat Glomerular Filtration 49 ML/MIN Rate Random Glucose 121 MG/DL Calcium Level 8.8 MG/DL Magnesium Level 1.6 MG/DL Vitals/IOs Vital Signs Date Time Temp Pulse Resp B/P Pulse Ox O2 Delivery O2 Flow Rate FiO2 06/02/17 06:01 98.4 86 18 156/78 96 Intake and Output 06/01/17 06/01/17 06/02/17 08:00 16:00 00:00 Intake Total 240 ml 2160 ml 1800 ml Balance 240 ml 2160 ml 1800 ml Assessment & Plan Problem List: (1) Adjustment disorder ICD Code: F43.20 (2) Delirium due to another medical condition Assessment & Plan: Patient continues to be showing symptoms of mood and confusion. Patient has fluctuating level of consciousness alternated with periods of lucidity. I will communicate with medicine to restart full workup of delirium. Persistent benzodiazepine/barbiturate withdrawal is possible. Continue close monitoring of behavior, mood, mental status and vital signs. Will discontinue deliriogenic medications, Flexeril and anticholinergics. Continue current psychotropics. ICD Code: F05 Assessment & Plan Estimated LOS: days Justification for Cont. Inpt. Patient is to continue psychiatric hospitalization for stabilization. Request HC Surrog/Guard Advoc?: No Problem Qualifiers (1) Adjustment disorder: Qualified Code: F43.20 - Adjustment disorder, unspecified type Peng Ashley MD Jun 02, 2017 11:08
[2017-06-02 11:20] LABS: AUTOMATED NEUTROPHIL # 3.5 TH/MM3 (1.8-7.7); BASOPHIL % 0.2 % (0.0-2.0); EOSINOPHIL # 0.4 TH/MM3 (0-0.4); EOSINOPHIL % 6.8 % (0.0-4.0); HEMATOCRIT 32.8 % (39.0-51.0); HEMO FLAGS DIFF FINAL; LYMPH % 18.6 % (9.0-44.0); LYMPHOCYTE # 1.1 TH/MM3 (1.0-4.8); MEAN CELL VOLUME 82.8 FL (80.0-100.0); MEAN CORPUSCULAR HEMOGLOBIN 28.3 PG (27.0-34.0); MEAN CORPUSCULAR HGB CONC 34.1 % (32.0-36.0); MONO % 17.7 % (0.0-8.0); NEUT % 56.7 % (16.0-70.0); PLATELET COUNT 222 TH/MM3 (150-450); RED BLOOD COUNT 3.96 MIL/MM3 (4.50-5.90); RED CELL DISTRIBUTION WIDTH 13.5 % (11.6-17.2); WHITE BLOOD COUNT 6.1 TH/MM3 (4.0-11.0)
[2017-06-02 11:39] LABS: ALT (GPT) 13 U/L (12-78); ANION GAP 10 MEQ/L (5-15); AST (GOT) 12 U/L (15-37); BICARBONATE 26.1 MEQ/L (21.0-32.0); BLOOD UREA NITROGEN 8 MG/DL (7-18); CHLORIDE 103 MEQ/L (98-107); GLOMERULAR FILTRATION RATE 48 ML/MIN (>89); POTASSIUM 3.8 MEQ/L (3.5-5.1); SODIUM (NA) 139 MEQ/L (136-145)
[2017-06-02 11:41] LABS: ALKALINE PHOSPHATASE 103 U/L (45-117); TOTAL BILIRUBIN ADULT 0.4 MG/DL (0.2-1.0)
[2017-06-02 18:02] VITALS: BP 141/86; PULSE 84; RESP 16; TEMP 98.9; O2SAT 97
[2017-06-02] MEDS: GABAPENTIN 300 MG CAP PO SCH (20:43)
[2017-06-02] MEDS: LATANOPROST 0.005% OPHT SOLN 2.5 ML BTL EACH EYE SCH (20:43)
[2017-06-02] MEDS: TAMSULOSIN HCL 0.4 MG CAP PO SCH (20:44)
[2017-06-02] MEDS: traZODone HCL 50 MG TAB PO SCH (20:44)
[2017-06-02] MEDS: ATORVASTATIN 40 MG TAB PO SCH (20:44)
[2017-06-03] MEDS: SODIUM CHLOR 0.9% 1000 ML INJ 1,000 ML IV SCH ×3 (03:21→23:37)
[2017-06-03 06:06] VITALS: BP 156/85; PULSE 83; RESP 18; TEMP 98.1; O2SAT 97
[2017-06-03] MEDS: TIMOLOL MALEATE 0.5% OPHT SOLN 5 ML BTL EACH EYE SCH ×2 (08:05→20:41)
[2017-06-03] MEDS: ASPIRIN EC 81 MG TABEC PO SCH (08:05)
[2017-06-03] MEDS: LACTULOSE SYRUP 20 GM/30 ML CUP PO SCH ×3 (08:05→16:47)
[2017-06-03] MEDS: POLYETHYLENE GLYCOL 17 GM PKG PO SCH (08:06)
[2017-06-03] MEDS: PRIMIDONE 50 MG TAB PO SCH ×2 (08:06→20:40)
[2017-06-03] MEDS: QUEtiapine FUMARATE 25 MG TAB PO SCH (08:07)
[2017-06-03] MEDS: DOCUSATE SODIUM 50 MG/SENNA 8.6 MG TAB PO SCH ×2 (08:07→20:40)
[2017-06-03] MEDS: BISACODYL 10 MG SUPP RECTAL SCH (08:07)
--- NOTE | 2017-06-03 10:22 | HHI.PR ---
Subjective Remarks Follow-up confusion, acute kidney injury and constipation. Denies voiding issues. Reports having formed BM yesterday. Denies abdominal pain. Offers no other complaints at this time denies chest pain shortness of breath nausea vomiting. Psychiatry has adjusted medication and patient more alert today Objective Vitals Vital Signs Date Time Temp Pulse Resp B/P Pulse Ox O2 Delivery O2 Flow Rate FiO2 06/03/17 06:06 98.1 83 18 156/85 97 06/02/17 18:02 98.9 84 16 141/86 97 I/O 06/02/17 06/02/17 06/02/17 06/03/17 06/03/17 06/03/17 07:00 15:00 23:00 07:00 15:00 23:00 Intake Total 360 ml 840 ml 1360 ml 240 ml 960 ml Balance 360 ml 840 ml 1360 ml 240 ml 960 ml Intake Oral 360 ml 240 ml 960 ml 240 ml 960 ml IV Total 600 ml 400 ml # Voids 4 2 3 Result Diagram: 06/02/17 1036 06/02/17 1036 Objective Remarks Well-nourished well-developed. in no acute distress Skin no rashes not diaphoretic extraocular movements intact Regular rate and rhythm Lungs are clear no wheezes Abdomen normoactive bowel sounds soft distended nontender No CVA tenderness A&O to person place and time at this time per nurse orientation waxes and wanes A/P Problem List: (1) History of dementia ICD Code: Z86.59 Status: Acute (2) Insomnia ICD Code: G47.00 Status: Acute (3) COPD (chronic obstructive pulmonary disease) ICD Code: J44.9 Status: Acute (4) Constipation ICD Code: K59.00 Status: Acute Assessment and Plan Patient is a 61-year-old male with primary medical history of insomnia, anxiety , TIA, BPH, HTN who came in to the hospital for evaluation of insomnia problems. As per record, patient hasn't slept well for the last 5 days. He will try to use Ativan but it did not help him. He is now admitted to inpatient psychiatry unit for further evaluation. Consulted for medical management of nausea vomiting. Confusion- Improving Labs reviewed per psychiatry: Will discontinue deliriogenic medications, Flexeril and anticholinergics. Continue current psychotropics. Insomnia, depression, anxiety - Managed by psychiatry team Constipation- resolved Improving passing flatus and stool. lactulose to Farrah- Colace and MiraLAX. Obstructive uropathy secondary to ureteral stone. Improved patient passed stone. Repeat KUB showed calcification no longer present. Status post evaluation Acute kidney injury secondary to obstructive uropathy- resolved Improving avoid nephrotoxins. HTN, history - Not on any BP meds at home, we'll trend BP - Clonidine when necessary History of DM 2 - Latest hemoglobin A1 c 5.8 - Patient previously was on metformin and glimepiride. Off medications maintaining hemoglobin A1c within normal. Hx TIA, HLD, BPH, chronic pain, glaucoma and dementia. Needs statin 10 year ASCVD risk of 32.6% continue Lipitor 40 mg DVT prop ambulatory Discussed with nurse, patient and Dr. Seth This is a shared visit patient evaluated by myself as well as Dr. Seth. Per medical standpoint patient may be transferred to psychiatric floor or DC Attending Statement The exam, history, and the medical decision-making described in the above note were completed with the assistance of the mid-level provider. I reviewed and agree with the findings presented. I attest that I had a [id number] encounter with the patient on the same day, and personally performed and documented my assessment and findings in the medical record. Patient doing ok GENERAL: This is a well-nourished, well-developed patient, in no apparent distress. CARDIOVASCULAR: Normal rate and regular rhythm 2/6 EMIL RESPIRATORY: Good respiratory efforts. Breath sounds equal and clear to auscultation bilaterally. Patient doing well. Medically cleared for transfer to psych or DC. Problem Qualifiers (1) Insomnia: Qualified Code: G47.00 - Insomnia, unspecified type Talita Templeton Jun 03, 2017 10:22 Nelly Seth MD Jun 03, 2017 14:29
--- NOTE | 2017-06-03 11:36 | HHI.PYPN ---
Subjective Remarks Patient seen today for psychiatric reevaluation, patient has a little bit of a brighter affect, he reports feeling better, but still presenting a pronounced psychomotor retardation, isolation in the unit, he seems to be objectively melancholic and depressed. Patient is still having difficulty sleeping at night. Today oriented 3, able to recognize me, no confusion or fluctuation of consciousness are observed or reported in the last 24 hours. Patient denies suicidal or homicidal ideation, he denies visual and auditory hallucinations. Review of Systems Other No somatic complaints Objective Alert: Yes [place]: Person (O x 3), Place, Date Mood: Depressed Affect: Flat Memory Intact: Comment (Not impaired) Hallucinations: Other (No AVH) Delusions: No Delusion Type: Other (No delusional material elicited) Suicidal: Ideation (suicidal thoughts, no plan) Homicidal: Ideation (Denies HI) Insight/Judgment Fair Vitals/IOs Vital Signs Date Time Temp Pulse Resp B/P Pulse Ox O2 Delivery O2 Flow Rate FiO2 06/03/17 06:06 98.1 83 18 156/85 97 Intake and Output 06/02/17 06/02/17 06/03/17 08:00 16:00 00:00 Intake Total 360 ml 840 ml 1360 ml Balance 360 ml 840 ml 1360 ml Assessment & Plan Problem List: (1) Adjustment disorder ICD Code: F43.20 (2) Delirium due to another medical condition ICD Code: F05 (3) Major depressive disorder, single episode Assessment & Plan: Patient presents depressed mood, per no psychomotor retardation, insomnia at night, low level of energy and appetite. Will increase Seroquel to 100 mg at bedtime to help with sleep and also with depression, we will start Wellbutrin 75 mg twice a day for depressive symptoms. Also will order a consult for PT and OT. ICD Code: F32.9 Assessment & Plan Estimated LOS: days Justification for Cont. Inpt. Patient has an increased risk to decompensate at a lower level of care. Request HC Surrog/Guard Advoc?: No Problem Qualifiers (1) Adjustment disorder: Qualified Code: F43.20 - Adjustment disorder, unspecified type Peng Ashley MD Jun 03, 2017 11:36
[2017-06-03 18:04] VITALS: BP 156/92; PULSE 82; RESP 16; TEMP 98.2; O2SAT 100
[2017-06-03 20:07] VITALS: TEMP 98.2
[2017-06-03] MEDS: ATORVASTATIN 40 MG TAB PO SCH (20:40)
[2017-06-03] MEDS: buPROPion HCL 75 MG TAB PO SCH (20:40)
[2017-06-03] MEDS: QUEtiapine FUMARATE 100 MG TAB PO SCH (20:40)
[2017-06-03] MEDS: GABAPENTIN 300 MG CAP PO SCH (20:40)
[2017-06-03] MEDS: TAMSULOSIN HCL 0.4 MG CAP PO SCH (20:40)
[2017-06-03] MEDS: LATANOPROST 0.005% OPHT SOLN 2.5 ML BTL EACH EYE SCH (20:41)
[2017-06-03] MEDS: traZODone HCL 50 MG TAB PO SCH (20:44)
[2017-06-04 05:48] VITALS: BP 148/70; PULSE 85; RESP 15; TEMP 99.6; O2SAT 94
[2017-06-04] MEDS: LACTULOSE SYRUP 20 GM/30 ML CUP PO SCH ×3 (07:31→18:00)
[2017-06-04] MEDS: ASPIRIN EC 81 MG TABEC PO SCH (07:31)
[2017-06-04] MEDS: TIMOLOL MALEATE 0.5% OPHT SOLN 5 ML BTL EACH EYE SCH ×2 (07:31→21:14)
[2017-06-04] MEDS: POLYETHYLENE GLYCOL 17 GM PKG PO SCH (07:32)
[2017-06-04] MEDS: DOCUSATE SODIUM 50 MG/SENNA 8.6 MG TAB PO SCH ×2 (07:33→21:15)
[2017-06-04] MEDS: PRIMIDONE 50 MG TAB PO SCH ×2 (07:33→21:15)
[2017-06-04] MEDS: BISACODYL 10 MG SUPP RECTAL SCH (07:34)
[2017-06-04] MEDS: buPROPion HCL 75 MG TAB PO SCH ×2 (07:34→21:14)
[2017-06-04 11:20] LABS: HEMATOCRIT 38.8 % (39.0-51.0); MEAN CELL VOLUME 83.8 FL (80.0-100.0); MEAN CORPUSCULAR HEMOGLOBIN 27.8 PG (27.0-34.0); MEAN CORPUSCULAR HGB CONC 33.2 % (32.0-36.0); PLATELET COUNT 300 TH/MM3 (150-450); RED BLOOD COUNT 4.63 MIL/MM3 (4.50-5.90); REVIEW FLAG FINAL; WHITE BLOOD COUNT 6.3 TH/MM3 (4.0-11.0)
--- NOTE | 2017-06-04 11:29 | HHI.PR ---
Subjective Remarks Follow-up confusion, acute kidney injury and constipation. Denies voiding issues. Reports having formed BM once a day for the past 3 days. Denies abdominal pain. Offers no other complaints at this time denies chest pain shortness of breath nausea vomiting. Psychiatry has adjusted medication and patient more alert today Objective Vitals Vital Signs Date Time Temp Pulse Resp B/P Pulse Ox O2 Delivery O2 Flow Rate FiO2 06/04/17 05:48 99.6 85 15 148/70 94 06/03/17 20:07 98.2 06/03/17 18:04 98.2 82 16 156/92 100 I/O 06/03/17 06/03/17 06/03/17 06/04/17 06/04/17 06/04/17 07:00 15:00 23:00 07:00 15:00 23:00 Intake Total 240 ml 1920 ml 660 ml 960 ml Balance 240 ml 1920 ml 660 ml 960 ml Intake Oral 240 ml 1920 ml 660 ml 960 ml # Voids 3 2 1 Result Diagram: 06/04/17 1053 06/02/17 1036 Objective Remarks Well-nourished well-developed. in no acute distress Skin no rashes not diaphoretic extraocular movements intact Regular rate and rhythm Lungs are clear no wheezes Abdomen normoactive bowel sounds soft distended nontender, soft umbilical hernia noted No CVA tenderness A&O to person place and time at this time A/P Problem List: (1) History of dementia ICD Code: Z86.59 Status: Acute (2) Insomnia ICD Code: G47.00 Status: Acute (3) COPD (chronic obstructive pulmonary disease) ICD Code: J44.9 Status: Acute (4) Constipation ICD Code: K59.00 Status: Acute Assessment and Plan Patient is a 61-year-old male with primary medical history of insomnia, anxiety , TIA, BPH, HTN who came in to the hospital for evaluation of insomnia problems. As per record, patient hasn't slept well for the last 5 days. He will try to use Ativan but it did not help him. He is now admitted to inpatient psychiatry unit for further evaluation. Consulted for medical management of nausea vomiting. Confusion- Improving Labs reviewed per psychiatry: Will discontinue deliriogenic medications, Flexeril and anticholinergics. Continue current psychotropics. Insomnia, depression, anxiety - Managed by psychiatry team Constipation- resolved Improving passing flatus and stool. lactulose to Farrah- Colace and MiraLAX. Obstructive uropathy secondary to ureteral stone. Improved patient passed stone. Repeat KUB showed calcification no longer present. Status post evaluation Acute kidney injury secondary to obstructive uropathy- resolved Improving avoid nephrotoxins. HTN, history - Not on any BP meds at home, we'll trend BP - Clonidine when necessary History of DM 2 - Latest hemoglobin A1 c 5.8 - Patient previously was on metformin and glimepiride. Off medications maintaining hemoglobin A1c within normal. Hx TIA, HLD, BPH, chronic pain, glaucoma and dementia. Needs statin 10 year ASCVD risk of 32.6% continue Lipitor 40 mg DVT prop ambulatory Discussed with nurse, patient and Dr. Seth Per medical standpoint patient may be transferred to psychiatric floor or DC Problem Qualifiers (1) Insomnia: Qualified Code: G47.00 - Insomnia, unspecified type Talita eTmpleton Jun 04, 2017 11:29
[2017-06-04 11:31] LABS: BICARBONATE 29.1 MEQ/L (21.0-32.0); POTASSIUM 4.1 MEQ/L (3.5-5.1)
--- NOTE | 2017-06-04 12:33 | HHI.PYPN ---
Subjective Remarks Patient visited today for psychiatric evaluation, with a much better and brighter affect today, less hypoactive, he reports feeling much better, reports good mood, he says that he has been more active, walking in the unit, with a good appetite, good level of energy and sleep. As per nurses, he still has some periods of confusion, but is doing better today. No agitation or aggressive behavior reported. Comply with his medication,and medical side effects. Review of Systems Other Not somatic complaints Objective Alert: Yes [place]: Person (O x 3), Place, Date Mood: Calm Affect: Restricted Memory Intact: Comment (Not impaired) Hallucinations: Other (No AVH) Delusions: No Delusion Type: Other (No delusional material elicited) Suicidal: Ideation (suicidal thoughts, no plan) Homicidal: Ideation (Denies HI) Insight/Judgment Fair Labs Test 06/04/17 10:53 White Blood Count 6.3 TH/MM3 Red Blood Count 4.63 MIL/MM3 Hemoglobin 12.9 GM/DL Hematocrit 38.8 % Mean Corpuscular Volume 83.8 FL Mean Corpuscular Hemoglobin 27.8 PG Mean Corpuscular Hemoglobin 33.2 % Concent Red Cell Distribution Width 14.0 % Platelet Count 300 TH/MM3 Mean Platelet Volume 8.7 FL Sodium Level 137 MEQ/L Potassium Level 4.1 MEQ/L Chloride Level 100 MEQ/L Carbon Dioxide Level 29.1 MEQ/L Anion Gap 8 MEQ/L Blood Urea Nitrogen 9 MG/DL Creatinine 1.69 MG/DL Estimat Glomerular Filtration 41 ML/MIN Rate Random Glucose 150 MG/DL Calcium Level 9.5 MG/DL Vitals/IOs Vital Signs Date Time Temp Pulse Resp B/P Pulse Ox O2 Delivery O2 Flow Rate FiO2 06/04/17 05:48 99.6 85 15 148/70 94 Intake and Output 06/03/17 06/03/17 06/03/17 07:59 15:59 23:59 Intake Total 240 ml 1920 ml 660 ml Balance 240 ml 1920 ml 660 ml Assessment & Plan Problem List: (1) Adjustment disorder ICD Code: F43.20 (2) Delirium due to another medical condition ICD Code: F05 (3) Major depressive disorder, single episode Assessment & Plan: Continue current psychotropic regimen ICD Code: F32.9 Assessment & Plan Estimated LOS: days Justification for Cont. Inpt. Patient has an increased risk to decompensate at a lower level of care. Request HC Surrog/Guard Advoc?: No Problem Qualifiers (1) Adjustment disorder: Qualified Code: F43.20 - Adjustment disorder, unspecified type Peng Ashley MD Jun 04, 2017 12:33
[2017-06-04 18:32] VITALS: BP 131/86; PULSE 84; RESP 16; TEMP 96.9; O2SAT 98
[2017-06-04] MEDS: LATANOPROST 0.005% OPHT SOLN 2.5 ML BTL EACH EYE SCH (21:00)
[2017-06-04] MEDS: TAMSULOSIN HCL 0.4 MG CAP PO SCH (21:14)
[2017-06-04] MEDS: traZODone HCL 50 MG TAB PO SCH (21:15)
[2017-06-04] MEDS: QUEtiapine FUMARATE 100 MG TAB PO SCH (21:15)
[2017-06-04] MEDS: GABAPENTIN 300 MG CAP PO SCH (21:15)
[2017-06-04] MEDS: ATORVASTATIN 40 MG TAB PO SCH (21:15)
[2017-06-05 01:28] VITALS: BP 113/51; PULSE 62; RESP 16; O2SAT 96
[2017-06-05 06:00] VITALS: BP 122/78; PULSE 85; RESP 16; TEMP 99.2; O2SAT 94
[2017-06-05] MEDS: SENNOSIDES 8.6 MG TAB PO PRN (07:25)
[2017-06-05] MEDS: LACTULOSE SYRUP 20 GM/30 ML CUP PO SCH ×3 (07:26→18:00)
[2017-06-05] MEDS: TIMOLOL MALEATE 0.5% OPHT SOLN 5 ML BTL EACH EYE SCH ×2 (07:26→20:40)
[2017-06-05] MEDS: ASPIRIN EC 81 MG TABEC PO SCH (07:26)
[2017-06-05] MEDS: POLYETHYLENE GLYCOL 17 GM PKG PO SCH (07:26)
[2017-06-05] MEDS: DOCUSATE SODIUM 50 MG/SENNA 8.6 MG TAB PO SCH ×2 (07:26→20:42)
[2017-06-05] MEDS: PRIMIDONE 50 MG TAB PO SCH ×2 (07:26→20:41)
[2017-06-05] MEDS: BISACODYL 10 MG SUPP RECTAL SCH (07:28)
[2017-06-05] MEDS: buPROPion HCL 75 MG TAB PO SCH ×2 (07:28→20:41)
--- NOTE | 2017-06-05 10:55 | HHI.PR ---
Subjective Remarks Follow-up acute kidney injury and constipation. Creatinine remains elevated 1.69. Patient denies voiding issues. Reports having formed BM yesterday. Denies abdominal pain. Offers no other complaints at this time denies chest pain shortness of breath nausea vomiting. Objective Vitals Vital Signs Date Time Temp Pulse Resp B/P Pulse Ox O2 Delivery O2 Flow Rate FiO2 06/05/17 06:00 99.2 85 16 122/78 94 06/04/17 18:32 96.9 84 16 131/86 98 I/O 06/04/17 06/04/17 06/04/17 06/05/17 06/05/17 06/05/17 07:00 15:00 23:00 07:00 15:00 23:00 Intake Total 1320 ml 1440 ml 960 ml Balance 1320 ml 1440 ml 960 ml Intake Oral 1320 ml 1440 ml 960 ml # Voids 1 3 2 Result Diagram: 06/04/17 1053 06/04/17 1053 Imaging Last Impressions Abdomen X-Ray 05/30/17 0600 Signed Impressions: Service Date/Time: Tuesday, May 30, 2017 09:27 - CONCLUSION: Right ureteral calcification is no longer visualized. Rafa Walker MD Abdomen/Pelvis CT 05/27/17 0000 Signed Impressions: Service Date/Time: May 21:53 - CONCLUSION: Moderate hydronephrosis the right kidney due to an approximate 5 mm distal ureteral stone. Fco Sharma MD Objective Remarks Well-nourished well-developed. in no acute distress Skin no rashes not diaphoretic extraocular movements intact Regular rate and rhythm Lungs are clear no wheezes Abdomen normoactive bowel sounds soft distended nontender, soft umbilical hernia noted No CVA tenderness A&O to person place and time at this time A/P Problem List: (1) History of dementia ICD Code: Z86.59 Status: Acute (2) Insomnia ICD Code: G47.00 Status: Acute (3) COPD (chronic obstructive pulmonary disease) ICD Code: J44.9 Status: Acute (4) Constipation ICD Code: K59.00 Status: Acute Assessment and Plan Patient is a 61-year-old male with primary medical history of insomnia, anxiety , TIA, BPH, HTN who came in to the hospital for evaluation of insomnia problems. As per record, patient hasn't slept well for the last 5 days. He will try to use Ativan but it did not help him. He is now admitted to inpatient psychiatry unit for further evaluation. Consulted for medical management of nausea vomiting. Confusion- Improving Labs reviewed per psychiatry: Will discontinue deliriogenic medications, Flexeril and anticholinergics. Continue current psychotropics. Insomnia, depression, anxiety - Managed by psychiatry team Constipation- resolved Improving passing flatus and stool. lactulose to Farrah- Colace and MiraLAX. Obstructive uropathy secondary to ureteral stone. Improved patient passed stone. Repeat KUB showed calcification no longer present. Status post evaluation Acute kidney injury secondary to obstructive uropathy- creatinine remains elevate9 1.69 avoid nephrotoxins. recheck BMP today- if creatinine remains elevated may need renal US bladder vogel ordered to check for post void residual HTN, history - Not on any BP meds at home, we'll trend BP - Clonidine when necessary History of DM 2 - Latest hemoglobin A1 c 5.8 - Patient previously was on metformin and glimepiride. Off medications maintaining hemoglobin A1c within normal. Hx TIA, HLD, BPH, chronic pain, glaucoma and dementia. Needs statin 10 year ASCVD risk of 32.6% continue Lipitor 40 mg DVT prop ambulatory Discussed with nurse, patient and Dr. Seth Per medical standpoint patient may be transferred to psychiatric floor Problem Qualifiers (1) Insomnia: Qualified Code: G47.00 - Insomnia, unspecified type Talita Templeton Jun 05, 2017 10:55
[2017-06-05 12:18] LABS: BICARBONATE 28.1 MEQ/L (21.0-32.0)
--- NOTE | 2017-06-05 13:43 | HHI.PYPN ---
Subjective Remarks Patient seen today for psychiatric reevaluation follow with nurse in charge Miss Castaneda, patient reports good mood, good sleep last night, however he seems to be hypoactive, he hasn't got out on his bed today, since we disengage his affect is not congruent with his mood. He denies suicidal and homicidal ideation, he denies visual and auditory hallucinations, the patient is compliant with his medication, no significant side effects. Patient is oriented 3, no confusion observed.. Review of Systems Other No somatic complaints Objective Alert: Yes [place]: Person (O x 3), Place, Date Mood: Calm Affect: Restricted Memory Intact: Comment (Not impaired) Hallucinations: Other (No AVH) Delusions: No Delusion Type: Other (No delusional material elicited) Suicidal: Ideation (suicidal thoughts, no plan) Homicidal: Ideation (Denies HI) Insight/Judgment Fair Labs Test 06/05/17 11:34 Sodium Level 137 MEQ/L Potassium Level 4.0 MEQ/L Chloride Level 102 MEQ/L Carbon Dioxide Level 28.1 MEQ/L Anion Gap 7 MEQ/L Blood Urea Nitrogen 11 MG/DL Creatinine 1.56 MG/DL Estimat Glomerular Filtration 45 ML/MIN Rate Random Glucose 121 MG/DL Calcium Level 9.4 MG/DL Vitals/IOs Vital Signs Date Time Temp Pulse Resp B/P Pulse Ox O2 Delivery O2 Flow Rate FiO2 06/05/17 06:00 99.2 85 16 122/78 94 Intake and Output 06/04/17 06/04/17 06/04/17 07:59 15:59 23:59 Intake Total 2160 ml 600 ml Balance 2160 ml 600 ml Assessment & Plan Problem List: (1) Adjustment disorder ICD Code: F43.20 (2) Delirium due to another medical condition ICD Code: F05 (3) Major depressive disorder, single episode ICD Code: F32.9 Assessment & Plan Estimated LOS: days Justification for Cont. Inpt. Patient has an increased risk to decompensate at a lower level of care Request HC Surrog/Guard Advoc?: No Problem Qualifiers (1) Adjustment disorder: Qualified Code: F43.20 - Adjustment disorder, unspecified type Peng Ashley MD Jun 05, 2017 13:43
[2017-06-05 18:07] VITALS: BP 130/86; PULSE 80; RESP 18; TEMP 98.1; O2SAT 96
[2017-06-05] MEDS: traZODone HCL 50 MG TAB PO SCH (20:41)
[2017-06-05] MEDS: ATORVASTATIN 40 MG TAB PO SCH (20:41)
[2017-06-05] MEDS: TAMSULOSIN HCL 0.4 MG CAP PO SCH (20:41)
[2017-06-05] MEDS: GABAPENTIN 300 MG CAP PO SCH (20:42)
[2017-06-05] MEDS: QUEtiapine FUMARATE 100 MG TAB PO SCH (20:43)
[2017-06-05] MEDS: LATANOPROST 0.005% OPHT SOLN 2.5 ML BTL EACH EYE SCH (21:20)
[2017-06-05] MEDS: LORazepam 1 MG TAB PO PRN (23:29)
[2017-06-06] MEDS: LORazepam 1 MG TAB PO PRN (03:36)
[2017-06-06 05:15] VITALS: BP 127/76; PULSE 85; RESP 17; TEMP 98.4; O2SAT 93
[2017-06-06] MEDS: DOCUSATE SODIUM 50 MG/SENNA 8.6 MG TAB PO SCH ×2 (09:00→21:21)
[2017-06-06] MEDS: PRIMIDONE 50 MG TAB PO SCH ×2 (09:00→21:31)
[2017-06-06] MEDS: ASPIRIN EC 81 MG TABEC PO SCH (09:00)
[2017-06-06] MEDS: POLYETHYLENE GLYCOL 17 GM PKG PO SCH (09:00)
[2017-06-06] MEDS: buPROPion HCL 75 MG TAB PO SCH ×2 (09:00→21:21)
[2017-06-06] MEDS: LACTULOSE SYRUP 20 GM/30 ML CUP PO SCH ×3 (09:00→17:15)
[2017-06-06] MEDS: BISACODYL 10 MG SUPP RECTAL SCH (09:00)
[2017-06-06] MEDS: TIMOLOL MALEATE 0.5% OPHT SOLN 5 ML BTL EACH EYE SCH ×2 (09:00→21:31)
--- NOTE | 2017-06-06 12:30 | HHI.PR ---
Subjective Remarks Follow-up acute kidney injury and constipation. Reports feeling fatigued as he did not sleep well through the night Creatinine 1.56. Patient denies voiding issues. Reports having formed BM daily. Denies abdominal pain. Offers no other complaints at this time denies chest pain shortness of breath nausea vomiting. Objective Vitals Vital Signs Date Time Temp Pulse Resp B/P Pulse Ox O2 Delivery O2 Flow Rate FiO2 06/06/17 05:15 98.4 85 17 127/76 93 06/05/17 18:07 98.1 80 18 130/86 96 I/O 06/05/17 06/05/17 06/05/17 06/06/17 06/06/17 06/06/17 07:00 15:00 23:00 07:00 15:00 23:00 Intake Total 1680 ml 1320 ml 240 ml Balance 1680 ml 1320 ml 240 ml Intake Oral 1680 ml 1320 ml 240 ml Bladder Scan Volume Amount 141 ml # Voids 2 2 1 Result Diagram: 06/04/17 1053 06/05/17 1134 Objective Remarks Well-nourished well-developed. in no acute distress Skin no rashes not diaphoretic extraocular movements intact Regular rate and rhythm Lungs are clear no wheezes Abdomen normoactive bowel sounds soft distended nontender, soft umbilical hernia noted No CVA tenderness A&O to person place and time at this time A/P Problem List: (1) History of dementia ICD Code: Z86.59 Status: Acute (2) Insomnia ICD Code: G47.00 Status: Acute (3) COPD (chronic obstructive pulmonary disease) ICD Code: J44.9 Status: Acute (4) Constipation ICD Code: K59.00 Status: Acute Assessment and Plan Patient is a 61-year-old male with primary medical history of insomnia, anxiety , TIA, BPH, HTN who came in to the hospital for evaluation of insomnia problems. As per record, patient hasn't slept well for the last 5 days. He will try to use Ativan but it did not help him. He is now admitted to inpatient psychiatry unit for further evaluation. Consulted for medical management of nausea vomiting. Confusion- Improved Labs reviewed per psychiatry: discontinued deliriogenic medications, Flexeril and anticholinergics. Continue current psychotropics. Insomnia, depression, anxiety - Managed by psychiatry team Constipation- resolved Improving passing flatus and stool. lactulose to Farrah- Colace and MiraLAX. Obstructive uropathy secondary to ureteral stone. Improved patient passed stone. Repeat KUB showed calcification no longer present. Status post evaluation Acute kidney injury secondary to obstructive uropathy- creatinine avoid nephrotoxins. recheck BMP today- if creatinine remains elevated may need renal US bladder vogel ordered to check for post void residual HTN, history - Not on any BP meds at home, we'll trend BP - Clonidine when necessary History of DM 2 - Latest hemoglobin A1 c 5.8 - Patient previously was on metformin and glimepiride. Off medications maintaining hemoglobin A1c within normal. Hx TIA, HLD, BPH, chronic pain, glaucoma and dementia. Needs statin 10 year ASCVD risk of 32.6% continue Lipitor 40 mg DVT prop ambulatory Discussed with nurse, patient and Dr. Seth Per medical standpoint patient may be transferred to psychiatric floor Problem Qualifiers (1) Insomnia: Qualified Code: G47.00 - Insomnia, unspecified type Talita Templeton Jun 06, 2017 12:30
--- NOTE | 2017-06-06 14:42 | HHI.PYPN ---
Subjective Remarks Patient was seen today on psychiatric reevaluation along with nurse in charge Abraham. Patient was found his bed sleeping, but easily arousable. Once the patient opened his eyes he immediately recognized me and showed some humor telling me who was the president, today's date even before to be asked. He is smiling more often and seems to have a brighter affect, he reports improved mood , but he sustained very hypoactive, isolated in the unit, coming out of the bed very often. He has been compliant with his medication, no significant side effects. Patient reports very sleep at night, but still having some difficulties. He denies suicidal and homicidal ideation, he denies visual and auditory hallucinations. Review of Systems Other No somatic complaints Objective Alert: Yes [place]: Person (O x 3), Place, Date Mood: Calm Affect: Restricted Memory Intact: Comment (Not impaired) Hallucinations: Other (No AVH) Delusions: No Delusion Type: Other (No delusional material elicited) Suicidal: Ideation (suicidal thoughts, no plan) Homicidal: Ideation (Denies HI) Insight/Judgment Fair Vitals/IOs Vital Signs Date Time Temp Pulse Resp B/P Pulse Ox O2 Delivery O2 Flow Rate FiO2 06/06/17 05:15 98.4 85 17 127/76 93 Intake and Output 06/05/17 06/05/17 06/06/17 08:00 16:00 00:00 Intake Total 1680 ml 1320 ml Balance 1680 ml 1320 ml Assessment & Plan Problem List: (1) Adjustment disorder ICD Code: F43.20 (2) Delirium due to another medical condition ICD Code: F05 (3) Major depressive disorder, single episode Assessment & Plan: Patient continues to show psychomotor retardation, flat affect, isolation in the unit and poor sleep at night. Will increase Seroquel to 200 mg for mood and to help with sleep.. ICD Code: F32.9 Assessment & Plan Estimated LOS: days Justification for Cont. Inpt. Patient has an elevator risk to decompensate at a lower level of care. Request HC Surrog/Guard Advoc?: No Problem Qualifiers (1) Adjustment disorder: Qualified Code: F43.20 - Adjustment disorder, unspecified type Peng Ashley MD Jun 06, 2017 14:42
[2017-06-06 18:00] VITALS: BP 127/80; PULSE 77; RESP 18; TEMP 98.7; O2SAT 98
[2017-06-06] MEDS: GABAPENTIN 300 MG CAP PO SCH (21:21)
[2017-06-06] MEDS: TAMSULOSIN HCL 0.4 MG CAP PO SCH (21:21)
[2017-06-06] MEDS: traZODone HCL 50 MG TAB PO SCH (21:21)
[2017-06-06] MEDS: ATORVASTATIN 40 MG TAB PO SCH (21:21)
[2017-06-06] MEDS: QUEtiapine FUMARATE 200 MG TAB PO SCH (21:22)
[2017-06-06] MEDS: LATANOPROST 0.005% OPHT SOLN 2.5 ML BTL EACH EYE SCH (21:31)
[2017-06-07 05:32] VITALS: BP 148/80; PULSE 94; RESP 16; TEMP 98.1; O2SAT 95
[2017-06-07] MEDS: POLYETHYLENE GLYCOL 17 GM PKG PO SCH (08:00)
[2017-06-07] MEDS: PRIMIDONE 50 MG TAB PO SCH ×2 (08:01→21:15)
[2017-06-07] MEDS: ASPIRIN EC 81 MG TABEC PO SCH (08:01)
[2017-06-07] MEDS: DOCUSATE SODIUM 50 MG/SENNA 8.6 MG TAB PO SCH ×2 (08:01→21:00)
[2017-06-07] MEDS: LACTULOSE SYRUP 20 GM/30 ML CUP PO SCH ×3 (08:01→17:35)
[2017-06-07] MEDS: buPROPion HCL 75 MG TAB PO SCH ×2 (08:01→21:16)
[2017-06-07] MEDS: TIMOLOL MALEATE 0.5% OPHT SOLN 5 ML BTL EACH EYE SCH ×2 (08:02→21:00)
[2017-06-07] MEDS: BISACODYL 10 MG SUPP RECTAL SCH (09:00)
--- NOTE | 2017-06-07 15:34 | HHI.PYPN ---
Subjective Remarks Patient seen today for first time by me with transferred to this unit. Patient seen with nurse Tiffanie and counselor Connie. Patient calm cooperative laying quietly in bed. Stating that depression related to his divorce from his of many years course she "doesn't love me anymore". He had rented a room across the street from her has not slept in 6 days. Was initially admitted on the [facility] unit. He has been medically cleared and transportation for further care and attention. He now denies suicidality homicidality voices or visions. Is been compliant with his medication. The same patient appears to be somewhat improved. We'll continue observation Review of Systems Except as stated in HPI: all other systems reviewed are Neg Objective Alert: Yes [place]: Person (O x 3), Place, Date Mood: Calm Affect: Restricted Memory Intact: Comment (Not impaired) Hallucinations: Other (No AVH) Delusions: No Delusion Type: Other (No delusional material elicited) Suicidal: Ideation (suicidal thoughts, no plan) Homicidal: Ideation (Denies HI) Insight/Judgment Poor to fair Vitals/IOs Vital Signs Date Time Temp Pulse Resp B/P Pulse Ox O2 Delivery O2 Flow Rate FiO2 06/07/17 05:32 98.1 94 16 148/80 95 Intake and Output 06/06/17 06/06/17 06/07/17 08:00 16:00 00:00 Intake Total 240 ml 1800 ml Balance 240 ml 1800 ml Assessment & Plan Problem List: (1) Adjustment disorder ICD Code: F43.20 (2) Delirium due to another medical condition ICD Code: F05 (3) Major depressive disorder, single episode ICD Code: F32.9 Assessment & Plan Estimated LOS: days patient continues depressed but appears to be improving after reading prior progress notes. Compliant medication. For now continue treatment consider discharge soon Justification for Cont. Inpt. At this time patient may decompensate if not placement of an appropriate level of care Discharge Planning To be determined Request HC Surrog/Guard Advoc?: No Problem Qualifiers (1) Adjustment disorder: Qualified Code: F43.20 - Adjustment disorder, unspecified type Akira Laughlin MD Jun 07, 2017 15:34
[2017-06-07 15:51] VITALS: BP 125/79; PULSE 74; RESP 18; TEMP 98.4
[2017-06-07 18:00] VITALS: BP 125/79; PULSE 74; RESP 18; TEMP 98.4; O2SAT 98
[2017-06-07] MEDS: QUEtiapine FUMARATE 200 MG TAB PO SCH (21:15)
[2017-06-07] MEDS: GABAPENTIN 300 MG CAP PO SCH (21:16)
[2017-06-07] MEDS: ATORVASTATIN 40 MG TAB PO SCH (21:16)
[2017-06-07] MEDS: TAMSULOSIN HCL 0.4 MG CAP PO SCH (21:16)
[2017-06-07] MEDS: traZODone HCL 50 MG TAB PO SCH (21:16)
[2017-06-07] MEDS: LATANOPROST 0.005% OPHT SOLN 2.5 ML BTL EACH EYE SCH (21:17)
[2017-06-08 06:03] VITALS: BP 122/61; PULSE 86; RESP 16; TEMP 98; O2SAT 95
[2017-06-08] MEDS: BISACODYL 10 MG SUPP RECTAL SCH (09:00)
[2017-06-08] MEDS: LACTULOSE SYRUP 20 GM/30 ML CUP PO SCH ×3 (09:00→17:57)
[2017-06-08] MEDS: POLYETHYLENE GLYCOL 17 GM PKG PO SCH (09:00)
[2017-06-08] MEDS: DOCUSATE SODIUM 50 MG/SENNA 8.6 MG TAB PO SCH (09:00)
[2017-06-08] MEDS: buPROPion HCL 75 MG TAB PO SCH (09:08)
[2017-06-08] MEDS: ASPIRIN EC 81 MG TABEC PO SCH (09:09)
[2017-06-08] MEDS: TIMOLOL MALEATE 0.5% OPHT SOLN 5 ML BTL EACH EYE SCH (09:09)
[2017-06-08] MEDS: PRIMIDONE 50 MG TAB PO SCH (09:09)
[2017-06-08] MEDS ORDERED: TAMS5CAP PO (15:54)
[2017-06-08] MEDS ORDERED: ATOR40TA16 PO (15:54)
[2017-06-08] MEDS ORDERED: NEUR300C PO (15:54)
[2017-06-08] MEDS ORDERED: PRIM50 PO (15:54)
[2017-06-08] MEDS ORDERED: LATA.005%O EACH EYE (15:54)
[2017-06-08] MEDS ORDERED: QUET1TAB9 PO (15:54)
[2017-06-08] MEDS ORDERED: ASPI-99 PO (15:54)
[2017-06-08] MEDS ORDERED: SENN1TAB PO (15:54)
[2017-06-08] MEDS ORDERED: POLY17S PO (15:54)
[2017-06-08] MEDS ORDERED: CYCL1TAB29 PO (15:54)
[2017-06-08] MEDS ORDERED: TRAZ50TA12 PO (15:54)
[2017-06-08] MEDS ORDERED: BUPR75TA PO (15:54)
[2017-06-08] MEDS ORDERED: TIMO0.5S30 EACH EYE (15:54)
--- NOTE | 2017-06-08 16:00 | HHI.DS ---
Psychiatry Discharge Summary Inpatient Psychiatric care?: Yes Advance Directive: No Reason Not Provided: patient declined Mental Health AdvanceDirective: No (patient declined) Name and Number: patient declined Health Care Proxy: No (patient declined) Name and Phone Number: patient declined Admission Admission Date May 25, 2017 at 17:16 Admission Diagnosis: (1) Adjustment disorder ICD Code: F43.20 Brief History Mr. Trimble is a 61-year-old male with reported history of insomnia issues who presents on a voluntary basis. He complained in the ED of insomnia 5 days. He was seen by the psychiatric nurse practitioner in the emergency department and apparently described some previous thoughts of self-harm, although he was not suicidal at the time of her evaluation. Reviewing the electronic medical record, I see no prior psychiatric contact within our system. Patient seen and examined with nurse. Chart reviewed. Case discussed with nursing staff. On my examination today, the patient reports that his sole psychiatric issue is that he has not slept in 6 days. He says that he was recently hospitalized for medical issues and when he returned home he found out that his had filed for divorce. He adamantly denies any suicidal or homicidal ideation, intent or plan on direct questioning. He denies feeling particularly anxious. He denies any issues with mood disturbance, nor can I elicit any depressive or hypomanic/manic symptoms at this time. He denies any audiovisual hallucinations, and I can elicit no delusional beliefs. The remainder of the psychiatric ROS is negative. The patient wishes to remain on the unit to obtain assistance with getting a good night's sleep. Past psychiatric history: Patient endorses a history of trouble with insomnia. He reports that he has been prescribed Ambien and Klonopin for this in the past. He denies a history of outpatient psychiatric treatment. He denies a history of psychiatric admissions. He denies a history of suicide attempts. Family history: The patient denies a family history of mental illness, substance use disorder or suicide. Chemical dependency history: The patient denies any abuse of drugs or alcohol. He says that his last use of benzodiazepines was several weeks ago, but his urine toxicology was positive for benzodiazepines and barbiturates on presentation here. I have reviewed the [employer] controlled substances database report, and it appears that he was prescribed Ambien 10 mg #90 for a 90 day supply on 04/08/17 and also given Klonopin 1 mg, #405 for a 90 day supply on 01/28. Both of these were prescribed by a Dr. Ruby. Social history: The patient reports that he has recently found out that his is filing for divorce. The 2 have no children. His house is in his ' s name because he says that he used to clean up bullets from shooting ranges and was worried about the EPA suing him and taking his house, and so he decided several years ago to place the house and his 's name only. He believes that she is planning on keeping the house in the divorce. He does note that he has another place to stay. He has a GED. He previously served as a border patrolman but denies any other history. He has a history of a misdemeanor at age 17 but denies any other legal history. He denies any access to guns or firearms. No reported history of trauma. Tobacco Use In Past 30 Days: No Tobacco Past 30 Days Alcohol Use: Never Hospital Course Patient showed no behavior problems since admission 2600, is been calm cooperative somewhat isolative. He denies suicidality homicidality voices or visions. States the been compliant with medication is not sleeping quite well. 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 He feels medications are doing well and wishes discharged today. This time he no longer meets criteria for inpatient psychiatric hospitalization. Thus will order discharged today Rx 1 month to follow-up [facility] outpatient mental health services a follow-up with his PCP Results Blood Pressure 122 / 61 Vital Signs Date Time Temp Pulse Resp B/P Pulse Ox O2 Delivery O2 Flow Rate FiO2 06/08/17 06:03 98.0 86 16 122/61 95 Urine toxicology positive for barbiturates and benzodiazepines Summary of Procedures None done Imaging Last Impressions Abdomen X-Ray 05/30/17 0600 Signed Impressions: Service Date/Time: Tuesday, May 30, 2017 09:27 - CONCLUSION: Right ureteral calcification is no longer visualized. Rafa Walker MD Abdomen/Pelvis CT 05/27/17 0000 Signed Impressions: Service Date/Time: May 21:53 - CONCLUSION: Moderate hydronephrosis the right kidney due to an approximate 5 mm distal ureteral stone. Fco Sharma MD Pending results at discharge: No Medications # of Antipsychotic meds at D/C: 1 Approp Antipsych med options 1 - Minimum of three failed multiple trials of monotherapy. 2 - Documented plan to taper to monotherapy due to previous use of multiple meds OR cross-taper in progress at D/C. 3 - Documentation of augmentation of Clozapine. 4 - Justification other than those listed in allowable values 1-3, document here : Discharge Discharge Date: Jun 08, 2017 Discharge Diagnosis: (1) Adjustment disorder Diagnosis: Principal ICD Code: F43.20 Mental Status Exam at Disch Alert oriented white male pain calmly in bed. He has normal active. Mood is euthymic slight decreased range intensity of affect, speech rate and rhythm are within normal limits though no formal thought disorders. No auditory or visual hallucinations. No delusions. Insight and judgment is poor to fair. Cognition grossly intact Pt Condition on Discharge: Stable Discharge Disposition: Discharge Home Discharge Instructions Diet Instructions: As Tolerated, No Restrictions Activities you can perform: Regular-No Restrictions Scheduled Appointment: Sanjay Laguna Appointment Date: Jun 09, 2017 Appointment Time: 7:30am Discharge Time > 30 minutes Discharge/Advance Care Plan Health Problems: (1) Adjustment disorder (2) Delirium due to another medical condition (3) Major depressive disorder, single episode Goals to promote your health * To prevent worsening of your condition and complications * To maintain your health at the optimal level Directions to meet your goals Take your medications as prescribed Follow your dietary instruction Follow activity as directed Keep your appointments as scheduled Take your immunizations and boosters as scheduled If your symptoms worsen call your PCP, if no PCP go to Urgent Care Center or Emergency Room For 07/06 questions related to your inpatient stay or results of tests pending at discharge, please contact Dr. Akira Laughlin at Smoking is Dangerous to Your Health. Avoid second hand smoking Problem Qualifiers (1) Adjustment disorder: Qualified Code: F43.20 - Adjustment disorder, unspecified type Akira Laughlin MD Jun 08, 2017 16:00
== END 2017-06-08 18:45 | disposition home or self-care (01) | DRG 882 ==
LOC: NEPE 07:18 → NEDA 17:16 → H250 20:18 → H4EA 05-30 14:16 → H260 06-06 15:37
PROVIDERS: ADMIT Psychiatry & Neurology Psychiatry; ATTEND Psychiatry & Neurology Psychiatry
DX: F43.20 Adjustment disorder, unspecified (principal); N17.9 Acute kidney failure, unspecified; F05 Delirium due to known physiological condition; N20.2 Calculus of kidney with calculus of ureter; I10 Essential (primary) hypertension; G47.00 Insomnia, unspecified; Z86.73 Personal history of transient ischemic attack (TIA), and cerebral infarction without residual deficits; N40.0 Benign prostatic hyperplasia without lower urinary tract symptoms; Z79.82 Long term (current) use of aspirin; E11.9 Type 2 diabetes mellitus without complications; E78.5 Hyperlipidemia, unspecified; Z87.442 Personal history of urinary calculi; K59.00 Constipation, unspecified; H40.9 Unspecified glaucoma
CPT/HCPCS: 74000; 74176; 76937; 80048; 80053; 80061; 80307; 81001; 82550; 83036; 83735; 85025; 85027; 93005; J2405; J7030

== ENCOUNTER 2017-06-22 08:20 | Emergency (ER) | payer OTHER ==
[~2017-06-22] VITALS: Ht 177.8 cm; Wt 80.5 kg
[~2017-06-22 08:20] MED LIST changes: +ASPI-99 PO; -ASPI81TA81; +ATOR40TA16 PO; +BUPR75TA PO; +LATA.005%O EACH EYE; +NEUR300C PO; +POLY17S PO; +PRIM50 PO; +QUET1TAB9 PO; +SENN1TAB PO; -TAMS0.4C4 PO; +TAMS5CAP PO; +TIMO0.5S30 EACH EYE; +TRAZ50TA12 PO
[2017-06-22 08:22] VITALS: BP 156/78; PULSE 68; RESP 15; TEMP 98.2; O2SAT 98
[2017-06-22] MEDS ORDERED: SODIUM CHLOR 0.9% 1000 ML INJ 1,000 ML IV SCH (09:59)
[2017-06-22] MEDS ORDERED: SODIUM CHLORIDE 0.9% FLUSH 10 ML FLUSH IV FLUSH PRN (10:00)
[2017-06-22] MEDS ORDERED: METF500T PO (10:02)
[2017-06-22] MEDS ORDERED: HYDR-3516 PO (10:02)
[2017-06-22] MEDS ORDERED: GLIM1TAB PO (10:02)
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
[2017-06-22 10:31] VITALS: O2SAT 100
[2017-06-22 10:33] LABS: AUTOMATED NEUTROPHIL # 2.3 TH/MM3 (1.8-7.7); BASOPHIL % 0.5 % (0.0-2.0); EOSINOPHIL # 0.4 TH/MM3 (0-0.4); EOSINOPHIL % 7.9 % (0.0-4.0); HEMATOCRIT 42.1 % (39.0-51.0); HEMO FLAGS DIFF FINAL; LYMPH % 35.3 % (9.0-44.0); LYMPHOCYTE # 1.8 TH/MM3 (1.0-4.8); MEAN CELL VOLUME 82.2 FL (80.0-100.0); MEAN CORPUSCULAR HEMOGLOBIN 27.5 PG (27.0-34.0); MEAN CORPUSCULAR HGB CONC 33.5 % (32.0-36.0); NEUT % 45.3 % (16.0-70.0); PLATELET COUNT 244 TH/MM3 (150-450); RED BLOOD COUNT 5.13 MIL/MM3 (4.50-5.90); RED CELL DISTRIBUTION WIDTH 15.1 % (11.6-17.2); WHITE BLOOD COUNT 5.2 TH/MM3 (4.0-11.0)
[2017-06-22 10:41] LABS: APTT (PATIENT) 30.4 SEC (24.3-30.1); INTERNATIONAL NORMALIZED RATIO 1.1 RATIO; PROTHROMBIN TIME - PATIENT 12.1 SEC (9.8-11.6)
[2017-06-22 10:50] LABS: ALT (GPT) 22 U/L (12-78); ANION GAP 8 MEQ/L (5-15); AST (GOT) 18 U/L (15-37); BICARBONATE 28.1 MEQ/L (21.0-32.0); BLOOD UREA NITROGEN 8 MG/DL (7-18); CHLORIDE 105 MEQ/L (98-107); GLOMERULAR FILTRATION RATE 54 ML/MIN (>89); POTASSIUM 4.8 MEQ/L (3.5-5.1); SODIUM (NA) 141 MEQ/L (136-145)
[2017-06-22 10:52] LABS: ALKALINE PHOSPHATASE 115 U/L (45-117); TOTAL BILIRUBIN ADULT 0.7 MG/DL (0.2-1.0)
--- NOTE | 2017-06-22 10:52 | RADRPT ---
EXAM DATE/TIME: 06/22/2017 10:13 [place] COMPARISON: No previous studies available for comparison. INDICATIONS : Left flank pain with nausea and vomiting x 1 week. ORAL CONTRAST: No oral contrast ingested. RADIATION DOSE: 13.35 CTDIvol (mGy) MEDICAL HISTORY : Dementia. Cardiovascular disease Renal calculi.Diabetes. SURGICAL HISTORY : None. ENCOUNTER: Initial ACUITY: 1 week PAIN SCALE: 7/10 LOCATION: Left flank TECHNIQUE: Volumetric scanning of the abdomen and pelvis was performed. Using automated exposure control and ad justment of the mA and/or kV according to patient size, radiation dose was kept as low as reasonably achievable to obtain optimal diagnostic quality images. DICOM format image data is available electro nically for review and comparison. FINDINGS: LOWER LUNGS: The visualized lower lungs are clear. LIVER: Homogeneous density without lesion. There is no dilation of the biliary tree. No calcified gallston es. SPLEEN: Normal size without lesion. PANCREAS: Within normal limits. KIDNEYS: Small nonobstructing kidney stones bilaterally. No evidence of hydronephrosis or ureteral stone. ADRENAL GLANDS: Within normal limits. VASCULAR: There is no aortic aneurysm. BOWEL/MESENTERY: The stomach, small bowel, and colon demonstrate no acute abnormality. There is no free intraperitone al air or fluid. ABDOMINAL WALL: Small fat-containing supraumbilical midline abdominal wall hernia. Tiny fat-containing umbilical [place] RETROPERITONEUM: There is no lymphadenopathy. BLADDER: There are several dependent calcific densities present in the right bladder base which are likely dep endent bladder stones. REPRODUCTIVE: Within normal limits. INGUINAL: There is no lymphadenopathy or hernia. MUSCULOSKELETAL: Within normal limits for patient age. CONCLUSION: Bilateral nonobstructing kidney stones. Bladder stones. No evidence of ureteral stone or hydronephrosis at present. Akira Cadena MD on June 22, 2017 at 10:38 Board Certified Radiologist. This report was verified electronically.
[2017-06-22 13:01] LABS: BLOOD, URINE MOD (NEG); COMMENT (UR) CULT NOT INDICATED; CULTURE IF INDICATED CULT NOT INDICATED; GLUCOSE,URINE NEG (NEG); KETONE, URINE NEG (NEG); NITRITE,URINE NEG (NEG); SQUAMOUS EPITHELIAL CELL URINE <1 /hpf (0-5); URINE COLOR YELLOW (YELLW/STRAW)
[2017-06-22] MEDS ORDERED: ONDANSETRON ODT 4 MG TAB PO ONE (14:00)
== END 2017-06-22 14:14 | disposition home or self-care (01) ==
LOC: NEPD 08:20
DX: R10.9 Unspecified abdominal pain (principal); E86.0 Dehydration; R31.9 Hematuria, unspecified; N20.0 Calculus of kidney; E11.9 Type 2 diabetes mellitus without complications; E78.00 Pure hypercholesterolemia, unspecified; F41.9 Anxiety disorder, unspecified; N40.0 Benign prostatic hyperplasia without lower urinary tract symptoms; Z86.73 Personal history of transient ischemic attack (TIA), and cerebral infarction without residual deficits
CPT/HCPCS: 74176; 80053; 81001; 83690; 85025; 85610; 85730; 96361; 96374; 99285; J7030